=== PATIENT | male | born 1945 | race Caucasian/White ===

== ENCOUNTER 2019-12-21 18:23 | Emergency (ER) | payer OTHER ==
--- OUTSIDE RECORDS SUMMARY | 2019-12-21 18:24 | XMS REPORT | Clinical Summary ---
:1945 Author Organization [facility] Address [address] [place] [address] Care Team Providers Name Role Phone Jaiden Gomes MD Primary Care Provider Allergies Active Allergy Reactions Severity Noted Date Comments Adhesive Tape-Silicones 04/15/2016 Codeine 04/15/2016 Hydrocodone 04/15/2016 Medications Medication Sig Dispensed Refills Start Date End Date Status losartan-hydrochlo 0 04/11/2016 Active rothiazide (HYZAAR) 100-25 mg per tablet multivitamin Take 1 0 Active capsule capsule by mouth daily. omega-3 fatty Take by 0 Active acids-vitamin E mouth. (FISH OIL) 1,000 mg capsule tamsulosin TAKE 1 90 capsule 0 07/17/2019 Active (FLOMAX) 0.4 mg CAPSULE BY capsule MOUTH EVERY DAY tamsulosin Take 1 90 capsule 0 11/24/2018 Discont inued (FLOMAX) 0.4 mg capsule (0.4 9 ( Reorder) capsule mg total) by mouth daily. tamsulosin TAKE 1 90 capsule 0 03/24/2019 Discont inued (FLOMAX) 0.4 mg CAPSULE BY 0 (Re order) capsule MOUTH EVERY DAY Active Problems No known active problems Encounters Date Type Specialty Care Team Description 12/06/2019 Orders Only Urology Harjeet Pastor MD 12/02/2019 Telephone Urology Hong Wilkerson MD 11/30/2019 Telephone Urology Hong Wilkerson MD 11/17/2019 Hospital Encounter Radiology Hong Wilkerson MD 11/17/2019 Office Visit Urology Hong Wilkerson MD Renal mass (Primary Dx) 11/17/2019 Travel 07/17/2019 Refill Urology Hong Wilkerson MD 05/14/2019 Orders Only Urology Hong Wilkerson MD Elevat ed PSA (Primary Dx) 04/30/2019 Telephone Urology Hong Wilkerson MD 03/24/2019 Refill Urology Hong Wilkerson MD 03/12/2019 Telephone Urology Shorty Spring MD 03/12/2019 Telephone Urology Hong Wilkerson MD after 12/20/2018 Family History Medical History Relation Name Comments Heart disease Father Relation Name Status Comments Father Mother Social History Tobacco Use Types Packs/Day Years Used Date Never Smoker Smokeless Tobacco: Never Used Alcohol Use Drinks/Week oz/Week Comments No Sex Assigned at Date Recorded Not on file Job Start Date Occupation Industry Not on file Not on file Not on file Travel History Travel Start Travel End No recent travel history available. Last Filed Vital Signs Not on file Plan of Treatment Health Maintenance Due Date Last Done Comments COLONOSCOPY SCREENING 12/31/1995 SHINGLES VACCINES (#1) 12/31/1995 65+ PNEUMOCOCCAL VACCINE (1 of 2 - PCV13) 2010 INFLUENZA VACCINE 12/25/2019 Procedures Procedure Name Priority Date/Time Associated Diagnosis Comme nts CT ABD/PELVIC Routine 11/05/2019 9:16 AM Results for this EXTERNAL STUDY CDT procedure are in the results section. PROSTATE SPECIFIC Routine 04/26/2019 11:46 AM Elevated PSA Res ults for this ANTIGEN SLUDGE CONTROL OPERATOR procedure are i n the results section. after 12/20/[address] Abd/Pelvic External Study (11/05/2019 9:16 AM CDT) Specimen Narrative Performed At This exam was not acquired at a Methodis t facility and has not been RADIANT interpreted by a Yarsanism Provider. T he exam was imported into our imaging system. Performing Organization Address City/State/Zipcode Phone Number [facility] [address] [place] [address] Prostate specific antigen (04/26/2019 11:46 AM SLUDGE CONTROL OPERATOR) PSA 7.6 (H) < OR = 4.0 [facility] Comment: ng/mL [place] The total PSA value from this assay system is standardized against the WHO standard. The test result will be approximately 20% lower when compared to the equimolar-standardized total PSA (Deep [place]). Comparison of serial PSA results should be interpreted with this fact in mind. This test was performed using the Siemens chemiluminescent method. Values obtained from different assay methods cannot be used interchangeably. PSA levels, regardless of value, should not be interpreted as absolute evidence of the presence or absence of disease. Specimen Blood Narrative Performed At FASTING:NO [facility] FASTING: NO Resulting Agency Comment Performing Organization Information: Site ID: [id number] Name: [email or web address] Address: [address] [place] [id number] Director: Emil Alarcon Performing Organization Address City/State/Zipcode Phone Number [facility] [address] [place] [address] [phone] after 12/20/2018 Insurance Payer Benefit Plan / Subscriber ID Effective Dates Phone Addre ss Type Group MEDICARE MEDICARE PART xxxxxxxxxxx 2010-[place], [place] Medicare A AND B t AETNA MEDICARE AETNA MEDICARE xxxxxxxx 2019-[place] HMO/PPO [facility] t (Work) [id number] Advance Directives For more information, please contact: [phone] Type Date Recorded Patient Eight Section Blower Explanati on Advance Directives, Living Will and Medical Power of Assistant 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
--- OUTSIDE RECORDS SUMMARY | 2019-12-21 18:25 | XMS REPORT | Clinical Summary ---
:1945 Author Organization [facility] Address [address] [place] [address] Care Team Providers Name Role Phone Shelly Gomes MD Primary Care Provider Allergies Active Allergy Reactions Severity Noted Date Comments Codeine Nausea And Vomiting 03/07/2015 Medications Medication Sig Dispensed Refills Start Date End Date Status losartan-hydroCHLOROth Take 1 tablet by 0 Active iazide (HYZAAR) 100-25 mouth daily. mg per tablet POTASSIUM ORAL Take by mouth. 0 Active ascorbic acid (VITAMIN Take by mouth. 0 Active C ORAL) tamsulosin (FLOMAX) Take 0.4 mg by 0 Active 0.4 mg Cap 24 hr mouth daily. capsule Active Problems No known active problems Encounters Date Type Specialty Care Team Description 11/05/2019 Hospital Encounter Radiology Zachery, Second de gree hemorrhoids; Shorty Head MD [facility] a bdominal pain 11/04/2019 Surgery Gastroenterology Zachery, KYREE Head MD ENDOSCOPY,POLYP ECTOMY 11/04/2019 Anesthesia Event Gastroenterology Starr Leahy MD 11/04/2019 Hospital Encounter Gastroenterology Shorty Bingham MD 11/01/2019 Hospital Encounter Pre-Admission Testing Shorty Bingham MD 10/28/2019 Hospital Encounter Pre-Admission Testing 10/28/2019 Travel 10/22/2019 Outside Orders Zachery, Second degree hemorrhoids (Primary Dx); Shorty Head MD [facility] a bdominal pain after 12/20/2018 Social History Tobacco Use Types Packs/Day Years Used Date Never Smoker Smokeless Tobacco: Never Used Alcohol Use Drinks/Week oz/Week Comments No Sex Assigned at Date Recorded Not on file Job Start Date Occupation Industry Not on file Not on file Not on file Travel History Travel Start Travel End No recent travel history available. Last Filed Vital Signs Vital Sign Reading Time Taken Blood Pressure 119/61 11/04/2019 9:55 AM CDT Pulse 58 11/04/2019 9:55 AM CDT Temperature 36.8 C (98.2 F) 11/04/2019 9:25 AM CDT Respiratory Rate 16 11/04/2019 9:55 AM CDT Oxygen Saturation 99% 11/04/2019 9:55 AM CDT Inhaled Oxygen Concentration - - Weight 116.8 kg (257 lb 6.4 oz) 10/28/2019 9:0 3 AM CDT Height 179.1 cm (5' 10.5") 10/28/2019 9:03 AM CDT Body Mass Index 36.41 10/28/2019 9:03 AM CDT Plan of Treatment Not on file Procedures Procedure Name Priority Date/Time Associated Comments Diagnosis CT ABDOMEN/PELVIS Routine 11/05/2019 9:22 Result s for this WITH IV CONTRAST AM CDT procedure a re in the results section. POCT-CREATININE Routine 11/05/2019 9:16 Results for this AM CDT procedure are i n the results section. REPORT OF PROCEDURE 11/04/2019 9:25 - ENDOSCOPY URL AM CDT TISSUE EXAM AP Routine 11/04/2019 9:11 Results for this AM CDT procedure are i n the results section. UPPER 11/04/2019 9:00 Epigastric pain ENDOSCOPY,BIOPSY AM CDT UPPER 11/04/2019 9:00 Epigastric pain ENDOSCOPY,POLYPECTO AM CDT MY SARS-COV2/RT-PCR Routine 11/01/2019 9:03 Results for this ([facility] LAB[facility]) AM CDT procedure are in the results section. after 12/20/[address] abdomen/pelvis with IV contrast (11/05/2019 9:22 AM CDT) Specimen Narrative Performed At Addendum Begins GE RIS REPORT STATUS:A Addendum: The urinary bladder and prostate are unr emarkable. End of addendum. Signed: Anayeli Manzano MD Report Verified Date/Time:11/05/2019 10:50:11 Reading Location: [address] Radiolog y Reading Room Addendum Ends FINAL REPORT CLINICAL HISTORY:Ventral hernia TECHNIQUE:CT of the abdomen and pelv is is performed with intravenous contrast administration. Ent shantell contrast was administered as well This exam was perfo rmed according to our departmental dose-optimization program w hich includes automated exposure control, adjustment of the mA a nd/or kV according to patient size and/or use of iterative reconstruct ion technique. Study is dated 11/05/2019 COMPARISON: None FINDINGS: Lung bases are clear. There is fatty infiltration of the liver. Two hypodensities are seen in the right lobe of the liver, one in the inferior tip of the right lobe me asuring approximately 7 mm and the second near the superior aspect of the right lobe measuring approximately 1.5 cm. Both are compatibl e with cysts. Gallbladder has been removed. No biliary dilatation is n oted. Pancreas and adrenals are unremarkable. There is a heterogeneously enhancing mas s in the medial lower pole of the right kidney measuring approximately 4.7 x 3.5 x 3.6 cm. Multiple parapelvic cysts are seen in the left ki dney. There are adjacent to one another and it is difficult to deter mine an accurate size however the largest appears to measure approxima tely 4.6 x 5.0 cm. No hydronephrosis or renal calculus visuali zed. The patient is status post gastric bypas s. Bowel is otherwise unremarkable. The appendix is within nor mal limits. No free fluid or air. No lymphadenopathy. Vascular structures are grossly unremark able. 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 Bones are osteopenic. Degenerative changes are see n in the spine. Minimal scoliosis of the lumbar spine. IMPRESSION: 1. 4.7 x 3.5 x 3.6 cm heterogeneous righ t renal mass as described in detail above. The mass should be conside red renal cell carcinoma until proven otherwise and consultation with urology is recommended. 2. Multiple left renal parapelvic cysts. 3. Hepatic steatosis and two hepatic cys ts. Signed: Anayeli Manzano MD Report Verified Date/Time:11/05/2019 10:16:00 Reading Location: [address] Radiolog y Reading Room Procedure Note Interface, External Ris In - 11/05/2019 10:52 AM CDT Addendum Begins REPORT STATUS:A Addendum: The urinary bladder and prostate are unr emarkable. End of addendum. Signed: Anayeli Manzano MD Report Verified Date/Time: 11/05/2019 1 0:50:11 Reading Location: [address] Radiolog y Reading Room Addendum Ends FINAL REPORT CLINICAL HISTORY: Ventral hernia TECHNIQUE: CT of the abdomen and pelvis is performed with intravenous contrast administration. Ent shantell contrast was administered as well This exam was perfo rmed according to our departmental dose-optimization program w hich includes automated exposure control, adjustment of the mA a nd/or kV according to patient size and/or use of iterative reconstruct ion technique. Study is dated 11/05/2019 COMPARISON: None FINDINGS: Lung bases are clear. There is fatty infiltration of the liver. Two hypodensities are seen in the right lobe of the liver, one in the inferior tip of the right lobe me asuring approximately 7 mm and the second near the superior aspect of the right lobe measuring approximately 1.5 cm. Both are compatibl e with cysts. Gallbladder has been removed. No biliary dilatation is n oted. Pancreas and adrenals are unremarkable. There is a heterogeneously enhancing mas s in the medial lower pole of the right kidney measuring approximately 4.7 x 3.5 x 3.6 cm. Multiple parapelvic cysts are seen in the left ki dney. There are adjacent to one another and it is difficult to deter mine an accurate size however the largest appears to measure approxima tely 4.6 x 5.0 cm. No hydronephrosis or renal calculus visuali zed. The patient is status post gastric bypas s. Bowel is otherwise unremarkable. The appendix is within nor mal limits. No free fluid or air. No lymphadenopathy. Vascular structures are grossly unremark able. 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 Bones are osteopenic. Degenerative changes are see n in the spine. Minimal scoliosis of the lumbar spine. IMPRESSION: 1. 4.7 x 3.5 x 3.6 cm heterogeneous righ t renal mass as described in detail above. The mass should be conside red renal cell carcinoma until proven otherwise and consultation with urology is recommended. 2. Multiple left renal parapelvic cysts. 3. Hepatic steatosis and two hepatic cys ts. Signed: Anayeli Manzano MD Report Verified Date/Time: 11/05/2019 1 0:16:00 Reading Location: [address] Radiolog y Reading Room Performing Organization Address City/State/Zipcode Phone Number GE RIS POC-Creatinine (11/05/2019 9:16 AM CDT) POC-Creatinine 1.1Comment: : TESTED AT 0.6 - 1.3 mg/dL [facility] [address] [facility], [address]: Child Life Specialist/Ore Washer ID = [id number] for Laura Plunkett POC-EGFR 66 mL/min/1.73M2 [facility] Specimen Blood Performing Organization Address City/[facility] Phone Number [address] [address] CENTER REPORT OF PROCEDURE - ENDOSCOPY URL (11/04/2019 9:25 AM CDT) Narrative Performed At This result has an attachment that is no t available. Tissue Exam (11/04/2019 9:11 AM CDT) Case Report Surgical Pathology Report Case: [id number] [facility] Authorizing Provider:Shorty Haro MDCollected: 11/04/2019 09:11 AM [facility] Endoscopy Received:11/04/2019 11:42 AM Services Pathologist: Alda Van MD Specimens: A) - Polyp, G astric, via forcep B) - Biopsy, Gastric, via forcep R/O H-pylori DIAGNOSIS A. 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 STOMACH, ANTRUM/RANDOM, BIOPSY - CHRONIC INACTIVE GASTRITIS, MINIMAL-MILD - NO INTESTINAL METAPLASIA, DYSPLASIA OR CARCI NOMA IDENTIIFIED - NO HELICOBACTER PYLORI LIKE ORGANISMS IDENTI FIED ON WARTHIN STARRY STAIN Signing Pathologist Direct Phone Line: CPT Code(s) 50377 X 2, [address] [facility] [place] [place] CLINICAL HISTORY Procedure: upper endoscopy, polypectomy and upper endoscopy, Biopsy [facility] Pre and postop diagnosis: Epigastric pain [facility] SPECIMEN SOURCE A. Polyp, gastric, via forceps; [facility] B. Biopsy, gastric, via forceps [facility] rule out H. pylori GROSS DESCRIPTION A. The specimen is received in formalin labeled with the patient's name, accession number and "polyp, gastric" and consists of two godinez- pink mucosal-covered pieces of tissue measuring 0.2 x 0.2 x [address] [facility] The specimen is submitted entirely following fi ltration in a cassette A1. [facility] B. The specimen is received in formalin labeled with the patient's name, accession number and "Biopsy gastric" and consists of one godinez-pink mucosal- covered piece of tissue measuring 0.2 x 0.2 x 0.1 cm. The specimen is submitted en tirely following filtration in a cassette B1. HS/pl MICROSCOPIC DESCRIPTION Performed. [facility] SPECIAL STUDIES The interpretation of this c ase included the use of immunohistochemistry or special stains. [facility] Control Slides Examined: In -house known positive controls were evaluated along with the test tissue. These control slides run alongside of the patients sample show appropriate staining. Internal posit ashtyn and negative controls when available are mu lopez Immunohistochemistry technic al testing was performed at [facility], Pathology Laboratory where it was developed and its performance characteristics were determined. It has not be en cleared or approved by [facility] U.S. Food and Drug Administration. The FDA has determined that such clearance or approval is not necessary. The test is used for clinical purposes. It should not be regarde d as investigational or for research. This laboratory is certified under the Clinical Laboratory Improvement Amendments of 1988 (CLIA-88) as qualified to perform high complexity clinical laboratory testing. Gross assessment was [facility] performed at [place], Department of [facility] Pathology, [address] [place] [id number], Technical component was [facility] performed at [place], Department of [facility] Pathology, [address] [place] [phone], Professional component [facility] was performed at [place], Department of [facility] Pathology, [address] [place] [phone], Specimen Tissue - Polyp, Gastric Tissue - Gastric biopsy sample (specimen ) Performing Organization Address City/State/Zipcode Phone Number [address] [phone] [place] SARS-CoV2/RT-PCR (Asymptomatic ONLY) (11/01/2019 9:03 AM CDT) SARS-COV2/RT-PCR Negative Not Detected, Negative SLE NON -INTERFACED REFERENCE LABS SARS-COV-2 PERFORMING LAB CPL SLE N ON-INTERFACED REFERENCE LABS Specimen Other Performing Organization Address City/State/Zipcode Phone Number [facility] NON-INTERFACED REFERENCE LABS after 12/20/2018 Insurance Payer Benefit Plan / Subscriber ID Type Phone Address Group AETNA - MEDICARE AETNA MEDICARE HMO xxxxxxxx [id number] [place] [address] CDC REVIEW CDC REVIEW xxxxxxxx [place] [address]
--- OUTSIDE RECORDS SUMMARY | 2019-12-21 18:26 | XMS REPORT | Continuity of Care Document ---
:1945 Author Organization [facility] t Address [address] [place] [address] Care Team Providers Name Role Phone JUDI Primary Care Physician Unavailable Ed PALENCIA Attending Clinician Unavailable JUDI Attending Clinician Unavailable SYSTEM, NOT IN Attending Clinician Unavailable Cristina FONTENOT Attending Clinician Unavailable Cristina Fontenot MD Attending Clinician INGRID Attending Clinician Unavailable Ingrid ABREU Attending Clinician Unavailable BECK ART Attending Clinician Unavailable Beck Blair Attending Clinician Judi ABREU Attending Clinician Monica GARCIA, Wally Attending Clinician Unavailable Ed Palencia MD Attending Clinician Carlota ABREU Attending Clinician Catherine Pastor MD Attending Clinician Tevin GARCIA, A Attending Clinician Unavailable Rhea ABREU Attending Clinician Sonido Serrano MD Attending Clinician Sonido SERRANO Attending Clinician Unavailable Manuela Leahy MD Attending Clinician Rehan Spring MD Attending Clinician JUDI Admitting Clinician Unavailable Sonido SERRANO Admitting Clinician Unavailable Payers Payer Name Policy Policy Number Effective Expiration Source Type Date Date AETNA MEDICARE PPO [id number] 00:00:00 MEDICAREMEDICARE PART xxxxxxxxxxx 2010 Jace Lo AND 00:00:00 [place] Bxxxxxxxxxxx8[place] xxxxxxxx 2019 [place] MED[place] H[place]/PPO 00:00:00 Methodis t [id number] resentHMO AETNA - MEDICARE MGD xxxxxxxx [facility] CAREAETNA MEDICARE - [facility] HMO POS Center [id number] [id number] [address] [facility] REVIEWCDC xxxxxxxx [facility] REVIEW[facility]PO - [facility] [phone] Problems Condition Condition Condition Status Onset Resolution Last Treating Co mments Source Name Details Category Date Date Treatment Clinician Date Renal mass Renal mass Disease Active M D 7-12 Anderso 00:00: n 00 Allergies, Adverse Reactions, Alerts Allergy Allergy Status Severity Reaction(s) Onset Inactive Treating Comm ents Source Name Type Date Date Clinician Adhesive Propensi Active 2015-05 Elissato n Tape-Gaby ty to 06-15 Methodi icones adverse 00:00: st reaction 00 s to drug Codeine Propensi Active 2015-05 Elliott ty to 06-15 Methodi adverse 00:00: st reaction 00 s to drug Hydrocod Propensi Active 2015-05 Cassandra n one ty to 06-15 Methodi adverse 00:00: st reaction 00 s to drug Codeine Drug Active Nausea And 2014-05 [facility] - nce 00:00: Medical 00 Center Family History Family Member Diagnosis Comments Start Date Stop Date Source Natural father Heart disease Earl Langston Social History Social Habit Start Date Stop Date Quantity Comments Source Sex Assigned At M MD Bis[place] on Exposure to Not sure MD King SARS-CoV-2 (event) Tobacco use and 2019-12-20 2019-12-20 Never used MD Biswas on exposure 00:00:00 00:00:00 Alcohol intake 2019-12-20 2019-12-20 Ex-drinker MD Nico villatoro 00:00:00 00:00:00 (finding) Smoking Status Start Date Stop Date Source Never smoker MD King Medications Ordered Filled Start Stop Current Ordering Indication Dosage Frequency Signature Comments Components Source Medication Medication Date Date Medication? Clinician (SIG) Name Name ascorbic 2020-0 Yes 1{tbl} Take 1 MD acid 7-13 tablet by Nico (ascorbic 18:19: mouth n acid with 06 twice enrico hips) daily. 500 mg tablet losartan-hy 2020-0 Yes 1{tbl} Take 1 MD drochloroth 6-17 tablet by And thompson dueñas 00:00: mouth n (HYZAAR) 00 daily. 100-25 mg per tablet tamsulosin 2020-0 Yes .4mg QD Take 0.[address] (FLOMAX) 6-04 mg by [facility] - 0.4 mg Cap 08:58: mouth Medica l 24 hr 47 daily. Center capsule ascorbic 2020-0 Yes Take by [facility] acid 6-04 [facility] - (VITAMIN C 08:58: Medical ORAL) 08 Center losartan-hy 2020-0 Yes 1{tbl} QD Take [address] droCHLOROth 6-04 tablet by Harman es - iazide 08:58: mouth Medical (HYZAAR) 07 daily. Center 100-25 mg per tablet POTASSIUM 2020-0 Yes Take by [facility] ORAL 6-04 [facility]. [facility] - 08:58: Medical 07 Center pantoprazol 2020-0 Yes 1{tbl} Take 1 MD e 5-11 tablet by Nico (PROTONIX) 00:00: mouth n 40 mg EC 00 daily. tablet tamsulosin 2020-0 Yes TAKE 1 [place] (FLOMAX) 2-22 CAPSULE BY Metho di 0.4 mg 00:00: MOUTH st capsule 00 EVERY DAY tamsulosin 2018-05 2020- No TAKE 1 [place] (FLOMAX) 0-30 02-22 CAPSULE BY Meth gayle 0.4 mg 00:00: 11:[address] capsule 00 :26 EVERY DAY tamsulosin 2019-0 2019- No .4mg QD Take 1 [place] (FLOMAX) 7-02 10-30 capsule Methodi 0.4 mg 00:00: 00:00 (0.[address] capsule 00 :00 total) by mouth daily. multivitami 2019- Yes 1{capsu QD Take 1 [place] capsule 6-26 le} capsule by Meth gayle 08:20: mouth st 08 daily. omega-3 Yes Take by Elliott fatty 6-26 mouth. Methodi acids-vitam 08:20: st in E (FISH 08 OIL) 1,000 mg capsule losartan-hy 2015-05 Yes [place] drochloroth 1-17 Methodi iazide 00:00: st (HYZAAR) 00 100-25 mg per tablet Vital Signs Vital Name Observation Time Observation Value Comments Source WEIGHT 2019-12-20 08:54:00 113.5 kg WEIGHT 2019-12-20 08:54:00 113.5 kg Systolic blood 2019-12-20 13:54:00 140 mm[Hg] pressure Diastolic blood 2019-12-20 13:54:00 86 mm[Hg] MD Aniya shepherd pressure Heart rate 2019-12-20 13:54:00 65 /min MD Maldonado soriano Body temperature 2019-12-20 13:54:00 36.39 Corazon MD Wally curielon Respiratory rate 2019-12-20 13:54:00 18 /min MD Wally curielon Body weight 2019-12-20 13:54:00 113.5 kg MD Maldonado soriano BMI 2019-12-20 13:54:00 36.43 kg/m2 MD Maldonado soriano Oxygen saturation in 2019-12-20 13:54:00 98 /min MD King Arterial blood by Pulse oximetry Body height 2019-12-06 18:09:00 176.5 cm MD Maldonado soriano Systolic blood 2019-11-04 09:55:00 119 mm[Hg] [facility] Diastolic blood 2019-11-04 09:55:00 61 mm[Hg] [facility] Heart rate 2019-11-04 09:55:00 58 /min [facility] Respiratory rate 2019-11-04 09:55:00 16 /min [facility] Oxygen saturation in 2019-11-04 09:55:00 99 /min [facility] Arterial blood by Medical Ce marisela Pulse oximetry Body temperature 2019-11-04 09:25:[address] [facility] Body height 2019-10-28 09:03:00 179.1 cm [facility] Body weight Measured 2019-10-28 09:03:[address] [facility] BMI 2019-10-28 09:03:00 36.41 kg/m2 [facility] Procedures Procedure Date / Time Performing Clinician Source Performed TYPE AND SCREEN 2019-12-20 16:30:00 Jamil Qiuntero MD ABORH 2019-12-20 16:30:00 Jamil Quintero MD ANTIBODY SCREEN 2019-12-20 16:30:00 Jamil Quintero MD CLOT EXPIRATION DATE 2019-12-20 16:30:00 Jamil Quintero MD rson TMP INTERPRETATION ANTIBODY 2019-12-20 16:30:00 Jamil Quintero MD SCREEN NEGATIVE HC COVID19 AUTOMATED PCR 2019-12-20 13:39:00 Luis F Anderson MD EKG, 12-LEAD (SCHEDULED) 2019-12-20 00:00:00 Hue Art MD [place] XR CHEST 2 VW 2019-12-06 20:38:39 Manpreet Fontenot MD BASIC METABOLIC PANEL, 2019-12-06 20:18:00 Manpreet Fontenot MD CALCIUM TOTAL COMPLETE BLOOD COUNT W/ 2019-12-06 20:18:00 Manpreet Fontenot MD DIFFERENTIAL COMPREHENSIVE METABOLIC 2019-12-06 20:18:00 Manpreet Fontenot MD PANEL TYPE AND SCREEN 2019-12-06 20:18:00 Mapnreet Fontenot MD HEPATITIS C VIRUS ANTIBODY 2019-12-06 20:18:00 Manpreet Fontenot MD GLUCOSE LEVEL 2019-12-06 20:18:00 Manpreet Fontenot MD ELECTROLYTE PANEL 2019-12-06 20:18:00 Manpreet Fontenot MD Maldonado [facility] SERUM CREATININE 2019-12-06 20:18:00 Manpreet Fontenot MD True on .GLOMERULAR FILTRATION RATE 2019-12-06 20:18:00 Manpreet Fontenot MD CALCIUM LEVEL TOTAL 2019-12-06 20:18:00 Manpreet Fontenot ALBUMIN LEVEL 2019-12-06 20:18:00 Manpreet Fontenot MD ALKALINE PHOSPHATASE 2019-12-06 20:18:00 Manpreet Fontenot MD ALANINE AMINOTRANSFERASE 2019-12-06 20:18:00 Manpreet Fontenot ASPARTATE AMINOTRANSFERASE 2019-12-06 20:18:00 Manpreet Fontenot MD TOTAL PROTEIN 2019-12-06 20:18:00 Manpreet Fontenot MD FRACTIONATED BILIRUBIN 2019-12-06 20:18:00 Manpreet Fontenot MD Results CBC 2019-12-06 20:18:00 Manpreet Fontenot MD Andthompson villatoro MANUAL DIFFERENTIAL 2019-12-06 20:18:00 Manpreet Fontenot MD And erson ABORH 2019-12-06 20:18:00 Manpreet Fontenot MD ANTIBODY SCREEN 2019-12-06 20:18:00 Manpreet Fontenot MD BLOOD UREA NITROGEN 2019-12-06 20:18:00 Manpreet Fontenot MD And erson CLOT EXPIRATION DATE 2019-12-06 20:18:00 Manpreet Fontenot MDson TMP INTERPRETATION ANTIBODY 2019-12-06 20:18:00 Manpreet Fontenot MD SCREEN NEGATIVE TMP HCVAB INTERP 2019-12-06 20:18:00 Manpreet Fontenot MD True on CONFIRM ABORH TYPE 2019-12-06 20:08:00 Manpreet Fontenot MD Bam rson URINE CULTURE 2019-12-06 19:56:00 Manpreet Fontenot MD GUA 2019-12-06 19:56:00 Manpreet Fontenot MD GUA MICROSCOPIC 2019-12-06 19:56:00 Manpreet Fontenot MD HC COVID19 AUTOMATED PCR 2019-12-04 14:11:00 Belinda Abarca MD OSI CT ABDOMEN AND PELVIS 2019-11-05 18:19:[address] ABDOMEN/PELVIS WITH IV 2019-11-05 09:22:00 Shorty Serrano [facility] CT ABD/PELVIC EXTERNAL 2019-11-05 09:16:00 Hong Wilkerson [facility] STUDY POCT-CREATININE 2019-11-05 09:16:00 Shotry Serrano [facility] REPORT OF PROCEDURE - 2019-11-04 09:25:17 Shorty Serrano [facility] - ENDOSCOPY [facility] TISSUE EXAM 2019-11-04 09:11:00 Shorty Serrano [facility] UPPER ENDOSCOPY,POLYPECTOMY 2019-11-04 09:00:00 Shorty Serrano [facility] UPPER ENDOSCOPY,BIOPSY 2019-11-04 09:00:00 Shorty Serrano [facility] PATHOLOGY OUTSIDE 2019-11-04 00:00:00 Alda Van MD INTERPRETATION SARS-COV2/RT-PCR ([facility] & 2019-11-01 09:03:00 Shorty [facility]errano [facility] PROSTATE SPECIFIC ANTIGEN 2019-04-26 11:46:00 Hong Wilkerson [facility] Plan of Care Planned Activity Planned Date Details Comments Source Future Scheduled Test 2019-12-25 INFLUENZA VACCINE [facility] 00:00:00 [code = INFLUENZA VACCINE] Future Scheduled Test 2010 65+ PNEUMOCOCCAL Ho [facility] 00:00:00 VACCINE (1 of 2 - PCV13) [code = 65+ PNEUMOCOCCAL VACCINE (1 of 2 - PCV13)] Future Scheduled Test 1995-12-31 COLONOSCOPY SCREENING [facility] 00:00:00 [code = COLONOSCOPY SCREENING] Future Scheduled Test 1995-12-31 SHINGLES VACCINES [facility] 00:00:00 (#1) [code = SHINGLES VACCINES (#1)] Future Appointment 2019-12-23 Yvonne West MD, Stacie King 12:20:00 [place] [address] Future Appointment 2019-12-23 Yvonne West MD, Stacie King 12:20:00 [place] [address] Encounters Start End Encounter Admission Attending Care Care Encounter Source Date/Time Date/Time Type Type Clinicians Facility Department ID 2019-12-16 Outpatient BILL PALENCIA MDA MDA [id number] 14:31:18 JULI villatoro 2019-12-07 Outpatient [facility] [id number] 10:24:35 YVONNE villatoro 2019-12-06 Outpatient LUCIE MARQUEZ MDA [id number] 13:52:23 PROVIDER True villatoro 2019-12-21 2019-12-21 Outpatient EL JUDI, MDA MDA [id number] 00:00:00 00:00:00 YVONNE villatoro 2019-12-20 2019-12-20 Outpatient EL SUNNI, MDA MDA [id number] 08:47:19 10:55:18 MANPREET villatoro 2019-12-20 2019-12-20 Outpatient EL INGRID, MDA MDA [id number] 10:45:00 10:45:00 JAMIL villatoro 2019-12-20 2019-12-20 Outpatient EL ADDIS, MDA MDA [id number] 10:00:08 10:00:08 HUE villatoro 2019-12-20 2019-12-20 Outpatient EL JUDI, MDA MDA [id number] 08:31:32 08:31:32 YVONNE villatoro 2019-12-06 2019-12-06 Outpatient BILL FONTENOT, MDA MDA [id number] 14:56:36 23:59:00 MANPREET villatoro 2019-12-06 2019-12-06 Outpatient EL SUNNI, MDA MDA [id number] 15:25:11 15:25:11 MANPREET villatoro 2019-12-06 2019-12-06 Outpatient EL JUDI, MDA MDA [id number] 13:16:13 13:16:13 YVONNE villatoro 2019-12-06 2019-12-06 Outpatient EL MDA MDA [id number] 13:05:18 13:08:05 True villatoro 2019-12-06 2019-12-06 Outpatient EL JUDI, MDA MDA [id number] 13:06:32 13:06:32 YVONNE villatoro 2019-12-04 2019-12-04 Outpatient EL JUDI, MDA MDA [id number] 09:04:12 09:04:12 YVONNE villatoro 2019-11-17 2019-11-17 Outpatient [facility] [id number] [place] 00:00:00 00:00:00 M, HONG [address] 2019-11-17 2019-11-17 [id number] [place] 00:00:00 00:00:00 M, HONG [address] Results Test Description Test Time Test Comments Results Result Comments Source COVID-19 (SARS-CoV-2) PCR-Asymptomatic 2019-12-20 23:43:4 7 Test Item Value Reference Range Interpretation Comme nts COVID19 (SARS CoV-2) Not Detected Not Detected This te st is a qualitative Result (test code = reverse- transcriptase polymerase 61164-6) chain reaction (RT-PCR) developed for [facility] system and intended for the detection of SA RS CoV-2 RNA in human nasophary ngeal specimens from patients w ho meet COVID-19 clinical and/or epidemiological criteria. This assay has been approved by the FDA for use only under Emergency Use Authorization ( EUA) in laboratories th at have been CLIA-certified to perform moderate-comple xity and high-complexity tests. The performance carmen racteristics of this assay were verified by the Microbiology La boratory at [facility]. Results must be interpr eted within the context of all relevant clinical and laboratory findings and should not form the sole basis for a diagnosis or treatment decision.Electromechanisms Design Drafter al controls are included to ass ess for possible amplification i nhibitors. If inhibition is d etected, testing is repeated and if inhibition is confirmed the s pecimen is resulted as "In valid". "Inconclusive" results are due to partial ampl ification of SARS-CoV-2 targ ets. When this occurs, results are confirmed by repeat testing before issuing an "Inconclusive" result. When an "Invalid" or "I nconclusive" results occur, it is recommended to wait a minim um of 3 days before submitti ng a new specimen for testing if clinically indicated. COVID19 SARS Source RFP WRITER Swab (test code = 56777) COVID19 SARS Pre-OR Procedure Indication (test code = 18803) [facility] Interpret[facility] Antibody Screen [id number] 21:21:00 Test Item Value Reference Range Interpretation Comments TMP Auto Neg At the present ABSC Interp time, patient (test code = plasma shows no ____ALONZO NORIEGA 7535) evidence of RBC KNOPFELMACHE R alloantibodies. MARKOS,Dicta roger by: ALONZO BURROWS,Dictated Date/Time: 11.24 16:21 PM CDT Transcribed Taras e/Time: 12.20.2019 16:2 1 PM CDTElectronical ly Signed By: ALONZO AGUIRRE, on 12.20.2019 1 6:21 PM MD KingAntibody [id number] 18:29:57 Test Item Value Reference Range Interpretation Comments ABSC. (test code = 890-4) Negative ABSC MD [id number] 18:29:56 Test Item Value Reference Range Interpretation Comments ABORh. (test code = 882-1) A NEG MD KingClot Expiration [id number] 18:29:52 Test Item Value Reference Range Interpretation Comments T & S Expiration (test code = 12/23/2019 5318) MD KingPathology Outside [id number] 18:34:00 Test Item Value Reference Range Interpretation Comments Materials Received (test f3xpvVBmHRRaiQCmGrRt code = 9973) MMBlNVRbj9krWOJebRYx ZzEwMzNcZnRuYmpcdWMx YZZeKrVyn8owm198uSQy q4imYWLfOjX3vMAhOGEh jEIeP218XWInVQijy7dm z1VcAZTnhTGmk4Q5USWT ymwxbVz5iNorC54wl5X1 QrmfB2odOEEuBTIhW2Sa HP3cJCTuVcl7PSF3YCT5 UBBuEFJyS6DlZQ7uHPJe sOAaRPe6g4mpuSzxACVy GNA5f5agYYvvoaGjKM9q nv7fwKc1i3dwjeJzBWJj FMVamVFQTYJfN1UrgZji Lx5jcIc1mGqlPpkyNCK1 Dnc3CR9kgw69zgr0qVlg FOPrkywgCuZ8QIvcVTIs qywdPQi6ZEbjVXYnjLqt MFxtYXJncjcyMFxtYXJn gYE6TBLjeLDoX4RrYCOp RZauGKJgwfi4NjNbXd9l eQOfnMjwFWvul7hnp4na dNKuTcd9VZWvEdXsHeug OAfyi3Hen5etDDBztu0f GFI6nYMjkUyyn5A3aDCq TEAhwQUxwvSiBWCrak78 jLYjeTJziOOvqw6sgfMd cZKdeJAsLXN1pYElsfVz FCArgLAwVDYeFI8bhWCo HRDjcK5mwnnlKBAxOhOp xkyiQIThtKvzplXzGd3n eRwcCBA6RWaoJ7guxU1v GiK8HLefW1mteS2hPOx7 UWbnfVR4LJLksL4iMR9z rnnbw3suJdDjTE4muclo k7njQtMhYA2ybaz0r0dw WHN2ZAajZZWzIrK3urV0 NDBcaGVhZGVyeTcyMFxm j043EYX2YqLvNKBuv2Qt L2JdhYxhN29zuVfmD31z BWJsgGvcrP7yzIxikY8s IwKmNpQqTRy6ec87UEj2 swbdsCbeWDn0gjQoOENg CCO9THMglANzYKUeZ7o8 jhWdQFOfJNU7FLIttKYa AKUkX0i0otFkTAC2QIe1 cnBhZGRmdDNcdHJwYWRk YjBcdHJwYWRkZmIzXHRy iJEkpUCrpWLruU0ldScu GFMyrBTkcJ5zLFT7YDOl cmgzMjBcdHJoZHJcbHRy gq59QQBocfPmiHUwiGkq vCLxHNB8SSFhZOIuOKZl SAB5UTWcTbIfebRfDZso bGJyZHJiXGJyZHJzXGJy MOL2JJCcCvGagfFkFGsw bGJyZHJsXGJyZHJzXGJy SYO0MBCbCrImmrAzMKwn bGJyZHJyXGJyZHJzXGJy MBH3COTvDsVosvEhYJzk bHBhZHQxMFxjbHBhZGZ0 D4xvlALeYMZrBWdyaZMw CTAlU1wsqHFsKMswRABd cGFkZmwzXGNscGFkYjBc T1fbAQHxXuGdZ9MhlMt8 MDAwXGNsdmVydGFsdFxj jBKvPLU4VCLaXMMoPRSk WVV4ODIhEcPnnfOiJOwj bGJyZHJiXGJyZHJzXGJy CER8TZLhBgVqbfXqFYeh bGJyZHJsXGJyZHJzXGJy XXB7SLDyCpZiytZkDPux bGJyZHJyXGJyZHJzXGJy EXO3EUTkZvAipqVyYYcs bHBhZHQxMFxjbHBhZGZ0 B7whrACdYXKqMRzonERy UUOsI6lmiSDqNBkrXRSc cGFkZmwzXGNscGFkYjBc N8rtPVOyAcIlP0IhbRm5 NjAwXGNsdmVydGFsdFxj rWFhYQK2RUCpIIReYFXi SCJ7OGFsTpZpfwHmUPfn bGJyZHJiXGJyZHJzXGJy ELF4RXMtOeZqzgIwBSlx bGJyZHJsXGJyZHJzXGJy RFH3SWUzIbRhzxUiZMmt bGJyZHJyXGJyZHJzXGJy HMK4VTZbHyJqpoAlXOyv bHBhZHQxMFxjbHBhZGZ0 A1vhxKMtXMHpERuqwRCl SFAwE8hsoUHoKQmbWNJj cGFkZmwzXGNscGFkYjBc J9egJZCbByLmK4PskRf7 EkOjIXVceiHrzE01Vbvw h1SiRVXmILK8UBqhLBiy bFxwbGFpblxmMVxmczIw NToislyjUWXoNBzzE1vf HpGpPLDvaJdoNGhxo8Vh XGYxXGNmMlxmczIwXGIg ZMTwROEswN9tJktmP4Nz dA7hZRqhGmauE4hrECZd u0LplU4iCVgieXUcixxr MVxmczIwXGxhbmcxMDMz SEqsM3ouGxZlJZKsrWsm HDkrk7RkQGHzQAYxZjst ycBhXUg8ikHsMBOfdOsq oQElYHdcagKkgZwqz0Fd fcXtpEuiTDUoBSc9jeEb csznuLi7xWTguTpkTXKl yIgidK5vRfJuIxKzTVmp bGFpblxmMVxmczIwXGxh krbdJUHsMTxyI2adGjGg LCTdnVfhWGlbf1CmUUDf OURwXfhtluLeYNXpW88c bGVjdGVkXHBsYWluXGYx XGZzMjBcbGFuZzEwMzNc aGljaFxmMVxkYmNoXGYx LGvlW8yfOuOqG8IyEAYc GdKrbEKhU9pgX4NwlEjg YXJkXGludGJsXHNzcGFy CTE4dDYjfeYxiDKehRTq ELMkOMssGWS5wNTmwqbg pABdlhwvLRybjwY1VTAd YWluXGYxXGZzMjBcbGFu ZzEwMzNcaGljaFxmMVxk DoKaHNHuMAdcU6scSsHn S8FoQEEwAvDqZnLURGOe aXZlZFxwbGFpblxmMVxm czIwXGxhbmcxMDMzXGhp A1qkCeHkIVMjaLjrKYos f7RuAEAtYLRjDsmzlxUl VTn7xgZjLMWogQpbxR57 Oqhlgl49BPXqo9qxOOHv M3BmgOOaSKOdbDHuJLvd MDhcdHJwYWRkZmwzXHRy cGFkZHIxMDhcdHJwYWRk ZnIzXHRycGFkZHQwXHRy jVCiQMK1Q4t3bpWyUPGb JTo4fkRnIEMeDtYmlKSp PNO0AIw9KuewtwL6fHAp S5v6DyujolFfNQtsfFVt ud06IEQudsQqpVAmeSgb fAGgFZQ8IOAqYLPfOCFs PLO9WNFjByWrevDfNUev bGJyZHJiXGJyZHJzXGJy IHN5VXEuXfSfnrNiVJhy bGJyZHJsXGJyZHJzXGJy CHI2ECTrWmEvqsHkEOnr bGJyZHJyXGJyZHJzXGJy EXV7CALnGjFdlqZwVOjo bHBhZHQxMFxjbHBhZGZ0 Z3zvdSXyHXDfQDtphDOm KUHkU7lcfWYbLEohIWWz cGFkZmwzXGNscGFkYjBc R0mfAIKgUqOaY8RehYh4 MDAwXGNsdmVydGFsdFxj eAKvEPD6QXRoVQDiNPUl QSB3KEDgVuFjxuLaOGnq bGJyZHJiXGJyZHJzXGJy FXW9OJUzFlNlveAdNKhm bGJyZHJsXGJyZHJzXGJy HVA6FDWbTgEttyUtRRci bGJyZHJyXGJyZHJzXGJy JZU2NEOjVjPjwsDsDQuj bHBhZHQxMFxjbHBhZGZ0 S3zhmLFhNLOdNLxgsQMz VMLaU7riuZKaEUrbGVFa cGFkZmwzXGNscGFkYjBc V8wmTGMqDlYoD5KivHu1 NjAwXGNsdmVydGFsdFxj fMWfQMW1HILhMPDyATUe SDT4EQEpEwLscnDdGYqv bGJyZHJiXGJyZHJzXGJy ZFN4ZUXhXdRkulFtPIte bGJyZHJsXGJyZHJzXGJy SWY1BUGmZyRgezBcXKhb bGJyZHJyXGJyZHJzXGJy URF1OUHdEcIdsiLeMTcl bHBhZHQxMFxjbHBhZGZ0 D9rgmLHlWWTuMDnsfFYl NKMfB3rksFRnTQpmGWVs cGFkZmwzXGNscGFkYjBc P3zmQSHvOuNlN1DxyBr1 DwIiPYDgtcOlwW75Emkp x7HfCLQxXNY3UGzvOVro bFxwbGFpblxmMFxmczI0 XHBsYWluXGYxXGZzMjBc bGFuZzEwMzNcaGljaFxm STkeApSzLAAaCJmzO2qc NzHjI2EvONOaNvUqLN3x OfCnDWY8SiS2KBE5DLQS YHHiZNKAF8ANKyclDQNL S7TxbXqmuL7qSeEdJfVh OBxxIE5yWHOqL0fmeBCg NHXyQKVvW3pyOwNeuH4b aFxmMVxjZjJcZnMyMFxs dHJjaFxjZWxsXHBhcmRc zN48Hqglh1JuJNPhCIF7 MFxzMFxxbFxwbGFpblxm UTcowrI7ESTfRGnbSWUa XGZzMjBcbGFuZzEwMzNc aGljaFxmMVxkYmNoXGYx HVnbV3gvWeMdI8UnNBUt IcUaXf6zOF0uMZNlSVTw YWluXGYxXGZzMjBcbGFu ZzEwMzNcaGljaFxmMVxk MhRyJJMdIOclC6saBdEm M8VdPTHsVoCzgGSlJ1fu Z3BelZafKYSiBUsvgMRd IJJccNSgQFK8pEMwwjTh iRkcwPpacF9eRvUtUlBk NFxwbGFpblxmMVxmczIw KAtgvyysNMMoUFpmG6vw KiWmTGVcvNdnFBnpi3Ot XGYxXGNmMlxmczIwIDcv MjMvMjAyMFxwbGFpblxm MVxmczIwXGxhbmcxMDMz WQvxI9bdStTdNQFkuDzj NCjna5JvSJIpEKFpGexp jlVwDCk6fsQpXSBwnOri iC54Vdwbuj91LYJzrlSf x8JiZQNxTCN6LMqvKLkw bFxwbGFpblxmMFxmczI0 XHBsYWluXGYxXGZzMjBc bGFuZzEwMzNcaGljaFxm ITwwNuNoUKOtKGjkO9nx ZjFcZnMyMFxwYXJ9 Diagnosis (test code = b0elpJTiGFKspNP7ZCJj 34) YYKby5mef5EdgCZboZRq EEbtuFUtdsVulx37eIV7 mS78WG5oJZFfRrE6JVRg mlG6Fbs1ZUHnMPDfhVDc A374a5yak2euauFhnEL2 fVxwYXJkXHBsYWluXGZz QrUqYAnfzZAig7J8n6cs VNMrhWxoSRYxQn5sDM2u NjMzNiwgcGFydHMgQSBh xpGgLozaR5rQOUT7CyES rIldA8MiEICuoDThLNXJ x2WhlE7nJDBVTMbjKBUc kfwrSGLlHD3cV8OwsJLr nJztJ0RywEFfBnQsx0e2 cVoaQvbyiHL9MMvqhW3m UIW5cuOwQrHpcAXvEVPy l2w1yB2tvQasGPLUtvQc aBGJDHatL41fFMM6FLNx fBqts2ImHCooSABuEUUu dGlmaWVkIChzdWJtaXR0 JBBgC5VqqJinnn5DcAXz jbvha2VmiF4oHmqwIRMc fWCnUJFaLDT9b96sZ6aq CVVgvQS3rG3nYW6rp55c OKFfd7PtnTwoeYwgIHQM yVgubImpWN75G63fFHX8 kUDhTL4ckZUdG2sjj64n DiTofeObwEk1OYNoYTT2 qhd2mZAyUIIchzWOnkPh uPBKHSozM61hIJV1RAFt lPzpr7EjIGvySSVoHGNr dGlmaWVkIChzdWJtaXR0 BJYhC1FndOthyx9SvIOv cvfls6EidM8pVttlBIG6 Disclaimer (test code = b9cglHImBMYzvJGxFwQb 9844) TVZjGXHca4zdPNWlvXAf ZzEwMzNcZnRuYmpcdWMx TZZjIaXkt1thq190gYKr e5akKSQoIvK1vFZrOUSi bOOvN210RRBrJUrkl8ij m1VmGLIutPYnf7B4JYLS fgobiYv2pQqyX67vz6P7 ZdoiG0hrDFTtXGZtH5Yr VU9fZXNiXid3QOK7FUU8 WSIaNXQpZ8TgXI1zLJLe wNVpJAw5d5avvVtnWLCd ROA3w7ylABfsodNhIQ7n uf9fqSc6d2zlbmGrVYZq YAXhwDOTVPGiO8YmxOal Jm2fjXr0xUjtGmrwCEX4 Gpx4LL6mnp44zyo6tJic SKYpzbcaJoR0RYpjALBy ibvzJNu7OOdwWGOjfIY4 FFOmoEUfZ4OtKAJqSY6y lja9TXQ3VZtlICRbPvE2 NDBcaGVhZGVyeTcyMFxm x928ISU1KiEwOC9cT0Er h2P8oP3mcHSeXQYexZOu VyNmZAQgdc7amYGnYHmw b8VxQHO4ufY4gUBbqWDp AZNsFQ85Wcdxq7WdZlun KAC9SVKmusJdj1Iqr9tq AqDthoWiG1nkN1NmYKXv SRWdWRTcXeZmwtQke5Ja m6TdwRYyzGh2c3peECYf GALykWuqa5bwWIB1LLYa Z4O4uZWda9dsNCfdZIGo kBE8lxE5YJGwfPKaY6Yi tR2lDDLbNL9eetj4u4rh HYX5RAfgREUmEfU6dyE1 NDBcaGVhZGVyeTcyMFxm w313ZML3CyPwUSZza7Xu C9AuwLogS25nkKdvR73h HUBsrAfozO9wcPiclB6n ZjBcZnMyNFxxbFxwbGFp ssjkGFecjoG6GSsejmpk JSLiMYluI5vzTeLhCADi zTovYGoxf3DnJEEnKYMv QhmomvM6KBYLq54dEGXt u9SeGBIlqN3awOJfSMsa cbRksSJ7KOqhkcIwEpKx cbKfJBRffQ8jKIWoLW8k OFVoxnHfpf5mslKhMMKp BVWaV3GsxswjoFvwzyZe RHUbgm6soaGdYON9AVLZ XP7MVSUaDZWqp74qRTNu wFwpqX1aaNBrbhFqJHCr f7DkwY9heKAEZNSfS4fu UB2oVCitk4BogZCtzKFg pYV7CHXyd6PyNiVsbuNm dKJmeYGzX4GfnHkiQ7va GLOkOHEbbrCzuYGds1Md BILeaTB2rACaZS8RSjNA m45kWWXgSTPBpcEoJSPn sSlqwLP1xnZ3xS6xBfSE ZiBhcHBsaWNhYmxlLCBj i394bo6dngE4EQTaRZLs fnblq6VwDYZmAULzbA22 AATpJHCjmf9yymaqpPHo jyUiA4Ctvvy8eZ0mRQZt YWluXGYxXGZzMjJcbGFu ZzEwMzNcaGljaFxmMVxk BhRgFAVgJJryY9ckAvTl ZnMyMlxwYXJ9 MD [facility] [id number] 22:58:52 Test Item Value Reference Range Interpretation Comments Final Report (test No growth code = 8488) Path Review - Urine The results have been (test code = 8483) reviewed and electronically signed by Pathologist:JOSÉ ROLDAN MD #[id number] MD [facility] HCV Ab Path [id number] 11:24:45 Test Item Value Reference Range Interpretation Comments HCV Ab Path There is NO Interp (test serologic code = 8923) evidence of ____DEMI KIRK MD - Hepatitis C [id number] b y: DEMI virus antibody. ADWOA BLOUNT MD - [id number] D ate/Time: 12.07.2019 6:24 AM CDT Transcribed Taras e/Time: 12.07.2019 6:24 AM CDTElectronical ly Signed By: DEMI KIRK MD - [id number] on 12.06 6:24 AM Shelly KingHepatitis C Virus [id number] 05:01:00 Test Item Value Reference Range Interpretation Comments HCVAb. (test code Non Reactive Non Reactive Performed at: = 5762) [facility] [id number] [place] [address] [phone] MD [facility] [id number] 22:13:42 Test Item Value Reference Range Interpretation Comments ABORh Confirm. (test code = 882-1) A NEG MD [facility] [id number] 21:12:50 Test Item Value Reference Range Interpretation Comments UA RBC (test code = 1 0- 2 /HPF 7891) UA WBC (test code = 1 0- 2 /HPF 7904) UA Mucous (test TRACE TRACE /HPF code = 7887) UA Bacteria (test NOT SEEN NOT SEEN /HPF code = 7870) UA Squam Epi (test NOT SEEN OCC /HPF code = 7896) AMARILYS (test code = Some reporting parameters AMARILYS) within the Urinalysis test have changed due to the implementation of new instrumentation in the [facility] [place], allowing greater sensitivity of measurement. Urinalysis results reported by the [facility] using existing instrumentation, as well as Urinalysis testing performed manually or by backup methodology at the [facility] will remain relatively unchanged. New reporting parameters and units will now be reported for all campuses. MD KingFractionated [id number] 20:53:38 Test Item Value Reference Range Interpretation Comments Bili Total (test 0.6 mg/dL <=1.2 Testing Per formed at [facility] code = 5096) Lab [facility], [address] [place] [address], [address], [place] [address] Bili Direct (test <0.2 <=0.3 mg/dL Indocyanin e Green (ICG) code = 5094) may cause false ly elevated biliru bin results. Total and direct bilirubi n must not be measured from samples contain ing indocyanine gre en. Testing Perform ed at [facility] Lab [facility], [address] [place] [address], [address], [place] [address] Bili Indirect (test See Note 0-0.9 Unable t o calculate code = 5095) Indirect Biliru bin result due to s ome parameters are outside reportable rang eTesting Performed at [facility] Lab [facility], [address] [place] [address] [address], [address], [place] [address] MD KingGlomerular Filtration [id number] 20:53:37 Test Item Value Reference Range Interpretation Comments eGFR-AA (test 93 >=60 mL/min/1.73 sq. Normal eGFR >= 60 code = 8062) m mL/min/1.73 m2 Note: The eGFR is calcula roger using the CKD-EPI equ ation. The eGFR declines w ith age. eGFR <60 mL/min /1.73 m2 is considered as " decreased". This equation s hould only be used for pat ients 18 and older. Acco rding to the National dney Foundation's dney Disease Outcome Quality Initiative (KDO QI) classification and 2012 Kidney Disease Improving Global Outcomes (KDIGO) Clinical Practi ce Guideline, the stage of CKD should be c ategorized based on estima roger GFR. Stage Descripti on GFR mL/min/1.73 m21 Normal or high GFR >=902 Mildly de creased GFR 60-893a Mildly to moder ately decreased GFR 45-593b Moderately to s everely decreased GFR 30-444 Severely decrea sed GFR 15-295 Kidney failure <15 Testing Performed at [facility] Lab [facility] [employer] [facility], [address], [address], [place] [address] eGFR-JODI (test 80 >=60 mL/min/1.73 sq. Chelsy l eGFR >= 60 code = 8063) m mL/min/1.73 m2 Note: The eGFR is calcula roger using the CKD-EPI equ ation. The eGFR declines w ith age. eGFR <60 mL/min /1.73 m2 is considered as " decreased". This equation s hould only be used for pat ients 18 and older. Acco rding to the National dney Foundation's dney Disease Outcome Quality Initiative (KDO QI) classification and 2012 Kidney Disease Improving Global Outcomes (KDIGO) Clinical Practi ce Guideline, the stage of CKD should be c ategorized based on estima roger GFR. Stage Descripti on GFR mL/min/1.73 m21 Normal or high GFR >=902 Mildly de creased GFR 60-893a Mildly to moder ately decreased GFR 45-593b Moderately to s everely decreased GFR 30-444 Severely decrea sed GFR 15-295 Kidney failure <15 Testing Performed at [facility] Lab [facility] [employer] [facility], [address] [facility], [address], [place] [address] MD AndersonTotal [id number] 20:53:36 Test Item Value Reference Range Interpretation Comments Total Protein (test 7.3 g/dL 6.4-8.3 Testing Performed at [facility] code = 7649) Lab [facility], [address], [address], [place] [address] MD KingCalcium [id number] 20:53:35 Test Item Value Reference Range Interpretation Comments Calcium Lvl (test 9.0 mg/dL 8.4-10.2 Testing Pe rformed at code = 5258) [facility] Lab Ambulat ory Care [facility], [address], [address], [place], [place] [address] MD KingAlkaline Eckecejcwrc2702-17-09 20:53:34 Test Item Value Reference Range Interpretation Comments Alk Phos (test code = 68 U/L 40-129 Testin g Performed at [facility] 4768) [facility], [address], [address], [place] [address] MD KingAlbumin [id number] 20:53:33 Test Item Value Reference Range Interpretation Comments Albumin Lvl (test code 4.1 3.5- 5.2 gm/dL Vicki ting Performed at [facility] = 4763) [facility], [address], [address], [place] [address] MD KingAspartate [id number] 20:53:32 Test Item Value Reference Range Interpretation Comments AST (test code = 25 U/L <=40 Testing Per formed at [facility] 4731) [facility], [address], [address], [place] [address] MD [id number] 20:53:30 Test Item Value Reference Range Interpretation Comments ALT (test code = 22 U/L <=41 Testing Per formed at [facility] 4705) Lab [facility], [address], [address], [place] [address] MD KingElectrolyte [id number] 20:53:29 Test Item Value Reference Range Interpretation Comments Sodium Lvl (test code = 139 136- 145 mEq/L Te sting Performed at [facility] 3574) Lab [facility], [address], [address], [place] [address] Potassium Lvl (test code 3.9 3.5- 5.1 mEq/L T esting Performed at [facility] = 6854) [facility], [address], [address], [place] [address] Chloride (test code = 103 98- 107 mEq/L Testi ng Performed at [facility] 5279) Lab [facility], [facility], [address], [place] [address] CO2 (test code = 5227) 28 22- 29 mEq/L Testi ng Performed at [facility] Lab [facility], [address] [facility], [address], [place] [address] Anion Gap (test code = 8 4- 14 mEq/L Testi ng Performed at [facility] 9325) [facility], [address] [facility], [address], [place] [address] MD King.Serum Sojiprncln9001-04-27 20:53:28 Test Item Value Reference Range Interpretation Comments Creatinine (test code 0.94 mg/dL 0.67-1.17 Testin g Performed at = 5399) [facility] Lab [facility], [address], [address], [place] [address] MD [id number] 20:53:27 Test Item Value Reference Range Interpretation Comments BUN (test code = 21 mg/dL 6-23 Testing Per formed at [facility] 5055) [facility], [address] [place] [address] [address], [address], [place] [address] MD KingGlucose [id number] 20:53:26 Test Item Value Reference Range Interpretation Comments Glucose Level (test code 100 mg/dL 70-99 H Ref erence range is = 5699) valid for fasti ng specimens only. Guidelines established by the [place] Diabet es Association guidelines (Standards of Medical Care in Diabetes 2016. Diabetes Care 2 016; 39: S13-22) are that a fasting gluco se of greater than or equal to 126 mg /dL or a random glu cose greater than or equal to 200 mg /dL with symptoms, that are confirmed b y repeat testing on a different day, meet the criteria fo r diabetes melllenin us. Testing Perform ed at [facility] Lab [facility]ul[facility], [address] [facility], [address], [place] [address] Lab Interpretation (test Abnormal code = 75972-8) MD Fonseca [id number] 20:51:39 Test Item Value Reference Range Interpretation Comments UA Color (test code = 7877) Yellow Yellow UA Appear (test code = 7868) Clear Clear UA Glucose (test code = 7881) NEG NEG mg/dL UA Bili (test code = 7871) NEG NEG UA Ketones (test code = 7884) NEG NEG mg/dL UA Spec Grav (test code = 7894) 1.017 1.002-1.035 UA Blood (test code = 7872) NEG NEG UA pH (test code = 7909) 5.0 4.5-8.0 UA Protein (test code = 7890) NEG NEG mg/dL UA Urobilinogen (test code = 7903) NEG NEG UA Nitrite (test code = 7888) NEG NEG UA Leuk Est (test code = 7886) Trace NEG A Lab Interpretation (test code = Abnormal 28799-6) MD KingCicceuztObkhgiijjuap5939-06-59 20:41:30 Test Item Value Reference Range Interpretation Comments Neutrophil % (test code 54.8 % 42-66 As p art of = 6491) Differential performed at [facility], [address] [place] [address], [address], [place] [address] Lymphocyte % (test code 31.1 % 24-44 = 6194) Monocyte % (test code = 11.5 % 2-7 H 6422) Eosinophil % (test code 1.8 % 1-4 = 5520) Basophil % (test code = 0.6 % 0-1 5068) IGRE % (test code = 0.2 % 0-0.4 IGRE % c ount includes 5958) Metamyelocytes, Myelocytes, and Promyelocytes. As part of Differe ntial performed at [facility], [address] [place] [address], [address], [place] [address] Neutrophil Abs (test 3.44 K/uL 1.7-7.3 code = 6492) Lymphocyte Abs (test 1.95 K/uL 1-4.8 code = 6195) Monocyte Abs (test code 0.72 K/uL 0.08-0.7 H = 6423) Eosinophil Abs (test 0.11 K/uL 0.04-0.4 code = 5521) Basophil Abs (test code 0.04 K/uL 0-0.1 = 5069) IG Abs (test code = 0.01 K/uL 0-0.04 5954) Lab Interpretation Abnormal (test code = 23192-0) MD King.[id number] 20:41:28 Test Item Value Reference Range Interpretation Comments WBC (test code = 8034) 6.3 K/uL 4-11 RBC (test code = 6932) 4.86 4.50- 6.00 M/uL Hgb (test code = 5898) 14.0 14.0- 18.0 gm/dL A s part of CBC or as an individual orderable testi ng performed at [facility] Lab [facility], [address], [place] [address] Hct (test code = 5860) 43.7 % 40-54 As pa rt of CBC or as an individual orderable testi ng performed at [facility] Lab [facility], [address], [place] [address] MCV (test code = 6222) 90 fL 82-98 MCH (test code = 6220) 28.8 pg 27-31 MCHC (test code = 6221) 32.0 31.0- 36.0 gm/dL RDW-SD (test code = 48.1 fL 35.1-46.3 H 6972) RDW-CV (test code = 14.6 % 12-15.5 6971) Platelet count (test 278 K/uL 140-440 As part of CBC or as code = 6832) an individual orderable testi ng performed at [facility] Lab [facility], [address], [address], [place] [address] MPV (test code = 6282) 8.9 fL 4-10.4 INRBC (test code = 0.0 % <=0.0 The INRBC (instrument 5974) NRBC) value ref lects the enumeration of nucleated red b lood cells contained in a 200uL sampleof whole blood analyzed by the instrument. Thi s value maydiffer from the NRBC value reported in a m anual differential,wh ich is based on a 100 cell differential. A s part of CBC testing performed at B Lab [facility] [address] [facility], [address], [place], [place] [address] Lab Interpretation Abnormal (test code = 49328-4) MD KingX-ray Chest 2 [id number] 20:41:07FINDINGS and IMPRESSION: 1. Cardiomediastinal silhouette is unremarkable. 2. No pneumothorax. 3. Minimal basilar atelectasis. 4. No significant effusion, consolidation, or distinct pulmonary nodule. 5. No acute osseous findings. Interface, Radiology Results In - 12/06/2019 3:43 PM CDTFULL RESULT:Examination: XR CHEST 2 VW, 12/06/2019 3:38 PMClinical History: Renal massIndication: Other:, Staging evaluationComparison: NoneTechnique: Posteroanterior, lateral and dual-energy radiographs of the chest.IMPRESSION:FINDINGS and IMPRESSION:1. Cardiomediastinal silhouette is unremarkable.2. No pneumothorax.3. Minimal basilar atelectasis.4. No significant effusion, consolidation, or distinct pulmonary nodule.5. No acute osseous findings.MD KingOSI CT Abdomen and [id number] 18:19:30For comparison only. No interpretation requested.MD KingCT Abd/Pelvic External [id number] 11:41:03This exam was not acquired at a Protestant facility and has not been interpreted by a Protestant Provider. The exam was imported into our imaging system.[facility] [id number] 14:36:00 Test Item Value Reference Range Interpretation Comments Case Report (test code Surgical Pathology = 104) Report Case: [id number] Authorizing Provider: Shorty Serrano MD Collected: 11/04/2019 09:11 AM Ordering Location: [facility] Endoscopy Received: 11/04/2019 11:42 AM Services Pathologist: Alda Van MD Specimens: A) - Polyp, Gastric, via forcep B) - Biopsy, Gastric, via forcep R/O H-pylori DIAGNOSIS (test code = a2unnDNgAKSwo9ykDBTlyP 3220) FuZzEwMzNcZnRuYmpcdWMx FKkydcNfOGnla1GuX6WuIq AwMFxhbnNpXGRlZmxhbmcx MDXdOIL1cjNqFRTlKIdvGR NtBUqdJx4jgUMdrVteDqMo DDGmd3pfsqBDarvthEm2p9 feHYUoXiD8jFZyINxlA6ur xiXizEAtXFGuGAu5eN24JC AyrK4glSPaMPwayjElUDax ceZwotLnUwd8ERWbL8wnHP MuXWBsZ6KpAV8yZLZfYlf9 EVR6PFV9hCvcg5Y4eBNyuH XmyXmaDqMnRrQvGAXKo3Wt WHu8qBzsH4PnUOKfTjV4oE QgUGFyYWdyYXBoIEZvbnQ7 tT35FDnczcT6bFRyt9Gnm6 6cc597eG2ifOTlJUP8EAAi KIVljOFzEUZkGPO0LKBkaM VzZ3u2WtCwzLRlV6K2PiGi kVRzE5B7VoXazVRsH6D2Vk QznJJpAXHanACsDb8igTAe cXPksi4akg01HSP8d5PztR fqPTF9BWJ8CgNrSn5uxEMz ZATtDZ8iYdKkvFHuWGYkgt 21lEglJFrqnrEosG6wWpEs IFAteBZcJXBrLK9lkJBgQH EllE6akojuPNZkBbEmltec FQOujOmfnuXiWm4ooKztKC F5BExdS6ypkP9nWtI2IUbz T0dzsR3gWIi7UUjhwJN3OW AdxS9rGR0hkdnor8maPeRj MN0sayjxs4tuFsEyCZ3voq m6d1uvMjVsLK7udwlrx4hp NzIwXGhlYWRlcnkwXGZvb3 CtlacjGATbo5CrE0AtuYih R83lsJdlO14vEYIldQvogC 5rwRvctQ8zLjElGoLiBSjk bFxwbGFpblxmMFxmczIwXH EnEUwwLVUoEXEbDuMrVL1f C6KOAIHXCuFVV6wNUKXGPX 1IF0hwgLGvYV6hUCAyTM0Q OHASLAPiCOGTZ7BVMCSUCt FHTUVOVCBTVUdHRVNUSVZF TG4LSOYIYlTLStPJUOBJHF EOA0tJXBjxWHVweMqitG5z XnRwJwPqOCEsBFWjAA3WFK lOVEVTVElOQUwgTUVUQVBM KVISQRpxFWuGYVzRH2fWAD 9TRPENKrWKRu6QDNQLMURN VElJRklFRFxwYXIgLSAgIC ZZFfFYVRpEN63ONUBJBHHj VSmFU0LVLXmUR6SwL9LOCQ 2RR51JOGkYGY8FPIAKZMQd E50rI2IABNgJWuYULDHTIu rvP5LHEX0zwHyfqN3fStWf ZnMyMFxwYXJccGFyXHBsYW ckQMHfSWWpMyIwGn5eM8QD APAMMZvnIZ9GNfNAB2ZNWx RPTSwgQklPUFNZXHBhciAt YWKpR4yYU82AOoEEIsYNPH zSIEKLBVZVLfcCAJXuAW4W TklNQUwtTUlMRFxwYXIgLS WcQS4RGLlFTVNUARtETZji TUVUQVBMQVNJQSwgRFlTUE tGK9kRLH5WVYGZTcFUIv6D QSBJREVOVElJRklFRFxwYX BsRAQcLA5VBUyPTQpLE4WU X9WJYqJIRMeISljlQNjIUW BPUkdBTklTTVMgSURFTlRJ RklFRCBPTiBXQVJUSElOIF NUQVJSWSBTVEFJTlxwYXJ9 d8hieOWkPPXgzCNhBUIjGV xhbnNpXGRlZmxhbmcxMDMz ZSL7xpFuZYMeDDyrUKBuNL lcBv1ptKPbxAaoTnMtRSCx s8opqkBFoqovcRk6z0dlMN FkYjP8wNMoEWruP9byhdBo fLFuWDHqNSz0nF69GCMdcM 7koHTaSCrbrkKpAeH7HMvu OWUzYlQ3XFYdwBIdWEOaV2 xyZWQwXGdyZWVuMFxibHVl XVC2dQnoc1H5bYSmuPJdaG qrLxQiBcUuAkYWc1LaMXx1 nNvuS8UkOYCnWzJ0nESjGQ PiVJrqELQhJQAeirX7mI08 NSwcoiG6bRFmm6Oxi92xn1 95fI8dzCNaKBD8YBEnQCTc bGJoCACfLJW1ZHNfcDWgM9 wmAGUqRC3szgecDOvqOAoi MXRuqFB2JGQtfGDgP7CjNT ZiCFgdYVVbvux7PdUmJb8y gPZrzLceWYjlt9kaz4aspF UlHyp9OPXgJcFxXariYTcq o3Oro4kcVYWczs3mJEM5iH AmxUihh8I3oAKdVJQxsGGu PMEfEU6fcQSyNNVqqQ9zre xjXHBnYnJkcmhlYWRccGdi yxTePs6lpXfvOOH6JJfyC7 sjuA2gSgK7GPwwY5kzqH7u ZYm8ZEyyKTCofUN0buT8IM XlwZJvU8AlnR2aFSWkMW9q yqw3y5gjNPK4SCccUZRzKr B9daI5ACTuqLFdFLVkpJvh UQkxy800HTV9DdWkBAAdb5 OnC2PuhPlbU04chHpgQ50b LPYgmEgsvO8qtDwufQ6pBl PkHmCmTDcgjQvvNP7fZITq H4ngxYSjOCEcPAJvZ0jlVv IwnH3tvKcsFDiavpFzVURy Aom0WBIqzXUsOUDlUzi2LK MeABPiA10cmnjsXQC8cR4l u2xwb5FbYCwqPUL1DWMje7 1gJWmbnaI5YYdkCs7nNGFe BEm1RLsaHLX5nR== CPT Code(s) (test code a1thnANtDSEuvKLzNrHvFZ = 3357) TcIMQfg9dzGIWufHBdDqFy MzNcZnRuYmpcdWMxXGRlZm Dqi6qsh119oUIbl0krBICm GxN5eSWlUQPgdBWzR886w8 psh6gkndXqrKW8JDQeHVD1 KYukrpAqlzK6CGtmjXWuPs H0FCntpaIaFPkhjlDfptUa Ygm0HMLhI937RBP0lFrsk3 xwOZR5CCDzKWObIpDhTa6u wHAaQ598ZMEpXTHYUEBupZ l5QIVwgdSjpbBbsAIZr962 S036g0niFOJrkqSgeWpXtp zmz4nsF751GGUieRWmrxSm LrLkXLMteOFdeFB9GYCpZQ 1zzxtbImUmMS9widtiHmLj LQ8cypc0OxIdIA6spmjmVf CqAXavHROttikiVGWvt8Us ksugNU2eC2Voe1C1dG1ibW PeGVZpwVVvSkVzULMtpi9j uUOaVCfdf2QaLTQ9lxE7iO AxfHQmMGBbZB27Osdjn8Mh WqqrMTM6KJQketSmb7Npk5 czFrQjxcTuV8ubD5EgPXTm BMNqYEIdNbYggyXki6Pgb2 PtfLVjoYa2m8qwSSQoVVCv bZlov1whQYO2LHVeL0K5zI Dfr2zxBZrkOCMoxWA1yvpk AOiaSCAdqqE9gqypZTgxMN AvqGU3uzdqUCquDJTqQwY9 hjfxJOcqMATpVYR6YVkcn5 39PLL0BLvlNdxiZJjrYUIj bmNvbnRccGduZGVjXHBsYW luXHBsYWluXGYwXGZzMjRc eYotaMaceD8fLzOmQgGjMX zwCV7yFDQyP0aruJNfPRMn NNXiG9epGzFobF1zgGciVN ulwuVfBTx8JyD9SSppDqbo ODgzMTIgWCAyXHBhcn0= CLINICAL HISTORY (test a9yjcVDzQCKpsPItUmFaQO code = 6546) XuJTSxk5faMYKvyRQgPmWr MzNcZnRuYmpcdWMxXGRlZm Ure6frl771dRSlc5nrUSEf EqX7dGTiTMSjhDEeR918VO ZbURflc9ohs7FlADLirGOw j8R6GWSRbvjnfBu2bVraL0 6lp5V0AeppA3kmUAMoDHyw UNHwNNncvGTlNHV4PLUmKV A9CQcnoeZstbJ4TOoebYEq OpD1FZq4t8sqdVocBLSqXA A5q3ozUErabkObNZ4bqa6u fDp5t3ieamOlVXWlYLBzlK VJSLEyZ7GmrKqiHg8wePb1 xDhnAaicOOG2Ykq6QI6jvw 89ysw2cMnqDDLzfobdVpT5 GMuiEMHvngxwUUu4WOhgQW JnbDcyMFxtYXJncjcyMFxt YXJndDcyMFxtYXJnYjcyMF nhKWCsCUR3DFfwm974NNV3 XLfim9dns9qlrRXcZev5SM CjIaFaGqfxLNlta0Lhl7wj DSRbld2hNUZ3hSBavHfru3 A4hCEyACKctVQcxaKuUSQz IwH9KIujBV1wvg93JOUxVX E5id0gqTYnxAsaxyDwkQVx SLljO7MtFAWio812QBKoJ1 DtCKZxd7S7avCdMyXqBJLd pEK3cmZ3HPQjTBo5yZDadq K8edKkwDUzD7vqpS44DjNz dZCuC8CoxJ43DuPbzBMkA6 CxbE22FeEwnWLvI6RgfF48 BcBczHWhIUCytFPyXy1geQ SqqWYyr7XofKPrLFngD07l p701HARwiyZnX7hycFUfry xwbGFpblxmMFxmczIwXHFs XHBsYWluXGYwXGZzMjBccG syyV7xIlAkLwOyINSEmi3l OTW5otO4EDGkvSUyGREaDK 4dJ81efObgxA4vuCUcV3Yt oIbqHG3zQZXkfPXjDPXvXT 1eC37sbOtyUDPvd8ZchPgj LVVoDQAcERFoSBWph8X5u2 IoYMumF84pt0bjJdArZYLy C6AtbTImJpVzRYiuAWCgnj 0= SPECIMEN SOURCE (test b7rudHXeXDTydNWjWlUfQQ code = 3377) FvQRFjp9arZGFckAHgJcYx MzNcZnRuYmpcdWMxXGRlZm Wke4xmb852pZYvo9obCQDj KnA2jGZfPLButUHhD025MX BcFOwsn1otb5GhZRRceGBs i9S0JPWEltkbxBw9bSbsA1 1ez4O1EbhjI7orWBHnKLcp LRQeHAgjpWUuXER2ZWEwUR E1WFolbxZdzbL9URfmrROd VpO1BLu0w4qnxJscJDCfBQ G8q7ihSGewxuQpJV6nfs1i vUo4y5rpoaZaLORoWRHkqN PRWINrU7NtdZnkEb7mlAf7 kLdvGxexURT8Zkk5OO7dkl 28yoy2wPnfVVQlmucxMhL4 CXvtOHOrvxahUWx6RJfnKM JnbDcyMFxtYXJncjcyMFxt YXJndDcyMFxtYXJnYjcyMF nfWWTpKBT6FKuur529QTR7 VCkch2txy7ahrXOeZmr0ZJ TpHxPtPshhMMdan7Apa8jp EPKquq5eDQB3dPSwnIryj1 V9gJPxHKRqxYBlcqQjXVQl EmE8IHgsDR1xyc76SBXvAF V5oq6uaHFbdOswxvQglJAu GXylZ6GhEEEda376ITHeE6 AaRFVti2U9daKkMhDsXJMn qAO4ghG7VYFgSFb0aXXocj S3ssIolDIjD0pobJ32SaIu xLPnY0KdlV76YfKxuEUgV0 KoyQ93ElDjnTNaA5FxdT70 EiCqxGGkXTLnnISpFj3luZ VdsJRbw0CygIDnJAptB97b y498KNEaedSlG2dcdZPwly xwbGFpblxmMFxmczIwXHFs XHBsYWluXGYwXGZzMjBccG nguN1lRaHnEmOpUFVIEcGT v2q6gFhxV9BbmCGvQymbcj wjNVKtmaFzdGI7ZFPzDMWg c3NxaAcmW1WqbIEvByfefc lhIGZvcmNlcHMgXHBsYWlu XGYxXGZzMjAgcnVsZSBvdX TmzYzvwL1tKfMgYmJdUTOb DU0orNjyi2ZhSVOdhq5= GROSS DESCRIPTION (test l9trkUXmOIQcdDBhXxGkUM code = 3366) XaZBSka2msEVQyvRUgFgXl MzNcZnRuYmpcdWMxXGRlZm Exv0zec680fFRws5mzDHUj VvZ0qRUsOSWqzCQsU603RE JwTLbcj0qcl2CoGFDysGSa h7E0UPVFnvivnCv2aKsbN4 9bg2X1CorlD0nuULQgKKoq FVZzIGbqgSDxGQN3KKHhTD X7UFhyhwYkwgG1ZSegaJZt PzS6JZo3d8sriOkpITDtJF O4o8phXOglzuCbWP1tjn2g fDy2v7vfucItCNYgUTFmpY INVGCmH4XymRexLn9euRz7 iLeuIkhlFMU1Ahv0TX9qbo 94sak8jSetSBGozuxtOcM8 XIuiQLImhpexIDx6LLrxOO JnbDcyMFxtYXJncjcyMFxt YXJndDcyMFxtYXJnYjcyMF kdOMBiMRA0NPobr738CMY6 FYphs9gjm4qddQRtTuo2WH VnSuDqDecyQYohv1Qii4bj LAKcxy6hOTO7zYWhoBjxn8 E6oURhMMOnuULumcKeRJSx VkT5HEkxOS1qgf00YEUgKK H0ba1hvLYmzHjewmHrsLSh FZblH6PmUDXez083AFVqR2 CtBCVlv3W2iyNuIiMuNVXf aZR1kkI9IEUgPWw6bTLnbw Z6piPqrECnR1mukZ81CkQh gSMsK6JyhR56UuXgyLNbH4 KjxJ37RmKxqYJtF9BydW25 SqAivQHqGZNmuEWvXc6kvM YvyNOgg6VjmVNoSBgwT77d l059ZQWxwhSdG7iioXAvkl xwbGFpblxmMFxmczIwXHFs XHBsYWluXGYwXGZzMjBccG vmuL0lXiOkUvTiAKABNeIE zRIyh9NcW2lwSX5bjKAjJY BsYWluXGYxXGZzMjAgcmVj LPz5WJNspB0iAg5toJQepY 9kjUGdATbsVLW7pBPtQCEc ZPZhUTMzJD77J9PumgEgQJ gcISXhNQFdmC3kDI78xZDk ciBhbmQgInBvbHlwLCBnYX N4ssdkAjIwzbLnN45lp0re aDJsr9XoeGuwKSAtix7dtB 6rXJ67W17iGCfdZ616NPBr YANduGMhIPGuv8SmnYjdo2 JyFB9qYCX6amexMhAkNtLt gTXxAoLdrIDnVvHrZ74bME GfBXCuxZQogN0lhbPgcjJc kEXreMA3QVUhIX93gUXetV dhXg0izS11eF1bJBMqgUAc NDWcn56sdC3lHVJfKHTdHD R9NEDLJR3bRVYazuktZWYo To0lCSqrOCJjXKOhbZIfNT nrQHYhA1YrboRqXBblFQPl do5ibAwbVKptChWeNKPsk1 s6eRO8zTYjrQJ8nXKwqXwp VA9ynNSkWOXvJ6Lte8ctad IwrX0mVZRtAC7mAZJJlU4s n4mbC5CxhWXiRkBmHQ0cGX UrwwWsc7VcNA5lTB3yYFF4 RB9hrQsjhoRezEOpn1TaSR CnirUjWADmpIteM1Uxm5As bKsqm3RiUA3xXTL8dvblLm AwLjIgeCAwLjIgeCAwLjEg M30hTKUiAARlyICwzE4tmz UxhoEjuPDyeEV7TBFnKQ05 hENyoSaxAn2tsE76fZ7cLY NfwFBqRPZgx54drD3kWAOb ASTdSEO7LHOHVY7mMWnJP6 BsXHBhcn0= MICROSCOPIC DESCRIPTION x9tbaTBaSMZbgICsNmTrXR (test code = 3371) TiQNFtk3bnFRDlnNCuRfGa MzNcZnRuYmpcdWMxXGRlZm Vgn9trl988gHVnl3rwEUOj GtX1kJXpEOMayGKgW895i0 zbn3usydTztIQ8LAQsLXH6 XKlifjLegqW9OMgagWGnJo E1OLgpxmQsLPmflsTdnhLt Sgu3AMZcQ053JAM9uYzmm2 keFIO7FHApSMRvNgEnOr6f pBSeH020VLTqYBJJJJTtqR b0BRSpofDqnaVjjGLTp402 A026s7yfNQIagsTxkCnLez ojs4wqK046ZUGsmDMtygRs YkYlIQHqtJXcfNG8ZSBqCA 6utcnrKuHpNA2mrtcxCvEt IR6wnzg5DiToPY5bsnywAh RePIwgASNundzhGQDmi1Rf rrfmXL7nK2Evc3W3pS3yeZ MwCSKglQTkPmIzBOUohv4b bOOpIFcly8GqALU7xlE0rO MslFOgRBImTC73Pdqlf6Oq SzngKBY1KPVnmyYfb7Lvr4 ajHwDbxhCjZ9rvI0KdWCSe KOKoDMJdYfXjrtXga4Cnp4 NlvZJumDo9g5aqCYXdNLZa pSxim0hrEKF6IKAuO7Y5nT Gxx2jmWVjdVHBboGS4gklo DQrwPAEerfR5abwdJMjsWI ProCR6jaipNRfwIMFcEjH0 rixeGUxeKUDrLLT9RXkxn1 55NAO7HZctLrhhSJziWDNo bmNvbnRccGduZGVjXHBsYW luXHBsYWluXGYwXGZzMjRc bXlhyTmuiY8cKeEmLbYbVZ rvLP6lAREtA5dhjRAzUYTh QDOwW2dzYoGccJ4jwGhgNS kqjsDkSESyeoMnro4fXO0c cGFyfQ== SPECIAL STUDIES (test w3ybsCGmBGAmrTBgBuMhLP code = 5756) HdSPCsz9zbIWRggKRsVcRj MzNcZnRuYmpcdWMxXGRlZm Wjs3lzk197zZAwu0mkTSMq XlT8hDWhBSCyqXKzP625KY EpERhnc8hfq5ZhPJSniYWh x2L4SKKHPMjaAwOxT355DN CjMAjlg5jzq8RtGJVwxAOk z6D2EVZWbruvsIw5pXxqQ5 7vg2U3QjpuD7ivLKXxUPIk K7ZmAP3uQMNtQzg5ZKO0TP Q5JUFoWQJqK3MkMP2wJNRh hFQtEQz6h3psvNlsVFLkAE O5y1bmAQqdpbZ2LM8fas0q cHz1y1sehjDlIBPtVGLkpT KNVSMqG6SjuQrxZy7oxSx0 l0wcSrbojcK1pRDmYdJnGw MyMFxsaTBccmkwIENvUGF0 kTJZWMc3O821e3elGJGqco ZpgHdUskmpb7vnX216TSBb cGVydzEyMjQwXHBhcGVyaD O5CJYnBC8xxtogZyJkDV8l ksglTcRhZJ8hnux0PhDbON 1hcmdiNzIwXGhlYWRlcnkw VBPrj5HdfvkxIB6aX0Wby0 Q5jF2vxUVmISWdxJIwDuGb ZEZqwo9riBIkCQmzCZM8WY GokzAln1Zow4gqCiNgnuCn X3bvT8FrQWJgTTGiCVJgZt ZxujWmn6Ids5TdeGNaiVd9 j3xkNKOwWFNdiTfpy4fyRQ R8IPGrT1A2eHIzl4gkBUwp VQDhgUD5xfcyRHvmRVPxch J0yziaCTgrPOWtaXX3jkal CGeeRIPrBbO0cyskWYndDE SwDMW4BBtjp110VWD8DNrk YmtwYWdlXHBnbmNvbnRccG duZGVjXHBsYWluXHBsYWlu XGYwXGZzMjRccWxccGxhaW 6yOoSbImSlLoqqIB5dYQDd X1trtCMcSNRjWKDdJ2vnEe UcdY5usTdjUTtoWrLvLkLc LbSGyITadI94IFFvjhO5AE Bqf95wc7McwNpgrmSiWCBa FLqxF5r8EYWuJCWfOOT0x1 Yoh1EocD2rgT3qwYawkV7u pXWpvLA5hjxqz5Tne1BqY0 lhbCBzdGFpbnMuXHBsYWlu XGYxXGZzMjJcbGFuZzEwMz NcaGljaFxmMVxkYmNoXGYx JWieK9wjZtKjH0PiDCVnLu NopKKxS0cktINbUAToplbt bGFpblxmMVxmczIyXGxhbm ijTLMvGPtbC0hfFpLzLJAz zWbuSAqov9MiOBDoIADfZa wsewKoDTWyvuDyk0rhV5nu TMVtTGB6HU9qacYpMqSrDD 8cqB76c5Cue28dz36zhR3d hLUemwOkL94gpBZprGYcz0 ChKVXukkCyzXM3ELXqIJqk mclwz4x1bKH7wQQhmTEqgK A9zRRrmQFwYKWPrNVgRUAg v543sb1sAJWviOQvxuLamX 7zAYkqfwuavVGoLI4jOCJk HXDsQIZrCQ82iwMhWL1ejQ Lhh8wshlUhmFHnc4EwtCG7 OJPuoNUsqlmoKp8sNW48BK GtPFvdqF5ulEPnhxQcFV4m SY8uR7J8hTNrDIShhcUdd6 grAVenFX7uRIPbhYlqCpjc TDFlRBCubjMvdBF2XKNulZ nrvD5bSoSiPeJtOineOC2c LATtF7vedKMkGFKcQXFtV9 olJhMbhO2sbSfaWSylIaMi ZnMyMlxsdHJjaFxwYXJccG wjjL7xKlGhIbRxPephVX3p UWUcR4xqfHHxNUVrIXSdN7 woWfZalN3lfFctYNlbPwVk ZnMyMiAgXHBsYWluXGYxXG ZzMjJcbGFuZzEwMzNcaGlj aFxmMVxkYmNoXGYxXGxvY2 wyVwHlF8FiSMRtVrMgwJKf S7ykdJEwSCJqHHkhVRNoNZ ZzMjJcbGFuZzEwMzNcaGlj aFxmMVxkYmNoXGYxXGxvY2 wzQgIaB0PlVVSjVkXgGG9n eO4ozZhluN1rfROvmJA8xd pjrTHirL9bA6GeYOHdx9Mm rsdfc3LkDLVrgxJlwj8bEO ThbNCBRYghx4HvZ7AlXDr9 h2QntZezaC6zDaQvDwKmGx sqSP1tHMIcW1ndlIUdLKYx RGFmU3xjWfNnbB2quAyyAX tcQcVbGeBeOcy1XHVdTeRh JzkyXHBsYWluXGYxXGZzMj JcbGFuZzEwMzNcaGljaFxm SZjfLqGpLKSjXJlkL2xeYk HwW9ZjPESwLdJlikYTAKYb V5ViGHCryuLzsrcsQXE9sJ 9wr7s4BYzcCz3dBVMpignq u4lxnzDwbFKtm8GbZPFaxt Bsv4DrQVOaazUilXGpNBKh ggPdps3fkoSrNZOuPSVsG6 PxulaliQobjtU1LCRgFJEt lTQgjQlrTLCuFBf7ACmvbo Yhy5UuGtUxpzOwvOZtxaQx OS8jVUNolBBcncDdEHI5QW ZqXFGYJiBoEOMji3BbQA1o TWEvjWruBROhoQ7nu1MqYF Auj91tHSPyHEOKZAHhuVRh IGRldGVybWluZWQgdGhhdC QfsVZbYDGzZPQjZL8oPCUm txJopXAcx4UczZScprCno2 JrynKjCLHhNFR1EoNFjOBj pSJygURdfeW8g5HdKKJeyx LdwNbjgNRmmFEpmOWra5Yt ch7qLDTtj2sejAdzCJ8lqU BiZSByZWdhcmRlZCBhcyBp xwEjz0CrC8C4fA0sAIzsw6 FrKx4sMZXtw2FwpjMhJfNX vOniOSyeSu9vYVSwddkvsP JvL9UwnIbvaDOnPYNyZVIb IHRoZSBDbGluaWNhbCBMYW NsdoL8f8M0JMvjnGPgbtOe PD86YPWbFO7nsDEncZGgc2 LiDOw4WZYzP1wIXY87JVkk YXMgcXVhbGlmaWVkIHRvIH GnjuTvdw3ufHydnXWds16p bZD8sAT8DYClrD8aL9TpHR deSr3eEFOmgigohDZekUwi Lu9lkKkigS8zMnTlTsOlYs dlOH0rSCDiM1cnkCJnFFXt ATOeE6dkGqPetW8wpTetEk xmczIyXHBhclxwYXJkXHBs YWluXGYwXGZzMjRccGxhaW 9xKhZnOpXkTFnkFOK5 Gross assessment was [facility] performed at ([facility], = [phone]) Department of Pathology, [address] [place] [id number], Technical component was [facility] performed at ([facility], = 2777) Department of Pathology, [address] [place] [id number], Professional component [facility] was performed at ([facility], code = 2779) Department of Pathology, [address] [place] [address], [facility]ake[facility] [id number] 14:36:00Surgical Pathology Report Case: [id number] Authorizing Provider: Shorty Serrano MD Collected: 11/04/2019 09:11 AM Ordering Location: [facility] Endoscopy Received: 11/04/2019 11:42 AM Services Pathologist: Alda Van MD Specimens: A) - Polyp, Gastric, via forcep B) -Biopsy, Gastric, via forcep R/O H-pylori A. GASTRIC POLYP BIOPSY- POLYPOID MUCOSAL FRAGMENT SUGGESTIVE OF FUNDIC GLAND POLYP- NO INTESTINAL METAPLASIA, DYSPLASIA OR CARCINOMA IDENTIIFIED- NO HELICOBACTER PYLORI LIKE ORGANISMS IDENTIFIED ON WARTHIN STARRYSTAINB. STOMACH, ANTRUM/RANDOM, BIOPSY- CHRONIC INACTIVE GASTRITIS, MINIMAL-MILD- NO INTESTINAL METAPLASIA, DYSPLASIA OR CARCINOMA IDENTIIFIED- NO HELICOBACTER PYLORI LIKE ORGANISMS IDENTIFIED ONWARTHIN STARRY STAIN Signing Pathologist Direct Phone Line: [phone] signed by Alda Van MD on 11/08/2019 at 2:36 [id number] X 2, [id number] X 2Procedure: upper endoscopy, polypectomy and upper endoscopy, BiopsyPre and postop diagnosis: Epigastric painA. Polyp, gastric, via forceps; B. Biopsy, gastric, via forceps rule out H. pyloriA. The specimen is received in formalin labeled with the patient's name, accession number and "polyp, gastric" and consists of two godinez-pink mucosal-covered pieces of tissue measuring 0.2 x 0.2 x 0.1 cm. The specimen is submitted entirely following filtration in a cassette A1. B. The specimen is received in formalin labeled with the patient's name, accession number and "Biopsy gastric" and consists of one godinez-pink mucosal- covered piece of tissue measuring 0.2 x 0.2 x 0.1 cm. The specimen is submitted entirely following filtration in a cassette B1. HS/plPerformed.The interpretation of this case included the use of immunohistochemistry or special stains.Control Slides Examined: In-house known positive controls were evaluated along with the testtissue. These control slides run alongside of the patients sample show appropriate staining. Internal positive and negative controls when available are evaluated Immunohistochemistry technical testingwas performed at [facility], Pathology Laboratory where it was developed and its performance characteristics were determined. It has not been cleared or approved by the U.S. Food and Drug Administration. The FDA has determined that such clearance or approval is not necessary. Thetest is used for clinical purposes. It should not be regarded as investigational or for research. This laboratory is certified under the Clinical Laboratory Improvement Amendments of 1988 (CLIA-88) as qualified to perform high complexity clinical laboratory testing.[facility], Department of Pathology, [address] [place] [address], [facility]ology, [address] [place] [id number], [facility], Department of Pathology, [address] [place] [address], [id number] 11:18:00 Test Item Value Reference Range Interpretation Comments POC-Creatinine (test 1.1 mg/dL 0.6-1.3 : TESTE D AT [place] [address] code = 1859) [facility], [address]: Director Of Occupational Health/Techni keaton ID = [id number] for Laura Guillory POC-EGFR (test code 66 mL/min/1.73M2 = 1860) [facility]-[id number] 11:18:00 Test Item Value Reference Range Interpretation Comments POC-CREATININE 1.1 mg/dL 0.6-1.3 : TESTED AT [facility] (test [address] code = 1859) [place], [address]: Director Of Occupational Health/Techni keaton ID = [id number] for Laura Plunkett POC-EGFR ([place]) 66 mL/min/1.73M2 (test code = 1860) CT, [id number] 10:50:00Addendum BeginsREPORT STATUS:A Addendum:The urinary bladder and prostate are unremarkable. End of addendum. Signed: Anayeli Rucker MDReport Verified Date/Time: 11/05/2019 10:50:11 Reading Location: [address] Radiology Reading RoomAddendum EndsFINAL REPORT CLINICAL HISTORY: Ventral hernia TECHNIQUE: CT of the abdomen and pelvis is performed with intravenous contrast administration. Enteric contrast was administered as well This exam was perform ed according to our departmental dose-optimization program which includes automated exposure control, adjustment of the mA and/or kV according to patient size and/or use of iterative reconstruction technique. Study is dated 11/05/2019 COMPARISON: None FINDINGS: Lung bases are clear. There is fatty infiltration of the liver. Two hypodensities are seen in the right lobe of the liver, one in the inferiortip of the right lobe measuring approximately 7 mm and the second near the superior aspect of the right lobe measuring approximately 1.5 cm. Both are compatible with cysts. Gallbladder has been removed. No biliary dilatation is noted. Pancreas and adrenals are unremarkable. There is a heterogeneously enhancing mass in the medial lower pole of the right kidney measuring approximately 4.7 x 3.5 x 3.6 cm. Multiple parapelvic cysts are seen in the left kidney. There are adjacent to one another and itis difficult to determine an accurate size however the largest appears to measure approximately 4.6 x 5.0 cm. No hydronephrosis or renal calculus visualized. The patient is status post gastric bypass. Bowel is otherwise unremarkable. The appendix is within normal limits. No free fluid or air. No lymphadenopathy. Vascular structures are grossly unremarkable. There is a total left hip arthroplasty in place. Bones are osteopenic. Degenerative changes are seen in the spine. Minimal scoliosis of the lumbar spine. IMPRESSION: 1. 4.7 x 3.5 x 3.6 cm heterogeneous right renal mass as described in detail above. The mass should be considered renal cell carcinoma until proven otherwise and consultation with urology is recommended.2. Multiple left renal parapelvic cysts.3. Hepatic steatosis and two hepatic cysts. Signed: Anayeli Rucker MDReport Verified Date/Time: 11/05/2019 10:16:00 Reading Location: [address] Radiology Reading Room CT abdomen/pelvis with IV contrast 2019-11-05 10:16:00Interface, External Ris In - 11/05/2019 10:52 AM CDTAddendum BeginsREPORT STATUS:A Addendum:The urinary bladder and prostate are unremarkable. End of addendum. Signed: Anayeli Rucker MDReport Verified Date/Time: 11/05/2019 10:50:11 Reading Location: [address] Radiology Reading RoomAddendum EndsFINAL REPORT CLINICAL HISTORY: Ventral hernia TECHNIQUE: CT of the abdomen and pelvis is performed with intravenous contrast administration. Enteric contrast was administered as well This exam was performed according to our departmental dose-optimization program which includes automated exposure control, adjustment of the mA and/or kV according to patient size and/or use of iterative reconstruction technique. Study is dated 11/05/2019 COMPARISON: NoneFINDINGS: Lung bases are clear. There is fatty infiltration of the liver. Two hypodensities are seenin the right lobe of the liver, one in the inferior tip of the right lobe measuring approximately 7 mm and the second near the superior aspect of the right lobe measuring approximately 1.5 cm. Both arecompatible with cysts. Gallbladder has been removed. No biliary dilatation is noted. Pancreas and adrenals are unremarkable. There is a heterogeneously enhancing mass in the medial lower pole of theright kidney measuring approximately 4.7 x 3.5 x 3.6 cm. Multiple parapelvic cysts are seen in the left kidney. There are adjacent to one another and it is difficult to determine an accurate size however the largest appears to measure approximately 4.6 x 5.0 cm. No hydronephrosis or renal calculus visu alized. The patient is status post gastric bypass. Bowel is otherwise unremarkable. The appendix is within normal limits. No free fluid or air. No lymphadenopathy. Vascular structures are grossly unremarkable. There is a total left hip arthroplasty in place. Bones are osteopenic. Degenerative changes are seen in the spine. Minimal scoliosis of the lumbar spine. IMPRESSION: 1. 4.7 x 3.5 x 3.6 cm heterogeneous right renal mass as described in detail above. The mass should be considered renal cell carcinoma until proven otherwise and consultation with urology is recommended.2. Multiple left renal parapelvic cysts.3. Hepatic steatosis and two hepatic cysts. Signed: Anayeli Ruckereport Verified Date/Time: 11/05/2019 10:16:00 Reading Location: [address] Radiology Reading Room [facility]2019-11-02 09:00:00 Test Item Value Reference Range Interpretation Comments SARS-COV2/RT-PCR (test code = Negative Not Detected, Negative 94387-2) SARS-COV-2 PERFORMING LAB [facility] (test code = 67099-6) [facility]2019-11-02 09:00:00 Test Item Value Reference Range Interpretation Comments SARS-COV2/RT-PCR (test code = Negative Not Detected, Negative [id number]) SARS-COV-2 PERFORMING LAB [facility] (test code = 1149180)
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
[2019-12-21 20:42] VITALS: BP 161/86; TEMP 98.4; O2SAT 98
== END 2019-12-21 20:25 | disposition home or self-care (01) ==
LOC: ER 18:23
DX: S16.1XXA Strain of muscle, fascia and tendon at neck level, initial encounter (principal); S39.012A Strain of muscle, fascia and tendon of lower back, initial encounter; V49.49XA Driver injured in collision with other motor vehicles in traffic accident, initial encounter; I10 Essential (primary) hypertension; Z88.5 Allergy status to narcotic agent
CPT/HCPCS: 72125; 99283

== ENCOUNTER 2020-05-24 06:11 | Day surgery (SDC) | payer OTHER ==
--- OUTSIDE RECORDS SUMMARY | 2020-05-24 06:19 | XMS REPORT | Clinical Summary ---
:1945 Author Organization [facility] Address [address] [place] [id number] Care Team Providers Name Role Phone Jaiden [...] CAPSULE BY capsule MOUTH EVERY DAY tamsulosin TAKE 1 90 capsule 0 03/24/2019 [...] Travel 07/17/2019 Refill Urology Hong Wilkerson MD after 05/24/2019 Surgical History Surgery Date Site/Laterality Comments KNEE SURGERY HIP SURGERY Medical History Medical History Date Comments Elevated PSA Erectile dysfunction BPH (benign prostatic hypertrophy) Hypertension Family History Medical History Relation Name Comments Heart disease Father Relation Name Status Comments Father Mother Social History Tobacco Use Types Packs/Day Years Used Date Never Smoker Smokeless Tobacco: Never Used Alcohol Use Drinks/Week oz/Week Comments No Sex Assigned at Date Recorded Not on file Last Filed Vital Signs Not on file Plan of Treatment Health Maintenance Due Date Last Done Comments COVID-19 VACCINE (#1) 1961 COLONOSCOPY SCREENING 12/31/1995 SHINGLES VACCINES (#1) 12/31/1995 65+ PNEUMOCOCCAL VACCINE (1 of 1 - PPSV23) 2010 INFLUENZA VACCINE 12/25/2019 Procedures Procedure Name Priority Date/Time Associated Diagnosis Comme nts CT ABD/PELVIC Routine 11/05/2019 9:16 AM Results for this EXTERNAL STUDY CDT procedure are in the results section. after 05/24/[address] Abd/Pelvic External Study (11/05/2019 9:16 AM CDT) Specimen Narrative Performed At This exam was not acquired at a Method t facility and has not been [facility] interpreted by a [facility] Provider. T he exam was imported into our imaging system. Performing Organization Address City/State/ZIP Code Phon e Number [facility] [address] [place] [address] after 05/24/2019 (Work) [id number] Advance Directives For more information, please contact: [phone] Type Date Recorded Patient Undertaker Assistant Explanati on Advance Directives, Living Will and Medical Power of Electricians Top Helper
--- OUTSIDE RECORDS SUMMARY | 2020-05-24 06:19 | XMS REPORT | Clinical Summary ---
:[address] [facility] Address [address] [place] [address] Care Team Providers Name Role Phone Shelly [...] Head MD Periumbilicpark a bdominal pain after 05/24/2019 Social History Tobacco Use Types Packs/Day Years Used Date Never Smoker Smokeless Tobacco: Never Used Alcohol Use Drinks/Week oz/Week Comments No Sex Assigned at Date Recorded Not on file Last Filed Vital Signs Vital Sign Reading Time Taken Comments Blood Pressure 119/61 11/04/2019 9:55 AM CDT Pulse 58 11/04/2019 9:55 AM CDT Temperature 36.8 C (98.2 F) 11/04/2019 9:25 AM CDT Respiratory Rate 16 11/04/2019 9:55 AM CDT Oxygen Saturation 99% 11/04/2019 9:55 AM CDT Inhaled Oxygen Concentration - - Weight 116.8 kg (257 lb 6.4 oz) 10/28/2019 9:03 AM CDT Height 179.1 cm (5' 10.5") 10/28/2019 9:03 AM CDT Body Mass Index 36.41 10/28/2019 9:03 AM CDT Plan of Treatment Health Maintenance Due Date Last Done Comments COLON CANCER SCREENING COLONOSCOPY 1945 PNEUMOCOCCAL 65+ YRS (1 of 1 - [id number]) 2010 Medicare IPPE (WELCOME TO MEDICARE) 05/26/2019 INFLUENZA VACCINE (#1) 2020 Procedures Procedure Name Priority Date/Time Associated Comments [...] i n the results section. UPPER 11/04/2019 8:53 Epigastric pain ENDOSCOPY,BIOPSY AM CDT UPPER 11/04/2019 8:53 Epigastric pain ENDOSCOPY,POLYPECTO AM CDT MY SARS-COV2/RT-PCR Routine 11/01/2019 9:03 Results for this ([facility] REF LABS) AM CDT procedure are in the results section. after 05/24/[address] abdomen/pelvis with IV contrast (11/05/2019 9:22 AM CDT) Specimen Narrative Performed At Addendum Begins GE RIS REPORT STATUS:A Addendum: The urinary bladder and prostate are unr emarkable. End of addendum. Signed: Anayeli Manzano MD Report Verified Date/Time: 11/05/2019 10:50:11 Reading Location: [address] Radiolog y Reading Room Addendum Ends FINAL REPORT CLINICAL HISTORY: Ventral hernia TECHNIQUE: CT of the abdomen and pelvi s is performed with intravenous contrast administration. Ent [...] Anayeli Manzano MD Report Verified Date/Time: 11/05/2019 10:16:00 Reading Location: [address] Radiolog y Reading Room Procedure Note Interface, External Ris In - 11/05/2019 10:52 AM CDT Addendum Begins REPORT STATUS:A Addendum: The urinary bladder and prostate are unr emarkable. End of addendum. Signed: Anayeli Manzano MD Report Verified Date/Time: 11/05/2019 1 0:50:11 Reading Location: [address] Radiolog y Reading Room Addendum Ends [...] Verified Date/Time: 11/05/2019 1 0:16:00 Reading Location: [address] Radiolog y Reading Room Performing Organization Address City/State/Zipcode Phone Number RIS POC-Creatinine (11/05/2019 9:16 AM CDT) POC-Creatinine 1.1Comment: : 0.6 - 1.3 mg/dL [facility] TESTED AT [address], [address]: Multimedia Designer/Technici an ID = [id number] for Laura Plunkett POC-EGFR 66 mL/min/1.73M2 [facility] Specimen Blood Performing Organization Address [facility] Phone Number [address] [address] CENTER REPORT OF PROCEDURE - ENDOSCOPY URL (11/04/2019 9:25 AM CDT) Narrative Performed At This result has an attachment that is no t available. Tissue Exam (11/04/2019 9:11 AM CDT) Case Report Surgical Pathology Report Case: [id number] [facility] Authorizing Provider: Shorty Silver MD Collected: 11/04/2019 09:11 AM [facility] Ordering Location: [facility] Endoscopy Received: 11/04/2019 11:42 AM MEDICAL CENTER Services Pathologist: Alda Van MD Specimens: A) - Polyp, Ga stric, via forcep B) - Biop sy, Gastric, via forcep R/O H-pylori DIAGNOSIS A. GASTRIC POLYP BIOPSY [facility] Keely ctronically - POLYPOID MUCOSAL FRAGMENT SUGGESTIVE OF FUNDIC GL AND POLYP [facility] signed by Carlota, - NO INTESTINAL METAPLASIA, DYSPLASIA OR CARC [facility] MD Alda on - NO HELICOBACTER PYLORI LIKE ORGANISMS IDENT IFIED ON WARTHIN STARRY STAIN 11/08/2019 at 2:36 PM B. STOMACH, ANTRUM/RANDOM, BIOPSY - CHRONIC INACTIVE GASTRITIS, MINIMAL-MILD - NO INTESTINAL METAPLASIA, DYSPLASIA OR CARCINOMA I DENTIIFIED - NO HELICOBACTER PYLORI LIKE ORGANISMS IDENTIFIED O N WARTHIN STARRY STAIN Signing Pathologist Direct Phone Line: CPT Code(s) 53668 X 2, 33610 X 2 [facility] CLINICAL HISTORY Procedure: upper endoscopy, polypectomy and upper endoscopy, Biopsy [facility] Pre and postop diagnosis: Epigastric pain [facility] SPECIMEN SOURCE A. Polyp, gastric, via [facility] forceps; B. Biopsy, [facility] gastric, via forceps rule [facility] out H. pylori GROSS DESCRIPTION A. The specimen is received in formalin labeled with the patient's name, accession number and "polyp, gastric" and consists of two godinez- pink mucosal-covered pieces of tissue measuring 0.2 x 0.2 x 0.1 cm. [facility] The specimen is submitted entirely following fi ltration in a cassette A1. [facility] B. The specimen is received in formalin labeled with the patient's name, accession number and "Biopsy gastric" and consists of one godinez-pink mucosal- covered piece of tissue measuring 0.2 x 0.2 x 0.1 cm. The specimen is submitted en tirely following filtration in a cassette B1. HS/pl MICROSCOPIC Performed. [facility] SPECIAL STUDIES The interpretation of this c ase included the use of immunohistochemistry or special stains. [facility] Control Slides Examined: In -house known positive controls were evaluated along with the test tissue. These control slides run alongside of the patients sample show appropriate staining. [facility] ashtyn and negative controls when available are evaluated Immunohistochemistry technic al testing was performed at [facility], Pathology Laboratory where it was developed and its performance characteristics were determined. It has not be en cleared or approved by [facility] [place].S. Food and Drug Administration. The FDA has determined that such clearance or approval is not necessary. The test is used for clinical purposes. It should not be regarde d as investigational or for research. This laboratory is certified under the Clinical Laboratory Improvement Amendments of 1988 (CLIA-88) as qualified to perform high complexity clinical laboratory testing. Gross assessment [facility] was performed at [facility] Pathology, [address] [place] [id number], Technical [facility]'S component was [facility] performed at Pathology, [address] [place] [address], Professional [facility]'S component was [facility] performed at [facility], [address] [place] [id number], Specimen Tissue - Polyp, Gastric Tissue specimen (specimen) - Gastric bio psy sample (specimen) Performing Organization Address City/[facility]/Zipcode Phone Number [address] [address] [place] SARS-CoV2/RT-PCR (Asymptomatic ONLY) (11/01/2019 9:03 AM CDT) SARS-COV2/RT-PCR Negative Not Detected, [facility] Negative NON-INTERFACED REFERENCE LABS SARS-COV-2 CPL [facility] PERFORMING LAB NON-INTERFACED REFERENCE LABS Specimen Other - Nasopharyngeal wall structure (b carmen structure) Performing Organization Address City/[facility]/Zipcode Phone Number [facility] NON-INTERFACED REFERENCE LABS after 05/24/2019 Insurance Payer Benefit Plan / Subscriber ID Effective Dates Phone Addre ss Type Group AETNA - AETNA MEDICARE [id number] 2019-Presen [phone] MEDICARE [id number] HMO POS PPO t [id number] [place] [address]
--- OUTSIDE RECORDS SUMMARY | 2020-05-24 06:21 | XMS REPORT | Continuity of Care Document ---
:[address] [facility] t Address [address] [place] [place] [address] Care Team Providers Name Role Phone JUDI Primary Care Physician Unavailable SYSTEM, NOT IN Attending Clinician Unavailable DICK Attending Clinician Unavailable Ed PALENCIA Attending Clinician Unavailable JUDI Attending Clinician Unavailable Judi ABREU Attending Clinician Reno LORENZ Attending Clinician Rhea ABREU Attending Clinician Catherine Moran MD Attending Clinician Dick NGUYEN Attending Clinician INGRID Attending Clinician Unavailable Ingrid ABREU Attending Clinician Unavailable Cristina FONTENOT Attending Clinician Unavailable Cristina Fontenot MD Attending Clinician BECK ART Attending Clinician Unavailable Beck Blair Attending Clinician Unavailable Monica GARCIA, A Attending Clinician Unavailable Ed Palencia MD Attending Clinician Carlota ABREU Attending Clinician Unavailable Catherine Pastor MD Attending Clinician Tevin GARCIA, Wally Attending Clinician Unavailable Sonido Serrano MD Attending Clinician Sonido SERRANO Attending Clinician Unavailable Manuela Leahy MD Attending Clinician JUDI Admitting Clinician Unavailable Sonido SERRANO Admitting Clinician Unavailable Payers Payer Name Policy Type Policy Effective Date Expiration Date Sour ce Number AETNA MEDICARE PPO [id number] 2019 00:00:00 AETNA MEDICAREAETNA [id number] 2019 [place] MED[place] H[place]/PPO 00:00:00 Methodsunitha perez [id number] -PresentO AETNA - MEDICARE [id number] [address] [facility] - MGD CAREAETNA 00:00:[address] MEDICARE HMO POS [id number] [id number] [place] [address] Problems Condition Condition Condition Status Onset Resolution Last Treating Co mments Source Name Details Category Date Date Treatment Clinician Date Renal cell Renal cell Disease Active 2019-05 M D carcinoma carcinoma 0 Bam rso 00:00: n 00 Recovery Recovery Disease Active MD following following 12-23 Bam rso surgery surgery 00:00: n 00 Renal mass Renal mass Disease Active M D 12-04 Anderso 00:00: n 00 Steatosis Steatosis Disease Active MD of liver of liver 11-04 True o 00:00: n 00 Gastric Gastric Disease Active Overview: reflux reflux 05-26 Stage 1 Anderso 00:00: of 5 n 00 Benign Benign Disease Active prostatic prostatic 05-26 Bam rso hyperplasi hyperplasi 00:00: n a a 00 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 05-26 Anderso continuous continuous 00:00: n positive positive 00 airway airway pressure pressure ventilatio ventilatio n n Hypertensi Hypertensi Disease Active 0 M D on on 05-26 Anderso 00:00: n 00 Arthritis Arthritis Disease Active Overview: mild Anderso n Allergies, Adverse Reactions, Alerts Allergy Allergy Status Severity Reaction(s) Onset Inactive Treating Comm ents Source Name Type Date Date Clinician Adhesive Propensi Active 2015-05 [place] Tape-Gaby ty to 06-15 Methodi icones adverse 00:00: st reaction 00 s to drug Codeine Propensi Active 2015-05 Elliott ty to 06-15 Methodi adverse 00:00: st reaction 00 s to drug Hydrocod Propensi Active 2015-05 [place] one ty to 06-15 Methodi adverse 00:00: st reaction 00 s to drug Codeine Drug Active Nausea [facility] 2014[facility] Family History Family Member Diagnosis Comments Start Date Stop Date Source Natural father Heart disease [facility] Social History Social Habit Start Date Stop Date Quantity Comments Source Sex Assigned At M MD [place] Tobacco use and 2020-03-18 2020-03-18 Never used MD [place] exposure 00:00:00 00:00:00 Alcohol intake 2020-03-18 2020-03-18 Ex-drinker MD Nico villatoro 00:00:00 00:00:00 (finding) Smoking Status Start Date Stop Date Source Never smoker MD King Medications Ordered Filled Start Stop Current Ordering Indication Dosage Frequency Signature Comments Components Source Medication Medication Date Date Medication? Clinician (SIG) Name Name ascorbic 2019- Yes 1{tbl} Take 1 MD acid 8-01 tablet by Anderso (ascorbic 18:59: mouth n acid with 45 twice enrico hips) daily. 500 mg tablet celecoxib Yes Renal mass 200mg Take 1 MD (CeleBREX) 7-31 capsule True o 200 mg 00:00: (200 mg) n capsule 00 by mouth twice daily. docusate 2019-0 Yes Renal mass 100mg Take 1 MD sodium 7-31 capsule Anderso (COLACE) 00:00: (100 mg) n 100 mg 00 by mouth capsule twice daily. methocarbam 2019-0 Yes Renal mass 500mg Take 1 MD ol 7-31 tablet Anderso (ROBAXIN) 00:00: (500 mg) n 500 mg 00 by mouth tablet every 8 (eight) hours as needed for muscle spasms. traMADol 2019-0 Yes Renal mass 100mg Take 2 MD (ULTRAM) 50 7-31 tablets Maldonado so mg tablet 00:00: (100 mg) n 00 by mouth every 6 (six) hours as needed for moderate pain or severe pain. aspirin 81 2020-0 2020- No Renal mass 81mg Chew 1 MD mg chewable 7-31 08-31 tablet (81 A nderso tablet 00:00: 04:59 mg) daily n 00 :00 for 30 days. losartan-hy 2019-0 Yes 1{tbl} Take 1 MD drochloroth 6-17 tablet by And erso iazide 00:00: mouth n (HYZAAR) 00 daily. 100-25 mg per tablet losartan-hy 2019-0 Yes 1{tbl} QD Take [address] droCHLOROth 6-11 tablet by [facility] [facility] - iazide 10:12: mouth Medical (HYZAAR) 52 daily. Center 100-25 mg per tablet POTASSIUM 2020-0 Yes Take by [facility] ascorbic 2020-0 Yes Take by [facility] acid 6-11 [facility] - (VITAMIN C 10:12: Medical ORAL) 52 Center tamsulosin 2020-0 Yes .4mg QD Take 0.[address] (FLOMAX) 6-11 mg by [facility] - 0.4 mg Cap 10:12: mouth Medica l 24 hr 52 daily. Center capsule pantoprazol 2019-0 Yes 1{tbl} Take 1 MD e 5-11 tablet by Anderso (PROTONIX) 00:00: mouth n 40 mg EC 00 daily. tablet tamsulosin Yes TAKE 1 [place] (FLOMAX) 2-22 CAPSULE BY Metho di 0.4 mg 00:00: MOUTH st capsule 00 EVERY DAY tamsulosin 2018- 2020- No TAKE 1 [place] (FLOMAX) 0-30 02-22 CAPSULE BY Meth gayle 0.4 mg 00:00: 11:[address] capsule 00 :26 EVERY DAY multivitami 2019-0 Yes 1{capsu QD Take 1 [place] capsule 6-26 le} capsule by Meth gayle 08:20: mouth st 08 daily. omega-3 2019- Yes Take by Elliott fatty 6- mouth. Methodi acids-vitam 08:20: st in E (FISH 08 OIL) 1,000 mg capsule losartan-hy 2015- Yes [place] drochloroth 1-17 Methodi iazide 00:00: st (HYZAAR) 00 100-25 mg per tablet Vital Signs Vital Name Observation Time Observation Value Comments Source WEIGHT 2019-12-25 07:00:00 116.8 kg HEIGHT 2019-12-24 18:12:00 176.5 cm WEIGHT 2019-12-25 07:00:00 116.8 kg HEIGHT 2019-12-24 18:12:00 176.5 cm WEIGHT 2019-12-20 08:54:00 113.5 kg WEIGHT 2019-12-20 08:54:00 113.5 kg Systolic blood 2019-12-25 16:40:00 121 mm[Hg] pressure Diastolic blood 2019-12-25 16:40:00 72 mm[Hg] MD Aniya armentason pressure Heart rate 2019-12-25 16:40:00 106 /min Maldonado soriano Body temperature 2019-12-25 16:40:00 36.5 Corazon MD Wally bustos Respiratory rate 2019-12-25 16:40:00 17 /min MD Wally bustos Oxygen saturation in 2019-12-25 16:40:00 95 /min MD King Arterial blood by Pulse oximetry Body weight 2019-12-25 12:00:00 116.8 kg Maldonado soriano BMI 2019-12-25 12:00:00 37.49 kg/m2 MD [place] christie Body height 2019-12-24 23:12:00 176.5 cm MD Maldonado soriano Systolic blood 2019-11-04 09:55:00 119 mm[Hg] [facility] Diastolic blood 2019-11-04 09:55:00 61 mm[Hg] [facility] Heart rate 2019-11-04 09:55:00 58 /min [facility] Respiratory rate 2019-11-04 09:55:00 16 /min [facility] Oxygen saturation in 2019-11-04 09:55:00 99 /min [facility] Arterial blood by Medical Ce nter Pulse oximetry Body temperature 2019-11-04 09:25:00 36.78 Corazon [facility] Body height 2019-10-28 09:03:00 179.1 cm [facility] Body weight 2019-10-28 09:03:00 116.756 kg [facility] BMI 2019-10-28 09:03:00 36.41 kg/m2 [facility] Procedures Procedure Date / Time Performing Clinician Source Performed CT CHEST ABDOMEN W CONTRAST 2020-03-18 17:55:00 Yvonne West MD COMPLETE BLOOD COUNT W/ 2020-03-18 14:32:00 Yvonne West MD DIFFERENTIAL COMPREHENSIVE METABOLIC 2020-03-18 14:32:00 Yvonne West MD nderson PANEL Results CBC 2020-03-18 14:32:00 Yvonne West MD MANUAL DIFFERENTIAL 2020-03-18 14:32:00 Yvonne West MD Maldonado son GLUCOSE LEVEL 2020-03-18 14:32:00 Yvonne West MD ELECTROLYTE PANEL 2020-03-18 14:32:00 Yvonne West MD n SERUM CREATININE 2020-03-18 14:32:00 Yvonne West MD .GLOMERULAR FILTRATION RATE 2020-03-18 14:32:00 Yvonne West MD CALCIUM LEVEL TOTAL 2020-03-18 14:32:00 Yvonne West MD Maldonado son ALBUMIN LEVEL 2020-03-18 14:32:00 Yvonne West MD ALKALINE PHOSPHATASE 2020-03-18 14:32:00 Yvonne West MD Bam rson ALANINE AMINOTRANSFERASE 2020-03-18 14:32:00 Yvonne West MD ASPARTATE AMINOTRANSFERASE 2020-03-18 14:32:00 Yvonne West TOTAL PROTEIN 2020-03-18 14:32:00 Yvonne West MD FRACTIONATED BILIRUBIN 2020-03-18 14:32:00 Yvonne West MDson BLOOD UREA NITROGEN 2020-03-18 14:32:00 Yvonne West MD Maldonado son COMPLETE BLOOD COUNT W/ 2019-12-25 04:24:00 Anand Fernandes MD INDICES BASIC METABOLIC PANEL, 2019-12-25 04:24:00 Anand Fernandes MD CALCIUM TOTAL GLUCOSE LEVEL 2019-12-25 04:24:00 Anand Fernandes MD n BLOOD UREA NITROGEN 2019-12-25 04:24:00 Anand Fernandes MD And erson ELECTROLYTE PANEL 2019-12-25 04:24:00 Anand Fernandes MD Maldonado son SERUM CREATININE 2019-12-25 04:24:00 Anand Fernandes MD True on .GLOMERULAR FILTRATION RATE 2019-12-25 04:24:00 Nathanael Fernandes MD CALCIUM LEVEL TOTAL 2019-12-25 04:24:00 Anand Fernandes MD And erson COMPREHENSIVE METABOLIC 2019-12-24 23:52:00 Yvonne West MD nderson PANEL MAGNESIUM LEVEL 2019-12-24 23:52:00 Yvonne West MD PHOSPHORUS LEVEL 2019-12-24 23:52:00 Yvonne West MD LACTATE DEHYDROGENASE 2019-12-24 23:52:00 Yvonne West MD And erson GLUCOSE LEVEL 2019-12-24 23:52:00 Yvonne West MD BLOOD UREA NITROGEN 2019-12-24 23:52:00 Yvonne West MD Maldonado son ELECTROLYTE PANEL 2019-12-24 23:52:00 Yvonne West MD Anderso n SERUM CREATININE 2019-12-24 23:52:00 Yvonne West MD .GLOMERULAR FILTRATION RATE 2019-12-24 23:52:00 Yvonne West MD CALCIUM LEVEL TOTAL 2019-12-24 23:52:00 Yvonne West MD Maldonado son ALBUMIN LEVEL 2019-12-24 23:52:00 Yvonne West MD ALKALINE PHOSPHATASE 2019-12-24 23:52:00 Yvonne West MD Bam rson ALANINE AMINOTRANSFERASE 2019-12-24 23:52:00 Yvonne West MD ASPARTATE AMINOTRANSFERASE 2019-12-24 23:52:00 Yvonne West TOTAL PROTEIN 2019-12-24 23:52:00 Yvonne West MD FRACTIONATED BILIRUBIN 2019-12-24 23:52:00 Yvonne West MD derson BASIC METABOLIC PANEL, 2019-12-24 07:23:00 Manpreet Fontenot MD CALCIUM TOTAL COMPLETE BLOOD COUNT W/ 2019-12-24 07:23:00 Manpreet Fontenot MD INDICES GLUCOSE LEVEL 2019-12-24 07:23:00 Manpreet Fontenot MD Anderso n BLOOD UREA NITROGEN 2019-12-24 07:23:00 Manpreet Fontenot MD And erson ELECTROLYTE PANEL 2019-12-24 07:23:00 Manpreet Fontenot MD Maldonado son SERUM CREATININE 2019-12-24 07:23:00 Manpreet Fontenot MD True on .GLOMERULAR FILTRATION RATE 2019-12-24 07:23:00 Manpreet Fontenot MD CALCIUM LEVEL TOTAL 2019-12-24 07:23:00 Manpreet Fontenot MD And erson BLOOD UREA NITROGEN 2019-12-23 22:56:00 Dominic Bryan MDson GLUCOSE, RANDOM 2019-12-23 22:56:00 Dominic Bryan MD on HEMOGLOBIN 2019-12-23 22:56:00 Dominic Bryan MD on HEMATOCRIT 2019-12-23 22:56:00 Dominic Bryan MD on BASIC METABOLIC PANEL, 2019-12-23 22:56:00 Dominic Bryan MD CALCIUM TOTAL ELECTROLYTE PANEL 2019-12-23 22:56:00 Dominic Bryan MD Bam rson SERUM CREATININE 2019-12-23 22:56:00 Dominic Bryan MD Maldonado son .GLOMERULAR FILTRATION RATE 2019-12-23 22:56:00 Dominic Bryan MD CALCIUM LEVEL TOTAL 2019-12-23 22:56:00 Dominic Bryan MDson PATHOLOGY SURGICAL 2019-12-23 21:35:00 Yvonne West MD on INTERPRETATION ROBOTIC ASSISTED PARTIAL 2019-12-23 17:23:00 Yvonne West MD NEPHRECTOMY INTROPERATIVE ULTRASOUND 2019-12-23 17:23:00 Yvonne West MD POC GLUCOSE SCREEN 2019-12-23 16:24:00 Yvonne West MD on INTRAOPERATIVE US 2019-12-23 16:09:46 Yvonne West MD n INTRAOPERATIVE US 2019-12-23 15:58:36 Yvonne West MD TYPE AND SCREEN 2019-12-20 16:30:00 Jamil Quintero MD ABORH 2019-12-20 16:30:00 Jamil Quintero MD ANTIBODY SCREEN 2019-12-20 16:30:00 Jamil Quintero MD CLOT EXPIRATION DATE 2019-12-20 16:30:00 Jamil Quintero MD rson TMP INTERPRETATION ANTIBODY 2019-12-20 16:30:00 Jamil Quintero MD SCREEN NEGATIVE COVID-19 (SARS-COV-2) 2019-12-20 13:39:00 Luis F Anderson MD PCR-ASYMPTOMATIC MC EKG, 12-LEAD (SCHEDULED) 2019-12-20 00:00:00 Hue Art MD [place] XR CHEST 2 VW 2019-12-06 20:38:39 Manpreet Fontenot MD Anderso shauna BASIC METABOLIC PANEL, 2019-12-06 20:18:00 Manpreet Fontenot MD CALCIUM TOTAL COMPLETE BLOOD COUNT W/ 2019-12-06 20:18:00 Manpreet Fontenot MD DIFFERENTIAL COMPREHENSIVE METABOLIC 2019-12-06 20:18:00 Manpreet Fontenot MD PANEL TYPE AND SCREEN 2019-12-06 20:18:00 Manpreet Fontenot MD Anderso n HEPATITIS C VIRUS ANTIBODY 2019-12-06 20:18:00 Manpreet Fontenot MD GLUCOSE LEVEL 2019-12-06 20:18:00 Manpreet Fontenot MD Anderso n ELECTROLYTE PANEL 2019-12-06 20:18:00 Manpreet Fontenot MD Maldonado son SERUM CREATININE 2019-12-06 20:18:00 Manpreet Fontenot MD True on .GLOMERULAR FILTRATION RATE 2019-12-06 20:18:00 Manpreet Fontenot MD CALCIUM LEVEL TOTAL 2019-12-06 20:18:00 Manpreet Fontenot MD And erson ALBUMIN LEVEL 2019-12-06 20:18:00 Manpreet Fontenot MD Anderso n ALKALINE PHOSPHATASE 2019-12-06 20:18:00 Manpreet Fontenot MD ALANINE AMINOTRANSFERASE 2019-12-06 20:18:00 Manpreet Fontenot ASPARTATE AMINOTRANSFERASE 2019-12-06 20:18:00 Manpreet Fontenot MD TOTAL PROTEIN 2019-12-06 20:18:00 Manpreet Fontenot MD Anderso shauna FRACTIONATED BILIRUBIN 2019-12-06 20:18:00 Manpreet Fontenot MD Results CBC 2019-12-06 20:18:00 Manpreet Fontenot MD Anderso n MANUAL DIFFERENTIAL 2019-12-06 20:18:00 Manpreet Fontenot MD And erson ABORH 2019-12-06 20:18:00 Manpreet Fontenot MD Anderso n ANTIBODY SCREEN 2019-12-06 20:18:00 Manpreet Fontenot MD Anderso n BLOOD UREA NITROGEN 2019-12-06 20:18:00 Manpreet Fontenot MD And erson CLOT EXPIRATION DATE 2019-12-06 20:18:00 Manpreet Fontenot MD TMP INTERPRETATION ANTIBODY 2019-12-06 20:18:00 Manpreet Fontenot MD SCREEN NEGATIVE TMP HCVAB INTERP 2019-12-06 20:18:00 Manpreet Fontenot MD on CONFIRM ABORH TYPE 2019-12-06 20:08:00 Manpreet Fontenot MD Bam rson URINE CULTURE 2019-12-06 19:56:00 Manpreet Fontenot MD GUA 2019-12-06 19:56:00 Manpreet Fontenot MD GUA MICROSCOPIC 2019-12-06 19:56:00 Manpreet Fontenot MD COVID-19 (SARS-COV-2) 2019-12-04 14:11:00 Belinda Abarca MD And erson PCR-ASYMPTOMATIC [facility] OSI CT ABDOMEN AND PELVIS 2019-11-05 18:19:[address] ABDOMEN/PELVIS WITH IV 2019-11-05 09:22:00 Shorty Serrano [facility] CT ABD/PELVIC EXTERNAL 2019-11-05 09:16:00 Hong [facility] STUDY POCT-CREATININE 2019-11-05 09:16:00 Shorty Serrano [facility] REPORT OF PROCEDURE - 2019-11-04 09:25:17 Shorty Serrano [facility] ENDOSCOPY [facility] TISSUE EXAM 2019-11-04 09:11:00 Shorty Serrano [facility] UPPER ENDOSCOPY,POLYPECTOMY 2019-11-04 08:53:00 Shorty Serrano [facility] UPPER ENDOSCOPY,BIOPSY 2019-11-04 08:53:00 Shorty Serrano [facility] PATHOLOGY OUTSIDE 2019-11-04 00:00:00 Alda Van MD INTERPRETATION SARS-COV2/RT-PCR ([facility] & 2019-11-01 09:03:[address] [facility] - REF LABS) [facility] Plan of Care Planned Activity Planned Date Details Comments Source Future Scheduled 2020-01-25 INFLUENZA VACCINE (#1) [facility] 00:00:00 [code = INFLUENZA Medical Ce nter VACCINE (#1)] Future Scheduled 2019-12-25 INFLUENZA VACCINE [place] [facility] Test 00:00:00 [code = INFLUENZA VACCINE] Future Scheduled 2019-05-26 Medicare IPPE (WELCOME [facility] - Test 00:00:00 TO MEDICARE) [code = Medical Center Medicare IPPE (WELCOME TO MEDICARE)] Future Scheduled 2010 65+ PNEUMOCOCCAL [place] [facility] Test 00:00:00 VACCINE (1 of 1 - PPSV23) [code = 65+ PNEUMOCOCCAL VACCINE (1 of 1 - PPSV23)] Future Scheduled 2010 PNEUMOCOCCAL 65+ Y[facility] - Test 00:00:00 (1 of 1 - Medical Center [id number]) [code = PNEUMOCOCCAL 65+ YRS (1 of 1 - [id number] PCV13)] Future Scheduled 1995-12-31 COLONOSCOPY SCREENING [place] [facility] Test 00:00:00 [code = COLONOSCOPY SCREENING] Future Scheduled 1995-12-31 SHINGLES VACCINES (#1) [place] [facility] Test 00:00:00 [code = SHINGLES VACCINES (#1)] Future Scheduled 1961 COVID-19 VACCINE (#1) [place] [facility] Test 00:00:00 [code = COVID-19 VACCINE (#1)] Future Scheduled [address] [facility] - Test 00:00:00 malignant neoplasm of Medica l Center colon (procedure) [code = 716635795] Encounters Start End Encounter Admission Attending Care Care Encounter Source Date/Time Date/Time Type Type Clinicians Facility Department ID 2020-03-10 Outpatient SYSTEM, LUCIE FAULKNER [id number] 12:25:48 PROVIDER True villatoro 2019-12-23 Outpatient LUCIE JENNINGS MDA [id number] 11:49:49 ASA villatoro 2019-12-23 Outpatient LUCIE JENNINGS MDA [id number] 11:49:49 ASA villatoro 2019-12-16 Outpatient BILL PALENCIA MDA MDA [id number] 14:31:18 JULI villatoro 2019-12-06 Outpatient SYSTEMLUCIE MDA [id number] 13:52:23 PROVIDER True villatoro 2020-03-18 2020-03-18 Outpatient EL JUDI, MDA MDA [id number] 09:43:36 23:59:00 YVONNE Bailoners o n 2020-03-18 2020-03-18 Outpatient EL JUDI, MDA MDA [id number] MD 09:24:53 09:42:00 YVONNE Bailoners o n 2020-03-06 2020-03-06 Outpatient EL JUID, MDA MDA [id number] 13:05:19 13:59:04 YVONNE Bailoners o n 2019-12-23 2019-12-25 Outpatient EL JUDI, MDA Urology [id number] MD 10:18:00 13:59:00 YVONNE Bailoners o n 2019-12-23 2019-12-23 Outpatient EL JUDI, MDA MDA [id number] MD 11:09:46 11:09:46 YVONNE Bailoners o n 2019-12-23 2019-12-23 Outpatient JUDI, MDA MDA [id number] MD 10:58:36 10:58:36 YVONNE Bailoners o n 2019-12-21 2019-12-21 Outpatient EL JUDI, MDA MDA [id number] 00:00:00 00:00:00 YVONNE Bailoners o n 2019-12-20 2019-12-20 Outpatient EL ARAMBI, MDA MDA [id number] 10:45:00 23:59:00 JAMIL [place] o shauna 2019-12-20 2019-12-20 Outpatient EL SUNNI, MDA MDA [id number] 08:47:19 10:55:18 MANPREET [place] o shauna 2019-12-20 2019-12-20 Outpatient EL ART, MDA MDA [id number] 10:00:08 10:44:00 HUE [place] o shauna 2019-12-20 2019-12-20 Outpatient EL JUDI, MDA MDA [id number] 08:31:32 08:31:32 YVONNE [place] o shauna 2019-12-06 2019-12-06 Outpatient EL FONTENOT, MDA MDA [id number] 14:56:36 23:59:00 MANPREET [place] o shauna 2019-12-06 2019-12-06 Outpatient EL FONTENOT, MDA MDA [id number] 15:25:11 15:25:11 MANPREET villatoro 2019-12-06 2019-12-06 Outpatient BILL WEST MDA MDA [id number] 13:16:13 13:16:13 YVONNE villatoro 2019-12-06 2019-12-06 Outpatient EL LUCIE MDA [id number] 13:05:18 13:08:05 True villatoro 2019-12-06 2019-12-06 Outpatient BILL WEST MDA MDA [id number] 13:06:32 13:06:32 YVONNE villatoro 2019-12-04 2019-12-04 Outpatient BILL WEST MDA MDA [id number] 09:04:12 09:04:12 YVONNE villatoro 2019-11-17 2019-11-17 Outpatient [facility] [id number] [place] 00:00:00 00:00:00 M, HONG [address] 2019-11-17 2019-11-17 Outpatient [facility] [id number] [place] 00:00:00 00:00:00 M, HONG [address] Results Test Description Test Time Test Comments Results Result [facility] e Comments CT Chest Abdomen 2020-03-19 Thorax:1. Baseline MD King with Contrast 17:09:[address] evaluation[address]2. Scattered subcentimeter pulmonary nodules, nonspecific, possibly benign, which can be followed. Abdomen:1. Baseline postoperative evaluation.2. No definite evidence of metastatic disease. [This document was created using a voice recognition transcribing system. Incorrect words or phrases may have been missed during proof reading. Please interpret accordingly or contact me for clarification if necessary.] Interface, Radiology Results In - 03/19/2020 12:11 PM CDTFull Result:Examination: CT CHEST ABDOMEN W CONTRAST on 03/18/2020 12:55 PMClinical History: Malignant neoplasm of right kidney, except renal pelvis hx of RCC s/p right partial nephrectomy. Right partial nephrectomy, 12/23/2019Indication : Evaluation Comparison: Preoperative outside CT abdomen pelvis dated 11/05/2019. No previous CT chest for comparison. Technique: CT chest with IV contrast, CT abdomen with IV contrast was obtained. 2-3 mm helical sections following oral and IV contrast, with coronal and sagittal reformats (rectal contrast was not administered). Findings: THORAX: No abnormally enlarged mediastinal, hilar, or right axillary nodes are identified. Evaluation of the left axillary and subpectoral region is degraded by beam hardening artifact from the IV contrast administration that has been implemented.There are scattered subcentimeter pulmonary nodules bilaterally (for example, series 4 image 18, 42, 43, 65, 74, 100), nonspecific. No definite new pulmonary nodules or masses are identified.No evidence of pleural effusions.Nodules are noted in the thyroid gland, nonspecific.A subcutaneous nodule is noted in the left upper back region (series 3 image 17), likely a sebaceous cyst.Some bony hemangiomas are noted (eg series 3 image 102).ABDOMEN:There are stable hypodensities in the right lobe of the liver (series 3 image 180, 217), consistent with cysts. There is a tiny subcentimeter hypodensity in the left lobe (series 3 image 161), probably stable, likely a further cyst, which can be followed. The spleen and pancreas remain unremarkable, apart from calcified granulomas in the spleen. No focal splenic lesions or splenomegaly. The pancreas remains unremarkable. A prior cholecystectomy is noted. No evidence of biliary or pancreatic duct dilatation.The adrenals remain unremarkable.Interva l post partial nephrectomy changes are noted in the lower pole right kidney, without gross evidence of residual/recurrent disease (series 3 image 231, 342). Small cysts are noted in both kidneys, together with bilateral parapelvic renal cysts. No hydronephrosis.No abnormally enlarged retrocrural, anterior diaphragmatic, retroperitoneal, or mesenteric nodes are identified.Anastomot ic sutures are noted around the stomach, and in small bowel loops.Subcutaneous densities are noted in the anterior abdominal wall, consistent with postsurgical change.The visualized skeleton is unremarkable.IMPRESS ION:Thorax:1. Baseline [facility] CT evaluation.2. Scattered subcentimeter pulmonary nodules, nonspecific, possibly benign, which can be followed.Abdomen:1. Baseline postoperative evaluation.2. No definite evidence of metastatic disease.[This document was created using a voice recognition transcribing system. Incorrect words or phrases may have been missed during proof reading. Please interpret accordingly or contact me for clarification if necessary.] Fractionated Bilirubin 2020-03-18 15:15:38 Test Item Value Reference Range Interpretation Comme nts Bili Total (test code = 0.9 mg/dL <=1.2 Indo cyanine Green (ICG) september 5095) cause falsely e levated bilirubin resul ts. Total and direct bilirubi n must not be measured from s amples containing indo cyanine green. False elevation of total bilirubin can b e seen in patients with I gG concentrations above 28 g/L. Bili Direct (test code = 0.2 mg/dL <=0.3 Ind ocyanine Green (ICG) september 5093) cause falsely e levated bilirubin resul ts. Total and direct bilirubi n must not be measured from s amples containing indo cyanine green. Bili Indirect (test code 0.7 mg/dL 0-0.9 = 5) AMARILYS (test code = AMARILYS) Please schedule in AM MD KingCalcium [id number] 15:15:37 Test Item Value Reference Range Interpretation Comments Calcium Lvl (test code 9.6 mg/dL 8.4-10.2 = 5258) AMARILYS (test code = AMARILYS) Please schedule in AM MD KingAlbumin [id number] 15:15:36 Test Item Value Reference Range Interpretation Comments Albumin Lvl (test code 4.2 3.5- 5.2 gm/dL = 4763) AMARILYS (test code = AMARILYS) Please schedule in AM MD KingAspartate [id number] 15:15:35 Test Item Value Reference Range Interpretation Comments AST (test code = 4731) 27 U/L <=40 AMARILYS (test code = AMARILYS) Please schedule in AM MD KingElectrolyte [id number] 15:15:34 Test Item Value Reference Range Interpretation Comments Sodium Lvl (test code = 139 136- 145 mEq/L 7355) Potassium Lvl (test 4.6 3.5- 5.1 mEq/L code = 6854) Chloride (test code = 102 98- 107 mEq/L 5279) CO2 (test code = 5227) 28 22- 29 mEq/L Anion Gap (test code = 9 4- 14 mEq/L 9325) AMARILYS (test code = AMARILYS) Please schedule in AM MD KingGlucose Gkysg1838-51-97 15:15:33 Test Item Value Reference Range Interpretation Comments Glucose Level (test 101 mg/dL 70-99 H Referenc e range is code = 5699) valid for fasti ng specimens only. Guidelines established by the [place] [employer] guidelines (Standards of Medical Care in Diabetes 2016. Diabetes Care 2016; 39: S13-2 2) are that a fast ing glucose of grea ter than or equal t o 126 mg/dL or a random glucose greater than or equal to 200 mg /dL with symptoms, that are confir med by repeat testi ng on a different day, meet the criteria for diabetes itzel sheriff. AMARILYS (test code = AMARILYS) Please schedule in AM Lab Interpretation Abnormal (test code = 92111-3) MD KingGlomerular Filtration Kdht6442-41-28 15:15:31 Test Item Value Reference Range Interpretation Comments eGFR-AA (test 74 >=60 mL/min/1.73 Normal eGF R: >= 60 code = 8062) sq. m mL/min/1.73 m2N ote: The eGFR is arti culated using the CKD-E PI equation. The e GFR declines with a ge. eGFR <60 mL/min /1.73 m2 is considere d as "decreased". Th is equation should only be used for pat ients 18 and older. According to th e National Kidney Foundation's dney Disease Outcome Quality Initiat ashtyn (KDOQI) classif ication and 2012 Kidney Disease Improvi ng Global Outcomes (KDIGO) Clinica l Practice Guidel ine, the stage of CK D should be categ orized based on estima roger GFR. Stage Desc ription GFR mL/mi n/1.73 m21 Normal or h igh GFR >=902 Mildly decreased GFR 60-893a M ildly to moderately decreased GFR 45-593b Moderat grant to severely decrea sed GFR 30-444 Nataliia rely decreased GFR 15-295 Kidney f ailure <15 eGFR-JODI 64 >=60 mL/min/1.73 Normal eGFR : >= 60 (test code = sq. m mL/min/1.73 m2N ote: 8063) The eGFR is arti culated using the CKD-E PI equation. The e GFR declines with a ge. eGFR <60 mL/min /1.73 m2 is considere d as "decreased". Th is equation should only be used for pat ients 18 and older. According to th e National Kid[employer] Foundation's dney Disease Outcome Quality Initiat ashtyn (KDOQI) classif ication and 2012 Kidney Disease Improvi ng Global Outcomes (KDIGO) Clinica l Practice Guidel ine, the stage of CK D should be categ orized based on estima roger GFR. Stage Desc ription GFR mL/mi n/1.73 m21 Normal or h igh GFR >=902 Mildly decreased GFR 60-893a M ildly to moderately decreased GFR 45-593b Moderat grant to severely decrea sed GFR 30-444 Nataliia rely decreased GFR 15-295 Kidney f ailure <15 AMARILYS (test Please schedule code = AMARILYS) in AM MD KingTotal Tvoaulh0153-22-84 15:15:30 Test Item Value Reference Range Interpretation Comments Total Protein (test 7.3 g/dL 6.4-8.3 code = 7649) AMARILYS (test code = AMARILYS) Please schedule in AM MD KingAlkaline Khdwqtjrkwq5587-03-52 15:15:29 Test Item Value Reference Range Interpretation Comments Alk Phos (test code = 73 U/L 40-129 4768) AMARILYS (test code = AMARILYS) Please schedule in MD KingFsawyxlnJOJ7095-46-73 15:15:28 Test Item Value Reference Range Interpretation Comments ALT (test code = 4705) 25 U/L <=41 AMARILYS (test code = AMARILYS) Please schedule in AM MD King.Serum Kajcccvchv6844-22-08 15:15:27 Test Item Value Reference Range Interpretation Comments Creatinine (test code = 1.12 mg/dL 0.67-1.17 5399) AMARILYS (test code = AMARILYS) Please schedule in MD KingFuikxbzeCQA1524-57-07 15:15:26 Test Item Value Reference Range Interpretation Comments BUN (test code = 5055) 21 mg/dL 6-23 AMARILYS (test code = AMARILYS) Please schedule in MD KingFpqsngxtWmcdtozsiarz2721-41-33 14:47:15 Test Item Value Reference Range Interpretation Comments Neutrophil % (test 52.2 % 42-66 code = 6491) Lymphocyte % (test 31.7 % 24-44 code = 6194) Monocyte % (test code 12.7 % 2-7 H = 6422) Eosinophil % (test 2.1 % 1-4 code = 5520) Basophil % (test code 1.1 % 0-1 H = 5068) IGRE % (test code = 0.2 % 0-0.4 IGRE % c ount 5958) includes Metamyelocytes, Myelocytes, and Promyelocytes. Neutrophil Abs (test 2.97 K/uL 1.7-7.3 code = 6492) Lymphocyte Abs (test 1.80 K/uL 1-4.8 code = 6195) Monocyte Abs (test 0.72 K/uL 0.08-0.7 H code = 6423) Eosinophil Abs (test 0.12 K/uL 0.04-0.4 code = 5521) Basophil Abs (test 0.06 K/uL 0-0.1 code = 5069) IG Abs (test code = 0.01 K/uL 0-0.04 5954) AMARILYS (test code = AMARILYS) Please schedule in AM Lab Interpretation Abnormal (test code = 55515-1) MD King.SNF9525-14-15 14:47:10 Test Item Value Reference Range Interpretation Comments WBC (test code = 5.7 K/uL 4-11 8034) RBC (test code = 4.93 4.50- 6.00 M/uL 6932) Hgb (test code = 13.2 14.0- 18.0 L 5898) gm/dL Hct (test code = 42.0 % 40-54 5860) MCV (test code = 85 fL 82-98 6222) MCH (test code = 26.8 pg 27-31 L 6220) MCHC (test code = 31.4 31.0- 36.0 6221) gm/dL RDW-SD (test code = 44.8 fL 35.1-46.3 6972) RDW-CV (test code = 14.6 % 12-15.5 6971) Platelet count (test 315 K/uL 140-440 code = 6832) MPV (test code = 9.0 fL 4-10.4 6282) INRBC (test code = 0.0 % <=0.0 The INRBC 5974) (instrument NRB C) value reflects the enumerationof nucleated red b lood cells contained in a 200uL sampleo f whole blood analyzed by the instrument. Thi s value maydiffer from the NRBC v alue reported in a manual differential,wh ich is based on a 1 00 cell differenti al. AMARILYS (test code = AMARILYS) Please schedule in AM Lab Interpretation Abnormal (test code = 60299-6) MD KingPathology Surgical Vegtzzhfjqbpnu9020-19-64 15:55:00 Test Item Value Reference Range Interpretation Comments Diagnosis (test code a4bgqIGsPNXsqYC7YTJvVJGe = 34) y3xbi1LbvSIdvOAvQGgviMAf wrSfgo07eHN0eU38TE6pKYRi AiE9QFVrtzR1Iaw4LLLcIXSa zNQkX341e3adm1ohvhKafWN4 fVxwYXJkXHBsYWluXGZzMjAg TB8hJ4gDHyLUQWMESJrKJHnw NKMXVQNWKB1GVFfuLsHSCQGN YTCAS1fDNefylJTpHVqrOzXb OArscocyNJAYMJixc7IoJYJw n6M8KCxbhr0acBArz5FneLUe i0MgtA5wrGBoQPyqCRmnyN9m NOTbHHuJFN3FQHubMkpBCMVp EZ9KO1DgPRQCQpJZMHqwFkQF CRAGH5QGOLo0NCYrwom8CJEm DuDBQUfwI7VQHCUJLFMSEO8Q TUEsIENMRUFSIENFTEwgVFlQ NVrxEXxDICxiX6LQH01SHKUM QXBfHA7ITQJBWWHEF2xICCAV RSkXCyMXOW0CSWGODP0HNZIe qnqczAlxFYajwDgfOSgyvG06 MjAgKDQuOCBYIDQuNyBYIDQu SKGBKYalBSEWIPnOKWHZJ5cB VVAgTlVDTEVBUiBHUkFERSA0 LINYF89CLU6XWMBBSaJXVTVv H3nLCnEKWOwvRVXyKMYWMZRK O38GSC2ILUJMYSLGQQWdMOIT WVlHKKIfHixeaT6aAAAivflp aTBcZmkwXGxpbjAgUFIvWUVc bGluZVxwYXJ9 Comment (test code = m8lyeHDoAMMheQK4QBHeMRGe 9835) r6ymi3OayMWxkQVnYYxylEFr igBnoj58kCD5pW46SQ0rRYMl GfY8UANecsK0Aqn7QANrOYQh uWIiI535h9pbe9iysmFyvHD6 fVxwYXJkXHBsYWluXGZzMjAg RDdzYRN3bZ0yAFN7m8kflvKh tiEcSTYgINSlYlP9mwO7yRTn dwGhVPhwh1lufBZrFjJ2FCH2 oRYgh7C9OHNgJpriaOB5SSDy TOB4mnHpfPc8HRGrqoRyfLCu cKLonI1fgERjxE== Synoptic Checklist KIDNEY: Nephrectomy (test code = 9864) (KIDNEY: NEPHRECTOMY, PARTIAL OR RADICAL - All Specimens) 8th Edition - Protocol posted: 01/20/2019 SPECIMEN Procedure: Partial nephrectomy Specimen Laterality: Right TUMOR Tumor Site: Lower pole 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 Grade: G4: Extreme nuclear pleomorphism and / or multi-nuclear giant cells and / or rhabdoid and / or sarcomatoid differentiation Tumor Size: Greatest Dimension (Centimeters): 4.8 cm Additional Dimension (Centimeters): 4.7 cm Additional Dimension (Centimeters): 4.4 cm Tumor Focality: Unifocal Tumor Extension: Tumor limited to kidney Sarcomatoid Features: Present Rhabdoid Features: Present Tumor Necrosis: Present Lymphovascular Invasion: Not identified MARGINS Margins: Uninvolved by invasive carcinoma LYMPH NODES Regional Lymph Nodes: No lymph nodes submitted or found PATHOLOGIC STAGE CLASSIFICATION (pTNM, AJCC 8th Edition) Primary Tumor (pT): pT1b Regional Lymph Nodes (pN): pNX ADDITIONAL FINDINGS Pathologic Findings in Nonneoplastic Kidney: None identified Gross Description l8bseNNwAPAfk4snCNYiJsSb (test code = NTRZc4fmb226bPHeZZplRzQu [id number]) YgF8mCWgLRBvgDClh8P9VKge bIIqEwVDoyngeWk1p4opZ1cm xh8zYD9cPyPrUPShGNIhEVVs euSfNZXjmOYfLZ3ssfYSr70o akw0j2byRUzfwZ7jBVVoIBHv tXFxj2Z7GVjhaEOwMXLQm3Bp kWWoYL9hmex0w9nvZDxax8np f3PsFwPeCQKxMEYlHJKytePn HANudXPzZT3hpgCenee1d7no XHVgRj6sMCYqcjziI5jzqiHi oVQkYeOdzODoJ415taaujmz3 h7vySAXcQg5faVpsX6frcuQb dDBcZnBycTIgVHJveSBNaWNy vrVcvFN5yQwbMjRaFETsl65q ozatH1pwwfLpbGFkLfXucISd F9ypAk5iQ291ZYXsMUuyp2jn x2GtLeTnIYHyTJXmYQNhidKj SJXmF21dDRVCS084FHCsDPEe NSSsb1jfh2yzW0hhcoEfeZKp NdXlyCFrCRKeRMd1tF6Mm0yb c5omahHnsDB8ZZRzLSXrE8Ra PY1aRBIrkJWzL1fqEUOsKBjo kaVdckH0HDPunVCxXTjrgrTn FpHsU8XaXT9iUHihvADmEyY6 ZNFyNIL6WOqnTIQcXQkiKpa5 YLF9H0jwNMF4I3zntyNbrdEt TLWluUJ7TfjjsqGsFzoiJ8Kf RR10ZBccbMBfBcq4MXBhLMj4 MKcfRHFeFJOiHoq4TLo0B1ay CTGpBLIpG5AdQV9lSJAjIeq3 BGEuRYffwqQjVTN1FHmdXLTf GTP1UCMxrBFgEfh7XSOnEHM4 A9qowoBtffH2L2swiZIrHNOr J1dpQZJiGUdtI3CxTA1xZGqn Fqa8LEM2VDplhxUgMSw3ZYvg SYPmIIm0AGRmqNZjPcI2XXPm UTE9WJhbuvRzgbP0YDaasYIa ORxbG0mpMTXiHStwE2OyHM0d BDwuKkl8NFPuIupesvCbIqPd XGdyZWVuMjIzXGJsdWUyMjM7 XHJlZDIzOVxncmVlbjIzOVxi jHNiJyU5W7cvJPNyIEAvS9Zq ZE7rGCNuKfz4VYM6NLuavaCx BFrntpLharUfSur4VAX2OFs6 Sygnd9D9eVEkpJKbeVrwjxQm uCLwAFbkLmCaF798RGLjQIfb FBAcyabxDzs4g4krNzQfTMRa gB0nFOO8sTlscuZpuZTiGKfr MyJ1M979OPQ6WFqaVQAdjykq ZHw5o8msBlXfRYTfwU7fHMN9 lK3QLwhlGPYosqmhUHt4CMlf LKUjfflvPsY6KVtmFGJtwEw7 CBxxZLAzqiJ3IrdxCIVrgYbv MFxtYXJnYjcyMFxoZWFkZXJ5 DpXjGZLep2Nvrkr3KqDxPoPs MMGNHzlrhMLvVKN3EFH6VtZq UCQyWzroPVIiYI9feGlkgLt3 xZlwIEKsuhN3rZJoXQaei5np MIB3j9uxuuawVDAiQLgcMj0n nKMwhEczXjLeVGKeSDt4qA03 FACivH7gfRRmIRv0LAMgysHq xYtprS5wOxIpMOJREtJZhTEo ATphPDWcE6l2OOSFSNTgnHLv g8ZcxWHODTO3FRGhtvBtc2Td HC4nLNIvdT7uyzggxiJgPUBg f4F0aO6lHE4pQBEueYOlr1Mv vYioz5NaXMr3SndrcIH2QhIl kTXbCqCaW86bLclrsP4sPQXs QkFBdMStd6IiZ9kuSV6iiIDs e7PdtFfyntAyHCIkCZQzcxNf qJJmgpW7fzWnlVJhq8GuhAHu mJQuvR84UIPxxgIsy4K3cNP4 WOMlQNInlP6kCFJ3zUAdzSHo DVzxsQPaVDmaDW96zRDiv7hg RAM8lfYmfKIdm5JrtFCbFQZa slb0ZVQzN0ARMSlMBhSIC6JS XpDAFY3AXswmcjQzmiLeNP94 MYNmzoQqm9UmyJldrpHmh6Ik UMWsbQ5yDHE0rMGelVSaNBPu usbitt25XXQ1ZIPkl7EcQ8Iy BUUSQGXal5FcM6AvGDpsmMSo jeittsYeHZSgca2kiYYlpEdm uRGkVIY0FTU6QkFrALHuZkgg GKNeNC9rjFmguGu5tWciDSRk mhA8pNDqIIujn3wcNME2y3sb mobyMODnSDuoLx5ewGVaoEmz IaNvUYKvGXo6pK66CZDfwS5a cIGfHHh2XPLzzvQmiRgfnH9a ZnMyMCBCLiBLaWRuZXksIFJp X5v3UEOYOBD0cAHiXM8dzXsb CNJ2f571ECVJqMqbuTNCMQ5j kILMHNOeWGDyBV5mHU8OWXR6 OiBBIHBhcnRpYWwgbmVwaHJl Y8NokPfdj5YzM2hfCE4aVGZ1 ZcVqaUQ3TfXhgFI9AkayG65s CXefB8r2TEouBaAdKALjgaUa rACvEiZfZAdes4CwXAGwa4F9 LUTaJJ11VEmsWR0uSUhjUV21 FCQpGZiljWatSUT9dvbwc40m tAFaZFafFFxmFQGvHQN6pAOi ZSBpcyBhIGRlZmVjdCBpbiB0 mJAmxjUyUDD4wJ9hWD2lcakt mq8dLBewthBqxMNxZJRuYyGi yMAqGtNosGWjEireL09obA0m oUycfmJbCeFjyY54arVhAHDy lGPna1WpnL0sBQPxypfcHKKv NAypugUbeDBsCMBtHH71LWwr IF00IAyuWU39DMAgFFR1FKzz URYmwiS4jOAcgcldYAXezYCt f8MikV3dfWzsKPalKV4ueR1l FIaxYJ4or9MhfMRuk4Htlnsq LXBpbmssIHdpdGggYXJlYXMg l5DbgYTrl9BzlKIpONIdtgAl dcPkre8nuIHaUUDoZHC0rS5x bzTtikVty3WgsXWkLCVaSAIn dGQbdv5wTPRyWRSywN8wNBE9 QJByneSaJ3m4sOTpAVYpg8Uz pHgzoqAlGSFutC8iIQAcUIL9 cJ7uooPzlnKqn72cpT1wWNT0 vtO7fDKup2ypjyI5WwERhPXa iLSql5FdLSU7rBXlVyH1FXKc EHWyms08TCjnhnImVTSdgrJv KYUqOURbpO08tyJ0sTHkwPOb MKFbNOH2xX0ffpAef8XtWF1u dCBpbnZvbHZlIHRoZSBwZXJp zbMysKYjWgScEBiif4CvKPWo h6G8YB7enHWuYRIboxTOvPHf JSDxXEHwgrFhl7ehxcQ4NSKe quLwK2d7tKAfgNHhdW6fAH1j cmthYmxlLlxwYXJccGFyIElO RpSCI5RNMiYXsGMnRS3anpRg BEM9qC4wMK9qfycvyfnmXlzq M3qwGMMkCL1miMDpaA57fiwj K3BbxbmiGG7oDFTyQPC6Ljfi BURegNQdZHEPO7JLJ74bL77D EOkoSgEgJoKhUDR4hP5fXYgt nJiuURViDPN6MIZpLDIlZPPy bZ33UKTxBML3PEJ2kS5plrW7 aXRoIHJlbmFsIHNpbnVzOyBC So0MRFrbuXKso7Wfg1g8lTYx JKEdvNqzJPAnZZIdENF8WZMq DZwocd8oceBnyRaeu5KpMaFi aWRuZXkuXHBhclxwYXJccHJv cVOteYrbmw37TAP7DDTZYBwd np15SPE2VGJpvBcjvN9bGsIk HVnpMZV1XITvgx2MfE== Disclaimer (test code e3ukfZFdWFMuvKAnXqHyGXYa = 9844) QEIil4epSVApaDKsUaCtSxRa TkInLyzlrOYhITVnVyIig4dc r283gDDiz6jlKFHaUyY4aYTl KFObrNBgK594RSSuGXwbb5oi p6KeLVEavJSvl9S5PZJHdaok wHp8vBmuD17gp7O6MsbcR8dz TQAbZVNkZ7OkCK1dWFObEoa6 AXB5QJU2YTSqBBRtJ0FqKJ8l JYSjwGEtYXu0w7yiiTicMPRk SVC2u9vcFHskbbMvGS5vbg3z jXi0q8cbgxRcXDLsKOLfrEYU YDDpO8LcbApjYg1waQd9xBbo MebfCWI6Ujh5FT5pxt67qdj9 uLllJJDbzylbYrZ2EDapLVYj lswoAIu5PXduRZEoaQW8SELu fORzX6AgAGObLP2yjpq1UEQ4 KZswSFAeTrN1EIUybSMkKRHn yAetANhtw526BUS7VtMjLF4o H9Pgh1F3nA8tuIDeXAGxpKRn LrUiFSZwzv8rgBXjJGnew8Bt OGH0oiO9cBFxfLYxEYKuJS80 Yjxqb9CbNhhnOHF5CAKwkiWa b3Jno6yuPjYrsdRxY8nnO9Mo RHIoRBOfMUCqDvLdgwPmp2Ig f2PnpGYoiEc7h4pqRZVsOGDg sIfuk5smOFV5JQAbG2X0fFTo f8njGYgpATFdhBI0vxH0VFFh pPPbM5KmvJ7lRUPhES7eahl1 h2nlQKN6FAodEHArEaF6dnG2 CYUhsPDkJAVuzBhyJZrba741 BXU6SwGpOWDti2WyF8JegJkn B52tbSmaK00kCNUdlThslX9i cWjmfR3tMtEiLbGjSHgviQfh bUDrbkpsJNwymmS8UIkwpbbg ENObAAkhF9qiWmEcCJVacGnp DQgfr2VbENVsEFRuTvrlbkB9 GINPw07cRLNos3DcZBSreU0i bOZfAJfgkdQatSI7DFtjhzOo OpPrgbSrIUKerE7kBYRqCD8r XJXfwuKysf8wntDiLSImNAEc T8SdlnhhyVsdigHlRWZqvz7w brNxMCX5HQGOCK1DRIAbJNRp p12fSPEllQpucT6qsVDfpxOu TKHnp1MlzK4btVJUSZVoT9kd NF2yXKdgu9DwfLIpfWUcxQY7 ICEkw0OeUpRrxbFnpORvtPBa R6BalFcpT2ybBGPyXKMdpaXz uYHzu9JfOLAjjZN0kSJzRH4G GxNCi40aWRAvZXLYdfVlHTDj gOevkZG0dyR1gF2xDrKQMiTq xYDqaVHhRivdFBAji215qy0a sgB3FDCdUILptpmyx4ZeGRWd SXKziL59WEZeLXBjcc2kywvm vADfntLjO6Urlap2jP9jGOPz YWluXGYxXGZzMjJcbGFuZzEw MzNcaGljaFxmMVxkYmNoXGYx URftU4sfBzSpIjXiAfzjVKJ6 MD KingComplete Blood Count w/o Hbcuejoikuky0244-03-05 04:59:34 Test Item Value Reference Range Interpretation Comments WBC (test code = 13.1 K/uL 4-11 H 6690-2) RBC (test code = 3.97 4.50- 6.00 M/uL L 789-8) Hgb (test code = 11.6 14.0- 18.0 gm/dL L 718-7) Hct (test code = 35.0 % 40-54 L 4544-3) MPV (test code = 9.2 fL 4-10.4 787-2) MCH (test code = 29.2 pg 27-31 785-6) MCHC (test code = 33.1 31.0- 36.0 gm/dL 786-4) RDW-SD (test code = 48.0 fL 35.1-46.3 H 71405-0) RDW-CV (test code = 14.9 % 12-15.5 788-0) Platelet count (test 265 K/uL 140-440 code = 777-3) INRBC (test code = 0.0 % <=0.0 The INRBC (instrument 5974) NRBC) value ref lects the enumeration of nucleated red b lood cells contained in a 200uL sampleof whole blood analyzed by the instrument. Thi s value maydiffer from the NRBC value reported in a m anual differential,wh ich is based on a 100 cell differential. Lab Interpretation Abnormal (test code = 37692-7) MD KingMagnesium Mxqyx1588-49-59 00:42:01 Test Item Value Reference Range Interpretation Comments Magnesium (test code = 6359) 2.2 mg/dL 1.6-2.6 MD KingPhosphorus Zwhjh2127-05-91 00:41:55 Test Item Value Reference Range Interpretation Comments Phosphorus (test code = 6817) 2.8 mg/dL 2.5-4.5 MD KingTpyfyigqVHH3228-14-50 00:41:54 Test Item Value Reference Range Interpretation Comments LDH (test code = 6111) 293 U/L 135-225 H Resul ts greater than 1651 U/L may no t be reliable due to matrix effect w ith extended diluti on as it exceeds the applications trainer s recommended l imit. Caution should be exercised when interpreting yi ch values and done in conjunction wit h clinical contex t. Lab Interpretation (test Abnormal code = 90316-6) MD KingFhjhqrfkAlvrynhndf4424-60-99 23:35:56 Test Item Value Reference Range Interpretation Comments Hct (test code = 4544-3) 37.3 % 40-54 L Lab Interpretation (test code = Abnormal 41998-8) MD KingGjsjsadxKbqylfidjl6284-17-37 23:35:55 Test Item Value Reference Range Interpretation Comments Hgb (test code = 718-7) 12.8 14.0- 18.0 gm/dL L Lab Interpretation (test code = Abnormal 71951-3) MD KingGlucose, Icpxpr8917-21-59 23:34:53 Test Item Value Reference Range Interpretation Comments Glucose Random (test 150 mg/dL 70-199 Effecti ve 12/20/15, the code = 9360) glucose referen ce intervals have been updated based o n [employer] clarita delines (Standards of M edical Care in Diabete s 2016. Diabetes Care 2 016; 39: S13-S22).Fastin g blood glucose:Normal: 70 99 mg/dLImpaire d fasting glucose (increa sed risk for diabetes or pre-diabetes): 100 125 mg/dLDiabet es mellitus: >/=1 26 mg/dL Random blood glucose:Normal: 70 199 mg/dLNote: Random glucose >100 mg /dL is associated with increased risk for diabetes MD KingPO Glucose Lfziiv5837-24-17 16:30:33 Test Item Value Reference Range Interpretation Comments POC Glucose (test 98 mg/dL 70-99 MD Rodrigo Jin code = 07584-9) NotifiedCapi llary blood samples, e.g. o btained by fingerstick, ma y have inaccurate resu lts in patients with d ecreased peripheral bloo d flow. PO Sample Type Capillary (test code = 9554) MD KingINTRAOPERATIVE [id number] 16:09:46This procedure requires no interpretation from the radiologist.MD KingCOVID-19 (SARS-CoV-2) PCR- Asymptomatic [id number] 23:43:47 Test Item Value Reference Range Interpretation Comments COVID19 (SARS Not Detected Not Detected This test is a CoV-2) Result qualitative (test code = reverse-transcr iptase 60098-8) polymerase gayatri n reaction (RT-PC R) developed for t he Dejah BEN 680 0 system and inte nded for the detecti on of SARS CoV-2 RNA in human nasophary ngeal specimens from patients who me et COVID-19 clinic al and/or epidemiological criteria. This assay has been approv ed by the FDA for use only under Emergency Use Authorization ( EUA) in laboratories that have been CLIA-certified to perform moderate-comple xity and high-comple xity tests. The performance characteristics of this assay were verified by the Microbiology Laboratory at [facility] [place]. Results must be interpreted within the context of all relevant clinic al and laboratory find ings and should not form the sole basis for a diagnosis or treatment decision.Electrical Maintenance Technician al controls are in cluded to assess for possible amplification inhibitors. If inhibition is detected, testi ng is repeated and if inhibition is confirmed the specimen is res ulted as "Invalid". "Inconclusive" results are due to partial amplifi cation of SARS-CoV-2 targets. When t his occurs, results are confirmed by re peat testing before issuing an "Inconclusive" result. When a n "Invalid" or "Inconclusive" results occur, it is recommended to wait a minimum of 3 da ys before submitti ng a new specimen fo r testing if clin ically indicated. COVID19 SARS [employer] Swab Source (test code = 64287) COVID19 SARS Pre-OR Procedure Indication (test code = 33693) MD KingTMP Interpretation Antibody Screen Fsqbdenh3660-16-65 21:21:00 Test Item Value Reference Range Interpretation Comments TMP Auto Neg At the present ABSC Interp time, patient (test code = plasma shows no ____ALONZO NORIEGA 7535) evidence of RBC KNOPFELMACHE R alloantibodies. MARKOS,Yoni roger by: ALONZO LEANN DANNY BURROWS,Dictated Date/Time: 11.24 16:21 PM CDT Transcribed Taras e/Time: 12.20.2019 16:2 1 PM CDTElectronical ly Signed By: ALONZO AGUIRRE, on 12.20.2019 1 6:21 PM MD [facility] [id number] 18:29:57 Test Item Value Reference Range Interpretation Comments ABSC. (test code = 890-4) Negative ABSC MD [id number] 18:29:56 Test Item Value Reference Range Interpretation Comments ABORh. (test code = 882-1) A NEG MD [facility] Expiration [id number] 18:29:52 Test Item Value Reference Range Interpretation Comments T & S Expiration (test code = 12/23/2019 5318) MD [facility] Outside [id number] 18:34:00 Test Item Value Reference Range Interpretation Comments Materials Received (test d5bcmPMmMQTttTDlHeIu code = 9973) XPUvSAIbu0mhCXHqyYUz ZzEwMzNcZnRuYmpcdWMx MFLyKpZip7knz983uSBm l0diSGWxZuV6eYHpGLUm cMEaK311VIHfEYtss0td r6YfCKPxaBHdq0O5UOGH xedyqRz9wQbiQ14uq0R6 AozzT0krWBYsFISfL7Uy VD2zYVDoEfg8KOT6MNU8 ZURdKJBlE1DzSP3fQTNe rMAfFAo6c2booUipHKEr NEQ5f0rtETfahbDsZI3d xm4anVg5v7rhehRtMVYp OFOzgFGQXCXjS7MhiNwe Tu1ubHb3uFdtKpqjJHC0 Wls0TV2wwk09phz6mQoy PXFfrnzaGjU8OWfgFKRx utpzMUt9IIxbWVPorCos MFxtYXJncjcyMFxtYXJn qRZ1JNUbeSGdB3NqZZMi TShtKFKghod4FmAoOm8g fGNvqOqjGYjxq6wpc2ug vKIxNss9SVCfVxEcKeau SGqzc3Wqq2bnJHZofm2h YED0gHIzqSfyk7J6pNAs ARRjfYYgutVvJMDyqt54 sTKghBJkoBYpts6rszRo gTLlfNEkLMA6qJMcnxGo CLNmaVWzUTTmUB9gyXWq GDRsdO6elnguVJWhBgAt mtvbDMGblEvlmoZvWe3h vGknFXY8LFyzI4lyiC0l DkU3UDlkU9ldgR1cLWd9 QSyztWO6HJLsjK5tPG1b wrlqz0mwHlLaQS3ilkwe e8grHiMfPR7upum6k6nk ADL9LUidXVJpWaF0awL3 NDBcaGVhZGVyeTcyMFxm e105YZX5IeYzLWWtx9Qj T4FgjEvnL98fyDnoA45d CVDpcTbleD2mfAozbK6p KfXkAmPvQRa8tc05HKx6 hkujeDveZJb7xbKwUMBo CNM0QQMmeAMxXWBvX7d7 bgGvWDAsLJP5BWYzjBCn TYLdM6z9fsWfRXL5UEo6 cnBhZGRmdDNcdHJwYWRk YjBcdHJwYWRkZmIzXHRy sDCvlYBvkSOdxO3siXyj DBDjxCRqwO9iGWD6BURv cmgzMjBcdHJoZHJcbHRy zt35IRZspbWirZPwsYlt zJPvNEW5COMrVKCeIPFe WTS5KHGgDpDgekOtVJbm bGJyZHJiXGJyZHJzXGJy FWA8TASjDkMhkyFjZNjb bGJyZHJsXGJyZHJzXGJy FGZ9RULxRkNmqsAlNTup bGJyZHJyXGJyZHJzXGJy CIM7KCBjFySauoSvHAot bHBhZHQxMFxjbHBhZGZ0 S8kfbIEeUWHwNXasmCHn OYKaP3iqbGFeVXpeHMIa cGFkZmwzXGNscGFkYjBc C8ibFLEkGjGbS4DzqXd8 MDAwXGNsdmVydGFsdFxj eFFeHFM5KTVaTJVdSQXb VYG2EUMdGmWdtoPnXLad bGJyZHJiXGJyZHJzXGJy HJL5OMVmUrSnpfWmIRqw bGJyZHJsXGJyZHJzXGJy LPT8CGGkPpBwxfVdQGnw bGJyZHJyXGJyZHJzXGJy KDU8HTPqXhLyaqRgPGpi bHBhZHQxMFxjbHBhZGZ0 N8axyMFcAXJdKAgjyCQg VKGzS5cflTKfTElcRLCl cGFkZmwzXGNscGFkYjBc M9jeNXQeHyYiK2SumOj7 NjAwXGNsdmVydGFsdFxj dLRtCJY9EUKbIMBpWEOl LZZ6OOShBfEohkDoHNqd bGJyZHJiXGJyZHJzXGJy UBI4VNRwCuTvxfRfSWam bGJyZHJsXGJyZHJzXGJy YUG9SGSdSvLdyvEiKMzx bGJyZHJyXGJyZHJzXGJy WOF5XQClKlCnvdJfFOmk bHBhZHQxMFxjbHBhZGZ0 F2frgGStYHZiSEivdSHp DBJbN7ikqIUoBOulELHz cGFkZmwzXGNscGFkYjBc I3bvWKVuDqPqW4XtoRf3 AzClSRZntwBphW79Tjoe w1AoTZTqDTO0YRmaKMfy bFxwbGFpblxmMVxmczIw UHrtmtcbOTIwVCubW5nj JdTrAAYrkJvaESyjk2Zq XGYxXGNmMlxmczIwXGIg WDWlGEYnmH0sUefyE6Bi xH0gHIjrJaicL9hbHHHm w2FvuU2hVJrvaHJhtwgf MVxmczIwXGxhbmcxMDMz XDhxC2mePeQmECXqhFpq ZTzmv1ImTUNiQIFxYolz xnDtLCg0gvObVGPyaLcu yGWdDKicsyRoyGlyi7Kx eeVsrBkbHTRaKMr4fhCc awmafSm6nRBdoUzkTTRi wDrqgN8fXlVrMoSuYQsl bGFpblxmMVxmczIwXGxh tfwyHJAqHRtuZ5arNlYd DZRasHsmPDxgc5NgWMKn TMYnMgqwpcLwBELlH26c bGVjdGVkXHBsYWluXGYx XGZzMjBcbGFuZzEwMzNc aGljaFxmMVxkYmNoXGYx AIwyL0hzOdClN1IeKZFh EbNvaHGvJ0hbN4RksYlj YXJkXGludGJsXHNzcGFy DRH9zEHtgyJvzVZwgVPc TCKrOOteVMP7aJHsjnop oNRywqjfVThnzqC8JQUv YWluXGYxXGZzMjBcbGFu ZzEwMzNcaGljaFxmMVxk XqOnBZNvTSciC2kyKmYz E8BtVIIxTlVxOcAHTXIy aXZlZFxwbGFpblxmMVxm czIwXGxhbmcxMDMzXGhp S9izQuYwFBEvaEfuCWqs o4MsQVHpHZMlUmdeznKc JGn4xeQcPAVdqAfmmC56 Culxdg65IHLuq1ckLPGn T0GvmNJuIQRfkTNlBOin MDhcdHJwYWRkZmwzXHRy cGFkZHIxMDhcdHJwYWRk ZnIzXHRycGFkZHQwXHRy jEQcCUX3U5k6bfLcNSEu CWf2myRnKGFuKrWwrCGt MIL8CDc7SlwukxD1lHDc G7l8TszcbaQlYErbuFWv nj93KCEuziCilYRixLbp rTHuNNX6MQSpZCUpBVJm ASX6BLEzZsVvemQqUCoa bGJyZHJiXGJyZHJzXGJy KZV4VQRvNhKpxuRqZSfy bGJyZHJsXGJyZHJzXGJy GHT5HHLwFbQhsnKdLUfo bGJyZHJyXGJyZHJzXGJy VOU0YAIhSdOunnAtMRoe bHBhZHQxMFxjbHBhZGZ0 E9jefJObKYOxCUhnoMDq MJMtU0ydeZPyESoqZBTb cGFkZmwzXGNscGFkYjBc D0vzSYIrRnXwL1IsyDo7 MDAwXGNsdmVydGFsdFxj fPYwLIO4WTZpQUXwEBRa JHE2ORCaBaHxbeYaYQlg bGJyZHJiXGJyZHJzXGJy AJO6URWvAaMuxoEpFFgi bGJyZHJsXGJyZHJzXGJy CSH1EISnOmExhfWiJQhp bGJyZHJyXGJyZHJzXGJy QQH0SMPjGzQpurPzAWsf bHBhZHQxMFxjbHBhZGZ0 D6zxoSUtZKBzYTrqkBWc ANNkM5nbgYLmGNviTXZt cGFkZmwzXGNscGFkYjBc S1ubTUTkMeRwQ4FqmGg8 NjAwXGNsdmVydGFsdFxj mEGcYFI6TYGhWWDeLMHr FUG4VTDkHyYcedEtRSlt bGJyZHJiXGJyZHJzXGJy PHY8AOPdDkQkjgDwOCcp bGJyZHJsXGJyZHJzXGJy THK8QBGqYzKdvbUwOJad bGJyZHJyXGJyZHJzXGJy WZV6FJBkSjOtpkAxGGfq bHBhZHQxMFxjbHBhZGZ0 H9itlSRgRBOwFEmtuGMz QEYxT4gqjJCjUZaxCMPk cGFkZmwzXGNscGFkYjBc E2cmOQHmKfSyN1SwzFf7 RfYwQEYolmTzcQ64Lnqt o4VrQQWxMRH9CZpaQRoo bFxwbGFpblxmMFxmczI0 XHBsYWluXGYxXGZzMjBc bGFuZzEwMzNcaGljaFxm VTwzOmUcKPAtXZtvA7gt LwPzP5XuPXMkOyVqQD1d KrHpWOF6RzA6SXK6GAVU QJPiJHDCJ5VQPchdOIHU E1RfzHpvjR6aTqZgUuYs ATzbIU4yEOOpT4lnyZVi LOPsUXOfT9wbUjAevR9c aFxmMVxjZjJcZnMyMFxs dHJjaFxjZWxsXHBhcmRc eC36Fdapv9JvZWBpSGD3 MFxzMFxxbFxwbGFpblxm UWjhnnX5ZDReMOycWJFv XGZzMjBcbGFuZzEwMzNc aGljaFxmMVxkYmNoXGYx IDqgI2ehArEfJ5AxKVPf AnHpRh1jEB2mXCFrPMZw YWluXGYxXGZzMjBcbGFu ZzEwMzNcaGljaFxmMVxk PzFgVNWjNHmdO4ncUbDp L1PjWWYaRlDliRTyH0xa K6PnfItoVFWfIGzggTVz DTSuhFNwXSD1pBFtgbAe dBdlaEtpgZ4lTbXbDmOb NFxwbGFpblxmMVxmczIw NUlmuzlbOUQpPGexX4ti EbBfDMXboIkuUExjs7Mf XGYxXGNmMlxmczIwIDcv MjMvMjAyMFxwbGFpblxm MVxmczIwXGxhbmcxMDMz DBbpN0lcOnWpEQRjgOnm NCbsc0ZyLIHaCSSfBxxr ewVaFYw4wpOwDOFccIlh zY78Xrqjmh72NASsyrZd q0CjMLXbSPQ5QOcsYNre bFxwbGFpblxmMFxmczI0 XHBsYWluXGYxXGZzMjBc bGFuZzEwMzNcaGljaFxm IFxpSqXzJXSxNNaoR7tc ZjFcZnMyMFxwYXJ9 Diagnosis (test code = k6zfuFHyFSAxcOM0NCXv 34) AAFoc2mze4ZraOVcrMNl PBtmaTBfwlUzdk18kIS3 rO38RA9aYYPlWcO2HITo vjA3Vuz4VIYsYYEgaDPu Y357z4cdv3ubukHogQB8 fVxwYXJkXHBsYWluXGZz RtEeDCyxmFMnr2F6i3pn LIIvnPbiDPPpTo1bEQ5y NjMzNiwgcGFydHMgQSBh pzEkBbcuE6dDJWM2RzKQ cNdfT2KgJNXloFYqNKSP v7PgzU0pDMWCBWnlMUPl wsedYAJdXF2sW1ZbePSe pXwyD5YdlTVgVwNsr1d2 kDbvCbwxhEF8PClbcB2s LGD5kxHbFkOapVVkIWCk m4h2hZ8bxMckNBTNuoNi lBSYKDfgX02gLPR8MUFk cJvou4HvHSaeLSEeNNXt dGlmaWVkIChzdWJtaXR0 CTWmP2JxiFmamn9TaAKo aojlt3IenX1qTgjvCAKt vGCrGQNxIFY7l62nA6er QZKycTV7sX5lVZ5bg25s WUTgq8JtwPrsdKomZVPL iZjdfUisTK44B17jXSI0 hWGtGD0xgSAaU5nuk70p MrVlpkSuyFb6TMBxGOZ8 gms8jKHdOXFdxpNCjiDj uDJSSRedV23eLGS3MPOb jYoka7GzXUhrYQIkDBUx dGlmaWVkIChzdWJtaXR0 KRIcX9WmgFqheh3BbVRa kltyr7BfaG7pGtipOBV1 Disclaimer (test code = m1mwcXPiIUYchBXgHiSe 9844) UNFoXDYqc9xxTJMxaKAp ZzEwMzNcZnRuYmpcdWMx JVXxMyTdl0kpq522pQPv s8krYWSyCkP0cCFcLWXv jIUhB925BSKjDAkol6jx c5EvMXJruPLxe7F7GTSA gcjgnQn0dFqfF36mt4X5 XtwbG8lyCVGjKMCbK5Pk MD6nLARwXhk8GBM5XCZ7 DZFaONCwN6OfOB0kJMCn rVQaNOa2j1gatVnxWXTs CGB2d2icELwdbvKqPV8o yr4hoAa3o1vjalVgIJWx XINoqRZIIQWiI7KpoDey Io5qyWl8zUxdXuerKAR3 Lbc2MC2ifk10dhr4zPod PGHfibgtEqN2HInaEFKj uywdGTi0DFtzWUDzcDC8 ITVwdTGoK4JbEQCvOK7n cjl5OLL5BKovSUIfBmW0 NDBcaGVhZGVyeTcyMFxm m260JVT6UrFhXU6xA7Nb g8W5vH8pfQYeDMVbjUMi AqBqVGHpxy5wvTAiLEao z7LhYQD4dpZ9zRZwaLKf NCLcOX16Wciaw2NoWbru VOE2FXVujdJsk7Ehs5qp TnIgctIbN7waC8YmLKNw LMImBWTuSrBaddEqt5Ym d1BuvXItmPx1m5piPCRx QSGodIobo0wtCMB3VXCj P8F8uGMwd8ahSNecEGNd bQY0aqQ6AKFtaHEvT6Aa iU4rJXHvKJ8nuck4b6fk GXX5AHnnDEKiWoG4orP9 NDBcaGVhZGVyeTcyMFxm h776OSK9DcNuWAUsz8Yg F3UwwVraJ98eoZcxS21e GSPecQphaL8wvGazcP1x ZjBcZnMyNFxxbFxwbGFp psonODrhdmL8NDijdnpw MJKoGBboQ9kbHcZdOLMi vAuiXUywm1VpRMIbJLLd HgcmkiK2YUQRn82fOOXu d1FwQUIjgF2nmRRtSEhh qeCijXI0TPyfefPxZpVs fdXkYPSpcG8jVTLyXI1l ENPoomUshr9ldyJdKRMp YSNuJ2VgejzfjOafjqIh ZLDhup6xjoCzKDC7JSBY EO0WCQOoBQIay55gWVCe rSgyjH6cuDPguxKeWRLw f4WksM5clGNSBZYzC9bk ZD8kKMbrk9HnqEQbpTBx dHZ6BIKxt1YbWuKxlzQj sOXfsGZcG3AmmLwhO3iu DWJeWTBdufNzvUHpd3Au CCIgiKI1pYQeBI9PMlFG h58qBYVcWFFHbeBiOONk lLvlaMM2awR6wY1dXxWY ZiBhcHBsaWNhYmxlLCBj s219xv1rexV9HSLwXTNz cldfl8JxORFcYAXvpZ09 NJOpYZUmmh1iigegjLHl riTyD2Whqdi2vZ5wTLTd YWluXGYxXGZzMjJcbGFu ZzEwMzNcaGljaFxmMVxk UtHjMJIiNHmnX6tsBaMu ZnMyMlxwYXJ9 MD [facility] [id number] 22:58:52 Test Item Value Reference Range Interpretation Comments Final Report (test No growth code = 8488) Path Review - Urine The results have been (test code = 8483) reviewed and electronically signed by Pathologist:JOSÉ ROLDAN MD #[id number] MD [facility]MP HCV Ab Path [id number] 11:24:45 Test Item Value Reference Range Interpretation Comments HCV Ab Path There is NO Interp (test serologic code = 8923) evidence of ____DEMI KIRK MD - Hepatitis C 08594Tnvkbcag b y: DEMI virus antibody. ADWOA BLOUNT MD - [id number] D ate/Time: 12.07.2019 6:24 AM CDT Transcribed Taras e/Time: 12.07.2019 6:24 AM CDTElectronical ly Signed By: DEMI KIRK MD - [id number] on 12.06 6:24 AM C MD KingHepatitis C Virus Vs7549-65-46 05:01:00 Test Item Value Reference Range Interpretation Comments HCVAb. (test code Non Reactive Non Reactive Performed at: = 5762) [facility] [address] [place], [place] [address] MD KingConfirm [id number] 22:13:42 Test Item Value Reference Range Interpretation Comments ABORh Confirm. (test code = 882-1) A NEG MD KingGUA Mjoqhgbaxle7343-58-26 21:12:50 Test Item Value Reference Range Interpretation [...] implementation of new instrumentation in the [facility], allowing greater sensitivity of measurement. Urinalysis results reported by the [facility] using existing instrumentation, as well as Urinalysis testing performed manually or by backup methodology at the [facility] will remain relatively unchanged. New reporting parameters and units will now be reported for all campuses. MD Fonseca Augywwcuty9463-47-54 20:51:39 Test Item Value Reference Range Interpretation [...] A Lab Interpretation (test code = Abnormal 73923-9) MD KingX-ray Chest 2 [id number] 20:41:07FINDINGS and IMPRESSION: 1. Cardiomediastinal silhouette is [...] acute osseous findings.MD KingOSI CT Abdomen and Mjzkdp5353-03-91 18:19:30For comparison only. No interpretation requested.MD KingCT Abd/Pelvic External Gvaou7139-86-78 11:41:03This exam was not acquired at a [facility] facility and has not been interpreted by a [facility] Provider. The exam was imported into our imaging system.[facility] Hyry6395-60-94 14:36:00 Test Item Value Reference Range Interpretation Comments Case Report (test code Surgical Pathology = 104) Report Case: [id number] Authorizing Provider: Shorty Serrano MD Collected: 11/04/2019 09:11 AM Ordering Location: [facility] Endoscopy Received: 11/04/2019 11:42 AM Services Pathologist: Alda Van MD Specimens: A) - Polyp, Gastric, via forcep B) - Biopsy, Gastric, via forcep R/O H-pylori DIAGNOSIS (test code = o8yngRBpWFYzf9hrHCCenB 3220) FuZzEwMzNcZnRuYmpcdWMx KFhtryKoBEvoa3BxO7EwIg AwMFxhbnNpXGRlZmxhbmcx KMDyIWI6ctQqXVMrMJlwZO XlVUmvLk9zsWAqwCtuLsNg JQOdh9yipzCIithyrMg1z4 auCDAbWsZ8oAWeZJdjP4mk nuMcgEIuPTRiKYy1zL20TJ LfpM2vwUGbPMaqhiTiTXdr hxFbaqUmKzq8KFUwK8avWP CtNHDjZ8VxEC4mHGRnXai7 KVZ8UGI0hIbeg7Z0xPLpzN XgpVxrAiLsRsHsJRRBn3Cr MUe7qHmdA5LkYZFqCcD5yG QgUGFyYWdyYXBoIEZvbnQ7 pR90MXnxblU3qETwt5Bea3 8kp767rW7ogPZlXPB6IPMv VHKqfUPdYDGsCNY9DACmhM CpT4a4AxXvhYVhL6O6BaVg pXLyE9M7CbCecLHdU4I7Aw IjyMNbFRInwHTtZa2ucDIy eJZssu0iup12JNQ4o7HgkJ oaQGL0UFN2IeSqVs4zkKBr FYXrKY3xGrHbqBEbQYLzmv 45zJlvVJoulcCakL3qNxKl ZTNvbYOnUBWuNZ9rmXQwLB KspV9rxqkfVDHhZbCfaood NRZboFaxrnSsWd8vdTvcMP I2MLbkY9xhyX0pJlN5NFvp M7euqP7aGWs9WVdwbQS7VZ SruW6zJC9nvtodx3tbKcMv GK9wizniu0mxAiOxSV2wdu o1j8anWeJuVL8jyfxfb3st NzIwXGhlYWRlcnkwXGZvb3 KjutjyXKXtq1UiE4TngLud S71idYepE67eOTZicNitrS 0dzOrfoF3jBsEjCyJsTJge bFxwbGFpblxmMFxmczIwXH KdLSldOROaPTXhUdDgVH2y Y0GYTVJLAiWMS0mHJVAJWI 8SY5ryyJSrSX1kCTYnNY9V XALWTGXnBDIMR6ARFJBKTr FHTUVOVCBTVUdHRVNUSVZF UT8SVBVRErNSRaIVWHEVIA LXU5bTNNkkFPXuwJwmfU4v SoNgIwRxOJMjYDDlJB4EWN lOVEVTVElOQUwgTUVUQVBM AZHIWNfnKCcBMIeOH7pTZQ 7TQPXXCjAWAh3UPFOHJUGT VElJRklFRFxwYXIgLSAgIC ZQHnGUMWvGH43LIOXZBEGd APvJB2BRDAaHG7YxH0JSWS 2VS70RUHoBKR4CJJDCRNCs S81oY8YVSAaDMxNGZUZKUi hlC0YVLS6maFnztF9hVwOd ZnMyMFxwYXJccGFyXHBsYW vcIRBoZXApBvSfVd4fL9GU OEHCPDzlMF1ALbXYC4SBZy RPTSwgQklPUFNZXHBhciAt ZAOoJ3dMB57YErNRFlXHQS bOXMYEVHFTXskAKEHwSP3T TklNQUwtTUlMRFxwYXIgLS JfXA4QJGeNUOBIQSnPSPaz TUVUQVBMQVNJQSwgRFlTUE pEX6gMQC8MYKNJMgGCBg9B QSBJREVOVElJRklFRFxwYX FqEVUqSU3BSDwDQJrRY7UW O5TIKqWSIXxBTnvpYCrODU BPUkdBTklTTVMgSURFTlRJ RklFRCBPTiBXQVJUSElOIF NUQVJSWSBTVEFJTlxwYXJ9 v6jvePBqCRNzqRDfOXOeHY xhbnNpXGRlZmxhbmcxMDMz CQK4qcOgNRLrQFmlEREsWD epSu2hoHXzuGrzZgIeWHUc a5lepdNFkrwgbPj3e4jsFS BmXnJ2cCGrDJzbD2qekjAy tKMlBIDdNPx9nQ57JHMohZ 0wmDJqCClcogHaMbC5NDbb XIBfZkC1OHCdpJWwDNQyR6 xyZWQwXGdyZWVuMFxibHVl YML4bJulo3O5vYBjdQLxgY mqBaTsJlNxUhEBx7DgXVs7 yKojM7ZzBUOuOyR1jYYdZZ EkIPutPLXzEDKftjZ4oZ14 FLpencH5rKXkv1Plt06ls3 83uP1hvBEpINF9AWLbZGXk jUTbHFOzXTD3QQOloHXyC0 ctEGDcBI5bpjhkXLryPKye HOYenGO6ESCriQXfJ9MuJL ZlJWkrJUUynyk8PrWeAm9r lOTvuIfhIWtng6svd3eruB NuCkw6AJYqQcWpBxmwYCxn v4Sgb5nuEYMoel1eBXS3uP PqrTuug3E9mEItFWWzfLVg TPRcNT8chGJaGPAqtR8cpn xjXHBnYnJkcmhlYWRccGdi faIwGz7zrXurJZZ3YCavV3 wenR6vGtO8EAurN7eugX6x XRz5ENrgQYLkaJH6boL1NJ BftSVpS0YwyB3lAHZgAC9x boi9i2lcKZT3CVzkWTYrIg O1yiD8PMSzfAWnPLEntXuy BBtlg063UNY5QwPlBFUge9 BeT0RmpIlaR09bxHqbW06r IGTieXaebK1zpEdmmE0nAx VnTcRgBFytfOaxXE9cMOWu S9fasJArMKOgCTAaI7ieUh FgjL1rxIloSJgftjOxBPBq Zgz2OAIhvZJxFOSwImk0ML DpABVbC63dreikTJY0qW6f i5dwn7CjNXzsSRP0LBCoo6 3jHQuyujC3PQelKn0sBKNi NQx6UTvuJGW0rN== CPT Code(s) (test code a9kryFYjVINcvCMeZsVnZX = 3357) FzRIXfv8wfGOSejFQkDzCu MzNcZnRuYmpcdWMxXGRlZm Vgr7arx375cWBxw5cuIFXs EjP0iOUgSIAhlLNdB280i4 jla7mhhlBdhGE9YZOgWKJ0 QUfwwjSprvG2YLjaoAViTf Q4UIubhdEgLVoihfOoppYf Lbm8LJKvS667YDU9jQmql0 itHHU5LVPwZAZnEgNfYl9r vFMnX566YINvAVPIIXWuwV o4KGUtczFrstKaqFIGi219 Y340d7ocSBFkomHhmAyCcf imu8mhS715ELMrxJTiovWc TfAaGTWbpNPowYR8BAVfFS 8zajzyWpKgOX8jxwsyZsFu LH9uuag3RyGmUG4ypgalKe LgXHwfRNOqmeiiAMByh4Ee czqsKN0nV9Iek0O0mB4ajX MeUJMhbWUpGiTjMIQohg9q nEQtWFjbh5LsXAL7mjJ5nG HikQIpNBYyEX39Tfnin6Om UwxhSOY7JUXnwaCln2Cus4 yiEoNajdPdU6kxL7GzJIAl NEVsDLTpPnErbeXsi7Hjv0 AopDVdiFp1n1tyKZRlJCCe mUxsu4qdCOW6FPZhP7W2qY Bwr4ezPDmyYLEkcEV9zpdq NKboRKMmkzN0gvnkHXylHO DvyVM9ullpHXyyNVUqXoV7 sjvbTXdtTIZnNIF7XMvpc2 72OAK9KMjiXccjVXfxRODf bmNvbnRccGduZGVjXHBsYW luXHBsYWluXGYwXGZzMjRc sMswcFtslX2uWcFgKvVxPG oqNU0bFZOfN2mmrZEwWSXa FWNlV6paJoKapB0vpItoOO uheoYqMAk9ZuI6LVcrZmxw ODgzMTIgWCAyXHBhcn0= CLINICAL HISTORY (test q8uuaTZuDTYgqTMmWtTtFO code = 3356) JrMKGvt8btXPZacPLaWkHj MzNcZnRuYmpcdWMxXGRlZm Xru0eoe333xZJua9bfETEj PtI8rKTiFOQplHOaP037QA IhHPkop3iwn0VmIEEupDTt v2S6OFFVaxclcMp9jWstU3 5sr7Q2HynmU6xbWMHfSJkh ODQwQFdncLOmWAF2EIQbYL R6QVihfbUlyjB3LQctdFIk KmD8SQu7y8zhkAbmMYOzEH F6l7ptBFcnwyXdDX9skw3j cYj1f5seooDfMJMhVVNbpT KZGQHlA8PcoCqhXh4ciZi0 rWuxPcswKKE1Pwe5FC0gif 99jyb4tBiiVQKtsfceFtW7 UJmgZGCnuyklHQi0UYwlFN JnbDcyMFxtYXJncjcyMFxt YXJndDcyMFxtYXJnYjcyMF lxVIZtVER9RIjvw000ORS5 NTfgt2gof6gcrIBwVrl7QK FoBtCnYetwNCzjr5Xin0cd GYWfmd9jTCE4yJZgbGiga6 J1eCYsNZVsaJUuwyJyILUk RgG6ZPlaKZ4iwt26KJSiPR G3zy1vzPWjrXisuwDoeXCc ZPpqU3EbCPGly311JRBwF7 VjMJNkg0P4uoEgNjNpIOHd bET9wdX7CBQqMRs2cCHfhi G2ldItnERnJ6pwwD45WqVe rQJkF2DowT87MtQudIJlA5 GuxY22HzHqiQJjG2UonB33 VoQzrXDwERZitZMwWy4zeG AqxJRof2HcwVQoDSsvV85x p154KERvbvBiW3amwNYppr xwbGFpblxmMFxmczIwXHFs XHBsYWluXGYwXGZzMjBccG mvvT7qJzUjChMgNUWFka9z ADO4nzQ0WFPhcDScGYXtBD 1cT14udWrtkJ0fyVOnN1Em dXlqTY1oRHIuoKLoLACrBX 1qZ60fbTzkHYWcb7UezTpt ZUDfMDPqSXKfAAHaf4I0n7 AnOUzuA59pn2bwMrArWRRk Z0IabWSoQxOnQQjwJPLree 0= SPECIMEN SOURCE (test u1wsdSXuVNUhvEGzOiFxQG code = 3377) HePYPuf1ttMSRfkNFoJrIf MzNcZnRuYmpcdWMxXGRlZm Txa2mhn450dHVhl6tySSAz TaS7kSMfPXYfsIHhQ975CT OmWDxnv8evo1ZkMFKrvHNx w7B4ZRZXxwjwrRo3bLquE4 7ud0Z3KfrhG9bbXBUyKOlc ROLrIGtgmCPrSLN3ZMUwSZ X5MNtpvwWzruG5IKoqrWRv RlR0ETg5r5kvdHwqLYGiJW I3p2zhQRpobzZvOT5zvm2b aPv1g4kouqGbYZPpXZWhxY XXMPXlZ3QjnMbqZf2xuBb4 rSjiSxemJCF1Zco4XR3tbz 85iwc2zXihCJBcuwwnNrD1 YSyoEUXbxoamQXp1ZDetZQ JnbDcyMFxtYXJncjcyMFxt YXJndDcyMFxtYXJnYjcyMF ziJVDaFLL1DFllc037KNU3 ZAlop2kyw9mnyXWxNto6QW XkBeXuWlqqPEorj6Ueb2ev EENeam4yRZN7gNWphCjev0 D7mNPzKHJqaIJhplKjCJCj SlT2SRqiZC6vqq93SWSzUQ Z1bd1vbGKrxLzsdsKtlDLm YCnmI9BbAOKoq677RORwM7 YyIBKdp3H1yvFjEwDwRBJc uGZ8zdS4DLFfVIo6kWXbyr C8ptLkdMCuS8tudD85ShIs xZZgH7CtfY50VlNceCFgM2 BnrO19TnFypLJbA9UnvQ79 MiAtoVSsYSVsfNQkKt2buO ZbzSRvv1QnwIOjTTquO35c t558FQVobcStP3ieyHSrod xwbGFpblxmMFxmczIwXHFs XHBsYWluXGYwXGZzMjBccG ynkQ5gAhFbUaZbCPLZMsNP n8p4gXixT1XduCAyYwnnqu ntZSZhpyKvtHS2SVSzBWQl e1TobJlhN4JpjCBjPdzjir lhIGZvcmNlcHMgXHBsYWlu XGYxXGZzMjAgcnVsZSBvdX LcaGxwqA5aBvGxKyNbVKVw RA1yfWkzj7LdMUKada2= GROSS DESCRIPTION (test h0xsjCCqAUVyaZZbYiHlUT code = 3366) HuOPStl4zsPRXmgLWoGlSt MzNcZnRuYmpcdWMxXGRlZm Mhp2njo575bLEzp8kvWLOw QwH1qHBfCMEpnWDcF665RD GqHHmsh1uyy6SrYMEjnMTw h9E4COLHbbhvnMj1mYpzN6 9qn5G4MyvmV9oyBHQnNJsz DHAiKUfqdWLwUOG6UBLqNS F4OHqcvzHqiiZ3NKzdlUCo HnI9ENv6n2evcPsvHPNuTN Z8a4zpTXeoelBkVB5gth6n uRn8y4gbyjNoSHWbHJFkiE IPSNQjX8KvnQiiPl2erHb6 qWpzOxryMPI9Smn4SC8dat 88fpe5rSvpNTCbqnpuAcR2 ISlxOSXbwiqvNZf7WWzoYJ JnbDcyMFxtYXJncjcyMFxt YXJndDcyMFxtYXJnYjcyMF arXNXuQWT4YAgkh852YNG4 OWhwa4vnf8pjoVBgXcy3QE QlCpLlYewwPOlzx4Hdl5bo MFAauz0kEAU5wQZhsAmhe7 R9gJUgDNQmvEEmseIxLMZb NuV6DWreLM9nju05ZRXjPP G2do0hkDIltAkvweBxsCVe MYvbO9QvPZZfr471KSHnG9 KqORGfu0N9csZkYoTuEMVx nJR3niX4EJAfNPh2wZPqgq M2srVerEJbA9ihlT39WjDz oWJdE7ZoaH36AdPdsTBuQ4 AasZ80LiKryHFsZ5UqrL93 ZbPsbNYyVDJwwFLhTo9kyA EfjVEzq6CbxWEdBMijP09s m002VZKcwfEpX2wubLSxjy xwbGFpblxmMFxmczIwXHFs XHBsYWluXGYwXGZzMjBccG yqmZ3vDnVkZgUkPRWOCbOA pIZbj7EyD4saOZ3djDGlGG BsYWluXGYxXGZzMjAgcmVj ZUk1TJCwhB1yFm2ahMIivC 7ryZAlYLxhRYJ7bWXfWJYj DWWcEDCkGN59V2EzckAtIC hiBJRfEXTdmT0lZE10aHFo ciBhbmQgInBvbHlwLCBnYX Y1eablGtSktqEnS94hj4kq nMTtv3ApdPqlJNUqax8auB 6lDY57X22tHLeeS300OVIe LJJnoJKmJHVmi6VrfNdch4 MwBX3kGQZ5urkoNlIkEqEb qFSeIkMhqOTiLzCxX11nYU OxAPFfhEWikV7idqWqzwNg jEIbhXV5HEZeRF21wJLehU wpLx6hnZ09cE0xPSKgkGQd VNFvc31goI4dIALfPTKjEV W0JWRAFJ4gCZFipahmVUJv Ve5nZEicKKOoFPZrzUGaKP wxEMQqQ2YdmoCrIHndGBPn nq5hbEocRPtrOxZqLYGyp7 x3kZE7nHNthRO7cTHbpThj ZN4ufPJqVZVgW4Vcw6zdxa WnwI4kDXKiXK0yYANHkG4m h5lbH2JriBOaThJfDU0sCO EqyrHpm0WmMD7yZK7bKKO8 TD2kbUprcjHbcOYcg5MySC VmrvFqZXArjEmkC1Gji9Eq bSxro6HiPT5vPWP5juuyCu AwLjIgeCAwLjIgeCAwLjEg P06lIMZwALPejZBjqS4yyi QoxuDlyGXveYZ1RZTpOS32 zIAccKieMy9jhG51sL2xYC WxjIPtGKSmp96hqK6kAUCz VPHeLQQ1QQYEHM3mPJzLL3 BsXHBhcn0= MICROSCOPIC DESCRIPTION q9hwbHDnXDSskGOrFpZbLX (test code = 3371) BeAHSul0rtOFFrmXDwOrJt MzNcZnRuYmpcdWMxXGRlZm Jyb8fie710cTDjz0gkNQAb HbT3xTFhWQDypRQtJ110j3 vsu2ghvnOlcKX1SIPwLXU4 TGbxouUdfzG7PNfbzYRsOd M9XZzztvFfEHxyukVuhiLj Vnq2SZXxX547JTK0vZmzx3 uvBPM8DNKhQFTtSzDuXm9g iLJrJ890GGYfXBNOMFWmxT v0LSGcczAnfzClvQLPe913 K304u3hzQXOtbsGjpXzLbk wee2dwY306LWSraLXnqcWi TlNoWXWoxDQkbLG5OPEzOA 1wxkivJjJkIC4xnqpwLwMx MW1gwhx1RlJfNY8xmerjOb EuFAneSEZidhxwXNFut7Hs dwewSX3iM9Vgq5Y4iL1jxL KpFFEyxZXpAvEhZEXwkf3g gUElBPurc8RwKVW8bfO1jC UuhIPuSETmUF99Lrfir1Az FrljBZA2HDSliaMsg3Dft5 vdHkBvwbSfL8ukR9SqLKLr CMNwLCLoNpEshgQex3Fgy7 WsbFNfdOm2r4gzBSPzAOAm sJaxz9cyCEV2WULbJ5M0qS Plj9kcXCrrBTTxsTJ0hcdl CUbfEVSyqtQ6jufyDGtnLC XczAC1ngpqPTfxCHBiWvA9 rrsgTAfkAFXvQMN9EIrtg9 36RQZ3LHhmUnldRZhfRNAc bmNvbnRccGduZGVjXHBsYW luXHBsYWluXGYwXGZzMjRc mUiijOcpwL0gZwGnQjLfOL gaUM6eTCZbJ9mkvKWhMHOh LWWhJ8kiKvEhrU9ahPaoJT nzykWuJZGbxrSryo8wQD4s cGFyfQ== SPECIAL STUDIES (test y8hesFKcBMSaeFZcBnDeOI code = 3376) PvLVMqt4ayCPEykPEiXeOx MzNcZnRuYmpcdWMxXGRlZm Xyi4jdn432eUMpt4bsIXTq OpU1mWHmINYaoTHeE525YC YeASvrh3shv4MkTOFabDQm m9E9UWKMDQntPeFoQ796HM GrXKlxe4gcy3WiQGJduIWs g6S3AHDKgmlyjKh2yWjlJ6 9om6X3UaroX3adXDCyWFHl H8HvKI9dXGQcXqp2JXH9DF H2BPCjFTKrU1DtSL9zUGRv mVSwYJw1a9xgmHjzELDgNH B5s1asPObksbC3QU7dba0x dAe3b5pkekOqRGJlWWKymX YYOBTsL1BkzWnsWr2jgOe9 w5kzAikucjD7hLWjZdVvZp MyMFxsaTBccmkwIENvUGF0 yQLLNXm8M497b3rwCMMdbl DzbGjVdmsst1siU902GWUq cGVydzEyMjQwXHBhcGVyaD N0YLQkLU1mattlSkWzBD4d zxkkPxFjDW6pgvm9BwLiWU 1hcmdiNzIwXGhlYWRlcnkw PTFjx1WywmmkZU7mF8Nrg1 U8zE2dkLHvFCCjeWLaYnVm VCTxdz9iwUIqLTccLFS6IL DyehOti6Apn3piEqQgmmUy O4qtS4DmJWQtMBNbAAMdLg EoomGfi3Pkg4CqzXZrqPw5 k7cbUPAiADFxsQkxl7xaTX R3LWDiG6I5sTXzu1yyMUxw IESknOE9rbrcZQmrCGClsk D2qtehNOtmHDCnwLE1vqpb FGmlVFObSuH5qfztBHmsQH SsUMZ8LSaok091EMB2AMod YmtwYWdlXHBnbmNvbnRccG duZGVjXHBsYWluXHBsYWlu XGYwXGZzMjRccWxccGxhaW 8tViTuBsBpYutiNL3gLCHm H8hfdUGtOTFkPWQsE9sbPx DwiG8tyAddUVquOzZrObXt WhRFiTUzrG40RKYnrdZ7KA Gnf72xg8TmeSfetkAxVUQn HDjkZ0f8NVLhJPIwZMG2r2 Nkd0TloU3xtJ1ijIjiaH1g oDMnkHZ2rxxhs9Hxy1KtP6 lhbCBzdGFpbnMuXHBsYWlu XGYxXGZzMjJcbGFuZzEwMz NcaGljaFxmMVxkYmNoXGYx ISywW1peVuNyE9BrDWPaUu NfyNXtG9wjfJSrCWTguejc bGFpblxmMVxmczIyXGxhbm cvWOSdZZoqA0orJzBjNCNz gBmcGVgfv5HvSGCkDJCgKr etyhOkFQDsqfSyj1zhS2rz CNEjBWD3VF5wptAmEaMaSU 7eyF51q2Dqo17mb70glO8t vXFmkwQxR45qmEKuqJVqg0 UeWYMseqTshQM7CHJmQGyw zujmn2k4qFG0iFVtgQWqxG T2qQHugWVkNRXMfMPjZMMo d947sp8nIKGvuXLtqnMfjB 0nKChxnqqdcETiYE5oNRSv UJGgQSYkGJ12mbHrMX0brS Rkl1gpfnDnwGPpi4SzdYD0 TVCqpGIvulleKh8nLG70PP HrMDbieQ3vlYUnapZmUN4b GV9oL9Y1nDXsIJRgszJgi5 etOBkuIP4pETUqmVxiPigf EKHjUODvniVlqSM2GGOucQ ypoH6lZhTjOfZfIlshMY9h SWNnS7qnsALfHSVkIYZwF5 isPqGycT2ndEgxADktYdFp ZnMyMlxsdHJjaFxwYXJccG xtvU5bYtUgEfUoVxpuJN2w EJNuP1pbiSSvGQJzQEIuG3 ygYwQphR0wnVseZJllTgAy ZnMyMiAgXHBsYWluXGYxXG ZzMjJcbGFuZzEwMzNcaGlj aFxmMVxkYmNoXGYxXGxvY2 isPzHlG6WzAFUyGlSieRIm T8koiIYdKMKyPXzaPAUfBE ZzMjJcbGFuZzEwMzNcaGlj aFxmMVxkYmNoXGYxXGxvY2 lpRwOvG9UcYCMgSpPmKT2u pC8hvNnimO7ekSXkcJV0uc mwqZYiiT0bT6WhVBOxj7Qu iibbn6FuDLPedvOtjk4hCM PxlVDEWEktm3UfG0IgSPn5 b9GudTyouY0rUdXcWhOzRf afHY8yRIRrN4mffZJpIQPo TUYvG0jyJoFvnZ7ysLwqFT fqCyHeOqCdWha1DEYjDcLr JzkyXHBsYWluXGYxXGZzMj JcbGFuZzEwMzNcaGljaFxm QVrgSrWbQMMtDXgkH7csQp QgV0AhAAEbBcXjosHMLCRo I7WmKJFfvfVcraukCUP2jQ 9gu3r6RConMi0rRYMzjbuu b2hlofWjmCWob3DqGNZfan Hlc0BuFJVfcmVzhJLeILSc tfGiyx7kccKzPLXtGEVeI3 JsquytkEautaL0DBRgSHHb rUKnnDtkPLSkHTz0ZGxczg Mbo6BuMhPydqXjjRFugvAf LG6cEILesARiqmFlVPF9PO VyVGJSVnJzAMKbh5JkCT7c AWDfhKjpQCXukN2wp7RfAG Gan55uFEPkEHFOVMLnrWNo IGRldGVybWluZWQgdGhhdC KiaUWcVMJhWXWzEL4eIXAp drBqoKCih2EhcDGqapWpe7 VslwUcEZIwUTX6GuPOhWTe vENejPIvysV8w3GfLBBuqj MzmSrciJPgnHGdwUWgg1Vp nf3zXIFcl9tqrOhcZH1xwV BiZSByZWdhcmRlZCBhcyBp swOwr8McV3U9oP2tNJewl3 ShJr3vBKRmo2ApmfYvCzQZ oOupTQhrAc9hIBYmnamqwK FvD6FrmRpeoKLxPSMfGFWy IHRoZSBDbGluaWNhbCBMYW MqqhS8y5F1QHgrdFNqogDq MJ69IQQuNQ2krICcdSLaq6 XrQCv6CJNnV4xCEV67YRfk YXMgcXVhbGlmaWVkIHRvIH HfmhCxov3asBjciASdv74t rKK2yZD0RYMneI1fU0CjJG vrDa7iQWMulteldCJqsFrx Rw3qjBppeZ2iScIoEzEaYp ljQB7eUHNkU1pcjQGlIEDc BOBmU3wnToTqiF3jhKlmXy xmczIyXHBhclxwYXJkXHBs YWluXGYwXGZzMjRccGxhaW 3nTrDsIsVwKHsgMWA7 Gross assessment was [facility] performed at ([facility], = 3786) Department of Pathology, [address] [place] [address], [place] [address], Technical component was [facility] performed at ([facility], = 2778) Department of Pathology, [address] [place] [address], Professional component [facility] was performed at ([facility], code = 2779) Department of Pathology, [address] [place] [address], [facility] Center[facility] [id number] 14:36:00Surgical Pathology Report Case: [id number] Authorizing Provider: Shorty Serrano MD Collected: 11/04/2019 09:11 AM Ordering Location: [facility] Endoscopy Received: 11/04/2019 11:42 AM [...] STARRY STAIN Signing Pathologist Direct Phone Line: [phone] signed by Alda Van MD on 11/08/2019 at 2:36 [id number] X 2, [id number] X 2Procedure: upper endoscopy, polypectomy and upper [...] are evaluated Immunohistochemistry technical testingwas performed at [facility], Pathology Laboratory where it [...] qualified to perform high complexity clinical laboratory testing.[facility], Department of Pathology, [address] [place] [address], [facility], [facility], [address] [place] [address], [facility], Department of Pathology, [address] [place] [address], [id number] 11:18:00 Test Item Value Reference Range Interpretation Comments POC-Creatinine (test 1.1 mg/dL 0.6-1.3 : TESTE D AT [place] [address] code = 1859) [facility], [address]: Bias Cutter Helper/Techni keaton ID = [id number] for Lowell Guilloryda POC-EGFR (test code 66 mL/min/1.73M2 = 1860) [id number] 11:18:00 Test Item Value Reference Range Interpretation Comments POC-CREATININE 1.1 mg/dL 0.6-1.3 : TESTED AT [facility] ([facility] (test [address] [place] [address] code = 1859) [place], [address]: Bias Cutter Helper/Techni keaton ID = [id number] for Lowell Plunkettda POC-EGFR (BEAKER) 66 mL/min/1.73M2 (test code = 1860) CT, [id number] 10:50:00Addendum BeginsREPORT STATUS:A Addendum:The urinary bladder and prostate are unremarkable. End of addendum. Signed: Anayeli Rucker WallyKimberley MDReport Verified Date/Time: 11/05/2019 10:50:11 Reading Location: [address] Radiology Reading RoomAddendum EndsFINAL REPORT CLINICAL [...] MDReport Verified Date/Time: 11/05/2019 10:16:00 Reading Location: [address] Radiology Reading Room CT abdomen/pelvis with IV contrast 2019-11-05 10:16:00Interface, External Ris In - 11/05/2019 10:52 AM CDTAddendum BeginsREPORT STATUS:A Addendum:The urinary bladder and prostate are unremarkable. End of addendum. Signed: Anayeli Rucker MDReport Verified Date/Time: 11/05/2019 10:50:11 Reading Location: [address] Radiology Reading RoomAddendum EndsFINAL REPORT CLINICAL [...] Ruckereport Verified Date/Time: 11/05/2019 10:16:00 Reading Location: [address] Radiology [facility]2019-11-02 09:00:00 Test Item Value Reference Range Interpretation Comments SARS-COV2/RT-PCR (test code = Negative Not Detected, Negative 07553-4) SARS-COV-2 PERFORMING LAB CPL (test code = 42997-6) [facility])2019-11-02 09:00:00 Test Item Value Reference Range Interpretation Comments SARS-COV2/RT-PCR (test code = Negative Not Detected, Negative [id number]) SARS-COV-2 PERFORMING LAB CPL (test code = 0688736)
[2020-05-24] MEDS ORDERED: Ringers Lactate 1,000 ML IV ONE (06:59)
--- NOTE | 2020-05-24 08:03 | ENDO RPT ---
[address], [address] COLONOSCOPY PROCEDURE REPORT EXAM DATE: 05/24/2020 PATIENT NAME: Ty Van MR #: [id number] BIRTHDATE: 1945 ATTENDING: Marcel Bearden MD STATUS: outpatient CROSS COUNTRY COACH: Robinson Carroll CST and Henna Elizabeth RN INDICATIONS: The patient is a 74 yr old Male here for a colonoscopy due to personal history of colon polyps PROCEDURE PERFORMED: Colonoscopy MEDICATIONS: Per Anesthesia. ESTIMATED BLOOD LOSS: None CONSENT: The patient understands the risks and benefits of the procedure and understands that these risks include, but are not limited to: sedation, allergic reaction, infection, perforation and/or bleeding. Alternative means of evaluation and treatment include, among others: physical exam, x-rays, and/or surgical intervention. The patient elects to proceed with this endoscopic procedure. DESCRIPTION OF PROCEDURE: During intra-op preparation period all mechanical medical equipment was checked for proper function. Hand hygiene and appropriate measures for infection prevention was taken. Procedure, possible complications, alternatives including, but not limited to possibility of bleeding, perforation, tear, infection, sepsis, need for surgery, need for blood transfusion, were explained to the patient. After the risks, benefits and alternatives of the procedure were thoroughly explained, Informed consent was verified, confirmed and timeout was successfully executed by the treatment team. The patient was placed in the left lateral position. A digital rectal exam was performed and revealed external hemorrhoids. After appropriate level of anesthesia, the scope was passed. The [id number] ([id number]) endoscope was introduced through the anus and advanced to the cecum, which was identified by transillumination from the light source, the appendix, and the ileocecal valve. The quality of the prep was fair. The instrument was then slowly withdrawn as the colon was fully examined. Scope withdrawal time was . COLON FINDINGS: Diverticula was found in the descending colon. Retroflexed views revealed no abnormalities. The scope was then completely withdrawn from the patient and the procedure terminated. ADVERSE EVENTS: There were no complications. IMPRESSIONS: 1. Diverticula in the descending colon 2. External hemorrhoids 3. Internal hemorrhoids RECOMMENDATIONS: follow-up: office 1-2 week(s) RECALL: Return in 5 year(s) for Colonoscopy. Marcel Bearden MD eSigned: Marcel Bearden MD 05/24/2020 8:03 AM cc: Jaiden Gomes M.D. CPT CODES: ICD9 CODES: PATIENT NAME: Ty Van MR#: [id number]
[2020-05-24 08:24] VITALS: BP 131/51; TEMP 98.6; O2SAT 99
== END 2020-05-24 08:20 | disposition home or self-care (01) ==
LOC: OR 06:11
PROVIDERS: ATTEND Surgery
PROC: 0DJD8ZZ Inspection of Lower Intestinal Tract, Via Natural or Artificial Opening Endoscopic (ICD-10-PCS; principal; 2020-05-24 07:30)
DX: K57.30 Diverticulosis of large intestine without perforation or abscess without bleeding (principal); K64.8 Other hemorrhoids; K64.4 Residual hemorrhoidal skin tags; I10 Essential (primary) hypertension; G47.30 Sleep apnea, unspecified; N40.0 Benign prostatic hyperplasia without lower urinary tract symptoms; Z86.010 Personal history of colon polyps; Z20.828 Contact with and (suspected) exposure to other viral communicable diseases; Z85.828 Personal history of other malignant neoplasm of skin; Z88.6 Allergy status to analgesic agent; Z82.49 Family history of ischemic heart disease and other diseases of the circulatory system
CPT/HCPCS: 45378; U0002; J7120

== ENCOUNTER 2024-05-10 06:00 | Day surgery (SDC) | payer OTHER ==
[2024-05-10] MEDS: Ringers Lactate 1,000 ML IV ONE (07:00)
[2024-05-10 10:15] VITALS: TEMP 98.6
[2024-05-10 10:17] VITALS: BP 136/68; O2SAT 98
== END 2024-05-10 10:11 | disposition home or self-care (01) ==
LOC: OR 06:00
PROVIDERS: ATTEND Surgery
PROC: 0DJD8ZZ Inspection of Lower Intestinal Tract, Via Natural or Artificial Opening Endoscopic (ICD-10-PCS; principal; 2024-05-10 09:15)
DX: Z12.11 Encounter for screening for malignant neoplasm of colon (principal); K64.4 Residual hemorrhoidal skin tags; K64.8 Other hemorrhoids; K57.30 Diverticulosis of large intestine without perforation or abscess without bleeding
CPT/HCPCS: J7120; G0121